=== PATIENT | female | born 1945 ===

== ENCOUNTER 2018-06-08 22:40 | Inpatient (IN) | payer OTHER, MEDICAID ==
[2018-06-08 22:46] VITALS: BMI 23.9
[2018-06-08 22:48] VITALS: O2SAT 96
--- NOTE | 2018-06-08 23:10 | ED PDOC ---
Arrival/HPI - General Chief Complaint: Medical Clearance Time Seen by Provider: 06/08/18 22:41 Historian: Patient - History of Present Illness Narrative History of Present Illness (Text): 06/08/18 23:06 72 year old female, whose past medical history includes bipolar disorder, dementia, and diabetes, presents to the emergency department from [facility] for psych admission. Patient was medically cleared by Dr. Travis and s ent for admission for bipolar disorder and aggressive behavior. Patient denies any complaints at present time. Patient denies any fever, chills, chest pain, shortness of breath, nausea, vomiting, diarrhea, urinary symptoms, back pain, neck pain, headache, dizziness, or any other complaints. PMD: Dr. Sigifredo Paniagua Context: Other (Transfer) Past Medical History - Provider Review Nursing Documentation Reviewed: Yes - Cardiac Hx Hypertension: Yes - Endocrine/Metabolic Hx Diabetes Mellitus Type 2: Yes Hx Hyperthyroidism: Yes Hx Hypothyroidism: Yes - Gastrointestinal Hx Gall Bladder Disease: Yes - Psychiatric Hx Bipolar Disorder: Yes Hx Depression: Yes Hx Substance Use: No - Surgical History Hx Appendectomy: Yes Hx Cholecystectomy: Yes Family/Social History - Physician Review Nursing Documentation Reviewed: Yes Family/Social History: No Known Family HX Smoking Status: Never Smoked Hx Alcohol Use: No Hx Substance Use: No Allergies/Home Meds Allergies/Adverse Reactions: Allergies No Known Allergies Allergy (Verified 06/08/18 22:46) Review of Systems - Physician Review All systems were reviewed & negative as marked: Yes - Review of Systems Constitutional: absent: Fevers, Other (Chills) Respiratory: absent: SOB Cardiovascular: absent: Chest Pain Gastrointestinal: absent: Diarrhea, Nausea, Vomiting Genitourinary Female: absent: Dysuria, Frequency, Hematuria Musculoskeletal: absent: Back Pain, Neck Pain Neurological: absent: Headache, Dizziness Physical Exam Vital Signs Reviewed: Yes Vital Signs Temp Pulse Resp BP Pulse Ox 06/08/18 22:47 97.8 F 89 18 111/70 96 Temperature: Afebrile Blood Pressure: Normal Pulse: Regular Respiratory Rate: Normal Appearance: Positive for: Well-Appearing, Non-Toxic, Comfortable Pain Distress: None Mental Status: Positive for: Alert and Oriented X 3 - Systems Exam Head: Present: Atraumatic, Normocephalic Pupils: Present: PERRL Extroacular Muscles: Present: EOMI Conjunctiva: Present: Normal Mouth: Present: Moist Mucous Membranes Neck: Present: Normal Range of Motion Respiratory/Chest: Present: Clear to Auscultation, Good Air Exchange. No: Respiratory Distress, Accessory Muscle Use Cardiovascular: Present: Regular Rate and Rhythm, Normal S1, S2. No: Murmurs Abdomen: No: Tenderness, Distention, Peritoneal Signs Back: Present: Normal Inspection Upper Extremity: Present: Normal Inspection. No: Cyanosis, Edema Lower Extremity: Present: Normal Inspection. No: Edema Neurological: Present: GCS=15, CN II-XII Intact, Speech Normal Skin: Present: Warm, Dry, Normal Color. No: Rashes Psychiatric: Present: Alert, Oriented x 3, Normal Insight, Normal Concentration Medical Decision Making ED Course and Treatment: 06/08/18 23:11 Impression: 72 year old female presents for psych admission for bipolar disorder and aggressive behavior. Patient was medically cleared by Dr. Travis at [facility]. Plan: -- disposition Progress Notes: - Scribe Statement The provider has reviewed the documentation as recorded by the Arabella Temple Provider Scribe Attestation: All medical record entries made by the Arabella were at my direction and personally dictated by me. I have reviewed the chart and agree that the record accurately reflects my personal performance of the history, physical exam, medical decision making, and the department course for this patient. I have also personally directed, reviewed, and agree with the discharge instructions and disposition. Disposition/Present on Arrival - Present on Arrival Any Indicators Present on Arrival: No History of DVT/PE: No History of Uncontrolled Diabetes: No Urinary Catheter: No History of Decub. Ulcer: No History Surgical Site Infection Following: None - Disposition Have Diagnosis and Disposition been Completed?: Yes Diagnosis: Aggressive behavior, Bipolar disorder Disposition: HOSPITALIZED Disposition Time: 23:05 Condition: STABLE
[2018-06-09] MEDS ORDERED: Magnesium Hydroxide Susp 30 ml UD PO PRN (05:47)
[2018-06-09] MEDS ORDERED: Alum-Mag Hydrox-Simethicone Susp (30 mL) PO PRN (05:47)
[2018-06-09] MEDS ORDERED: Dextrose 50% SYRINGE Inj (50 ml) IV PRN (05:54)
[2018-06-09] MEDS: Levothyroxine 88 MCG TAB PO SCH (07:31)
[2018-06-09] MEDS: Pantoprazole 40 mg EC Tab PO SCH (07:31)
[2018-06-09 07:53] LABS: BASO # 0.03 K/mm3 (0.0-2.0); BASO % 0.4 % (0.0-3.0); EOS # 0.1 (0.0-0.7); EOS % 1.6 % (1.5-5.0); GRAN % 44.7 % (50.0-68.0); HEMOGLOBIN 13.9 g/dL (12.0-16.0); LYMPH # 3.2 (1.2-3.4); LYMPH % 48.1 % (22.0-35.0); MEAN CELL VOLUME 91.7 fl (80.0-105.0); MEAN CORPUSCULAR HEMOGLOBIN 30.2 pg (25.0-35.0); MEAN CORPUSCULAR HGB CONC 32.9 g/dl (31.0-37.0); MEAN PLATELET VOLUME 9.9 fl (7.0-11.0); MONO # 0.4 (0.1-0.6); MONO % 5.2 % (1.0-6.0); RBC 4.6 10^6/uL (3.5-6.1); RED CELL DISTRIBUTION WIDTH 13.8 % (11.5-14.5); WHITE BLOOD COUNT 6.7 10^3/uL (4.5-11.0)
[2018-06-09 08:16] LABS: ALB/GLOB RATIO 1.2 (1.1-1.8); ALBUMIN 3.5 g/dL (3.0-4.8); ALT/SGPT 55 U/L (7-56); AST/SGOT 25 U/L (14-36); BLOOD UREA NITROGEN 15 mg/dL (7-21); CALCIUM 9.4 mg/dL (8.4-10.5); GFR NON-AFRICAN AMERICAN > 60; HDL CHOLESTEROL 40 mg/dL (29-60)
[2018-06-09 08:27] LABS: LDL CHOLESTEROL 137 mg/dL (0-129)
[2018-06-09 09:46] LABS: ALB/GLOB RATIO 1.1 (1.1-1.8); ALBUMIN 3.6 g/dL (3.0-4.8); BILIRUBIN,DIRECT 0.1 mg/dL (0.0-0.4)
[2018-06-09 09:58] LABS: FREE T4 1.21 ng/dL (0.78-2.19); T4 8.9 ug/dL (5.5-11.0)
[2018-06-09 10:11] LABS: T3 1.26 ng/mL (0.97-1.69)
[2018-06-09] MEDS: Insulin Regular 1 UNITS/0.01 ML ML SC SCH ×4 (11:00→21:50)
--- NOTE | 2018-06-09 12:46 | PCM.PSYCH ---
Initial Psychiatric Evaluation - Initial Psychiatric Evaluation Type of Admission: Voluntary Legal Status: Capacity History of Present Illness and Precipitating Events: Patient is a 72-year-old female with a history of bipolar disorder and dementia, prior psychiatric admissions at [facility] for depression and SA via drug OD, compliant with medications prescribed by her retired psychiatrist, Dr. Field who was transferred from [facility] for treatment of depression, anxiety and increased forgetfulness. I reviewed [facility] records which indicate the patient presented to their ER on June 02, 2018 with complaints of dizziness . She was treated for a fracture/dislocation of the left fourth finger and was to instruct a follow up with a hand specialist in a couple days. She was also treated for uncontrolled diabetes and evaluated for dizziness and near syncope. She was noted to somatic, depressed and anxious despite reported compliance with outpatient psychiatric medications of Seroquel 400 HS, Ambien 10 HS and klonopin 0.5 mg pi TID. Apparently patient was very worried because her psychiatrist, Dr. Field recently retired and she didn't know how to obtain another psychiatrist. I met with patient at bedside and although she is cooperative she presents as a poor and vague historian. Patient indicates awareness as she is at [facility] however she has no idea what month or year it is. She reports that she is profoundly depressed and anxious however denies any perceptual disturbance or SI. Presently she denies any discomfort pain or side effects of her medication and has been in fair behavior control since her transfer from [facility] PSYCHIATRIC HISTORY History of bipolar disorder and dementia prior psychiatric admissions at [facility] for depression and SA via drug OD, Compliant with medications prescribed by her retired psychiatrist, Dr. Field-- Seroquel 400 HS, Ambien 10 HS and klonopin 0.5 mg pi TID SOCIAL HISTORY Born and raised in [facility]. Patient has 5 children and reportedly resides in by herself. The patient failed the outpatient lower level of care: Yes Current Medications: Active Medications Generic Name Dose Route Start Last Admin Trade Name Freq PRN Reason Stop Dose Admin Clonazepam 0.5 mg 06/09/18 08:00 Klonopin PO BID JAVY Protocol Zolpidem Tartrate 5 mg 06/09/18 00:16 06/09/18 00:19 Ambien PO 5 mg HS PRN Administration Insomnia Protocol Present on Admission - Present on Admission Any Indicators Present on Admission: No - Notes: Notes:: Please refer to findings from physical exams and ROS from [facility] records as well as 06/08/17 ER records at [facility] Review of Systems - Review of Systems Review of Systems: Please refer to findings from physical exams and ROS from [facility] records as well as 06/08/17 ER records at [facility] - Constitutional Constitutional: As Per HPI - EENT Eyes: As Per HPI Ears: As Per HPI Nose/Mouth/Throat: As Per HPI - Breasts Breasts: As Per HPI - Cardiovascular Cardiovascular: As Per HPI - Respiratory Respiratory: As Per HPI - Gastrointestinal Gastrointestinal: As Per HPI - Genitourinary Genitourinary: As Per HPI - Reproductive: Female Reproductive:Female: As Per HPI - Menstruation Menstruation: As Per HPI - Musculoskeletal Musculoskeletal: As Per HPI - Integumentary Integumentary: As Per HPI - Neurological Neurological: As Per HPI - Psychiatric Psychiatric: As Per HPI - Endocrine Endocrine: As Per HPI - Hematologic/Lymphatic Hematologic: As Per HPI Past Patient History - Past Psychiatric History Prior Professional Help: See HPI - PSYCHIATRIC Hx Bipolar Disorder: Yes Hx Depression: Yes Hx Substance Use: No - CARDIAC Hx Hypertension: Yes - ENDOCRINE/METABOLIC Hx Diabetes Mellitus Type 2: Yes Hx Hyperthyroidism: Yes Hx Hypothyroidism: Yes - GASTROINTESTINAL Hx Gall Bladder Disease: Yes - SURGICAL HISTORY Hx Appendectomy: Yes Hx Cholecystectomy: Yes - Medical/Surgical History Reviewed & confirmed: by nm Meds Allergies/Adverse Reactions: Allergies Allergy/AdvReac Type Severity Reaction Status Date / Time No Known Allergies Allergy Verified 06/09/18 07:11 Mental Status Examination - Personal Presentation Personal Presentation: Looks stated age - Affect Affect: Constricted - Motor Activity Motor Activity: Calm - Reliability in Providing Information Reliability in Providing Information: Poor, due to alteration in thoughts, Poor, due to cognitve impairment - Speech Speech: Organized, Irrelevant - Mood Mood: Depressed, Anxious - Formal Thought Process Formal Thought Process: Loosening of associations - Obsessions/Compulsions Obsessions: No Compulsions: No - Cognitive Functions Orientation: Place Sensorium: Alert Attention/Concentration: Easily distracted Estimate of Intelligence: Average Judgement: Imparied, as evidence by: Poor judgement, Imparied, as evidence by: Lack of insight into illness - Risk Risk: Diminished functioning - Limitations Limitations: Living alone Psychiatric Physical Exam - Physical Exam Reviewed and confirmed: Emergency Department Physical Exam (Please refer to findings from physical exams and ROS from [facility] records as well as 06/08/17 ER records at [facility]) Results - Vital Signs Recent Vital Signs: Last Vital Signs Temp 97.8 F 06/08/18 23:39 Pulse 89 06/08/18 23:39 Resp 18 06/08/18 23:39 BP 111/70 06/08/18 23:39 Pulse Ox 96 06/08/18 23:39 - Labs Result Diagrams: 06/09/18 07:00 06/09/18 07:00 - Impressions Impression: Please refer to findings from physical exams and ROS from [facility] records as well as 06/08/17 ER records at [facility] DSM Plan - DSM 5 DSM 5 Diagnosis: Bipolar Disorder by history Dementia - Recommended/Plan of Treatment Treatment Recommendations and Plan of Treatment: * group, milieu and supportive tx * klonopin 0.5 mg po bid * seroquel 400 mg po hs * ambien 5 mg po HS * vitals reviewed and noted below: Selected Entries 06/09/18 07:32 Temperature 98.6 F Pulse Rate 86 Respiratory 20 Rate Blood Pressure 122/77 * consultation for discharge plan and social issues * Please refer to findings from physical exams and ROS from [facility] records as well as 06/08/17 ER records at [facility] * [facility] June 02, 2018 CBC was within normal limits, BAL<10 UDS negative * [facility] June 02, 2018 EKG rhythm is sinus tachycardia he waves * [facility] admission labs reviewed and noted below: Laboratory Tests 06/09/18 06/09/18 06/09/18 07:00 07:00 07:00 WBC 6.7 RBC 4.60 Hgb 13.9 Hct 42.2 MCV 91.7 MCH 30.2 MCHC 32.9 RDW 13.8 Plt Count 289 MPV 9.9 Gran % 44.7 L Lymph % (Auto) 48.1 H [place] % (Auto) 5.2 Eos % (Auto) 1.6 Baso % (Auto) 0.4 Gran # 3.00 Lymph # (Auto) 3.2 [place] # (Auto) 0.4 Eos # (Auto) 0.1 Baso # (Auto) 0.03 Sodium 138 Potassium 4.0 Chloride 105 Carbon Dioxide 27 Anion Gap 11 BUN 15 Creatinine 0.5 L Est GFR ( Amer) > 60 Est GFR (Non-Af Amer) > 60 Random Glucose 178 H Calcium 9.4 Phosphorus 4.3 Magnesium 1.9 Total Bilirubin 0.4 Direct Bilirubin AST 25 ALT 55 Alkaline Phosphatase 118 Total Protein 6.3 Albumin 3.5 Globulin 2.9 Albumin/Globulin Ratio 1.2 Triglycerides 212 H Cholesterol 226 H LDL Cholesterol Direct 137 H HDL Cholesterol 40 Free T4 Thyroxine (T4) Total T3 TSH 3rd Generation 1.22 06/09/18 06/09/18 08:50 08:50 WBC RBC Hgb Hct MCV MCH MCHC RDW Plt Count MPV Gran % Lymph % (Auto) [place] % (Auto) Eos % (Auto) Baso % (Auto) Gran # Lymph # (Auto) [place] # (Auto) Eos # (Auto) Baso # (Auto) Sodium Potassium Chloride Carbon Dioxide Anion Gap BUN Creatinine Est GFR ( Amer) Est GFR (Non-Af Amer) Random Glucose Calcium Phosphorus Magnesium Total Bilirubin 0.4 Direct Bilirubin 0.1 AST 30 ALT 55 Alkaline Phosphatase 119 Total Protein 6.8 Albumin 3.6 Globulin 3.2 Albumin/Globulin Ratio 1.1 Triglycerides Cholesterol LDL Cholesterol Direct HDL Cholesterol Free T4 1.21 Thyroxine (T4) 8.9 Total T3 1.26 TSH 3rd Generation Projected ELOS: 7 d Prognosis: guarded Discharge Plan and Discharge Criteria: Outpatient MH services, consider assisted living - Tobacco Cessation Tobacco Use Status for the last 30 days: Non User Tobacco Use Treatment Practical Counseling Provided: No - Alcohol or Substance Abuse Does the patient have an Alcohol or Substance Abuse Disorder: No Initial Psych Certification - Initial Certification I certify that the inpatient psychiatric facility admission was medically necessary for either: Treatment which could reasonbly be expected to improve pt's condition, Diagnostic study I estimate of hospitalization is necessary for proper treatment of the patient: 7 Unit of Time: Days
--- NOTE | 2018-06-09 15:54 | CON ---
Covering for Dr. Gonzalez. HISTORY OF PRESENT ILLNESS: The patient is a 72-year-old woman with a past medical history of bipolar disorder who presented from [facility] for psychiatric admission for increased aggressive behavior secondary to underlying bipolar disorder. A medical consultation was placed to manage her comorbid conditions. She presently feels ok and denies fevers, chills, rigors, chest pain or palpitations. PAST MEDICAL HISTORY: As per HPI, also non-insulin dependent diabetes mellitus, hypothyroidism and hyperlipidemia. PAST SURGICAL HISTORY: Appendectomy and cholecystectomy. ALLERGIES: NKDA. MEDICATIONS: Metformin 500 mg p.o. b.i.d, Levemir 15 units SC q.h.s, Levothyroxine 88 mcg p.o. daily, Seroquel 300 mg p.o. b.i.d, and Ambien 5 mg p.o. q.h.s p.r.n. FAMILY HISTORY: Noncontributory. SOCIAL HISTORY: The patient denies any toxic habits. REVIEW OF SYSTEMS: A 12-point review of systems is negative except as per HPI. PHYSICAL EXAMINATION: VITAL SIGNS: Temperature 98.6, pulse 86, blood pressure 122/77, respiratory rate 20, oxygen saturation 98% on room air. GENERAL: No apparent distress. HEENT: PERRL, EOMI. No scleral icterus. No conjunctival pallor. NECK: No JVD, no bruits. LUNGS: Clear to auscultation. CARDIOVASCULAR: Regular rate and rhythm. Normal S1, S2. ABDOMEN: Normoactive bowel sounds. Soft, nontender, nondistended. EXTREMITIES: No edema. NEUROLOGIC: Awake and alert, oriented to person and place. No focal motor deficits. LABORATORY DATA: WBC 6.7, hemoglobin 13.9, hematocrit 42, platelets 289. Sodium 130, potassium 4, chloride 105, bicarb 27, BUN 15, creatinine 0.5, glucose 178. Cholesterol 226, triglycerides 212, LDL 137, HDL 40. TSH pending. Hemoglobin A1c pending. ASSESSMENT: The patient is a 72-year-old woman with a past medical history of bipolar disorder, non-insulin dependent diabetes mellitus and hypothyroidism who was admitted to the psychiatric unit for management of bipolar disorder. PLAN: 1. Bipolar disorder. Continue with care as per the primary psychiatric team. 2. Non-insulin dependent diabetes mellitus. Hemoglobin A1c pending. Continue Metformin 500 mg p.o. twice a day, Levemir 20 units SC q.h.s and Humulin R 5 units SC t.i.d with meals. 3. Hypothyroidism. Continue Synthroid 88 mcg p.o. daily. 4. Hyperlipidemia. We will start Lipitor 20 mg p.o. daily. 5. Prophylaxis. Continue with Protonix for GI prophylaxis. DVT prophylaxis not indicated as the patient is ambulatory. CODE STATUS: Full code. Peter Danielson MD MTDD
[2018-06-09] MEDS ORDERED: Insulin Detemir 100 units/ml Vial (Levemir) SC SCH (22:00)
[2018-06-10] MEDS: Levothyroxine 88 MCG TAB PO SCH (06:20)
[2018-06-10] MEDS: Pantoprazole 40 mg EC Tab PO SCH (06:20)
[2018-06-10] MEDS: Insulin Regular 1 UNITS/0.01 ML ML SC SCH (10:25)
--- NOTE | 2018-06-10 11:52 | PCM.PYCHPN ---
Psychiatric Progress Note - Psychiatric Progress Note Patient seen today, length of contact: 25 min Problems Identified/Issues Discussed: History of Present Illness and Precipitating Events: Patient is a 72-year-old female with a history of bipolar disorder and dementia, prior psychiatric admissions at [facility] for depression and SA via drug OD, compliant with medications prescribed by her retired psychiatrist, Dr. Field who was transferred from [facility] [place] [facility] for treatment of depression, anxiety and increased forgetfulness. I reviewed [facility] records which indicate the patient presented to their ER on June 02, 2018 with complaints of dizziness . She was treated for a fracture/dislocation of the left fourth finger and was to instruct a follow up with a hand specialist in a couple days. She was also treated for uncontrolled diabetes and evaluated for dizziness and near syncope. She was noted to somatic, depressed and anxious despite reported compliance with outpatient psychiatric medications of Seroquel 400 HS, Ambien 10 HS and klonopin 0.5 mg pi TID. Apparently patient was very worried because her psychiatrist, Dr. Field recently retired and she didn't know how to obtain another psychiatrist. I met with patient at bedside and although she is cooperative she presents as a poor and vague historian. Patient indicates awareness as she is at [facility] however she has no idea what month or year it is. She reports that she is profoundly depressed and anxious however denies any perceptual disturbance or SI. Presently she denies any discomfort pain or side effects of her medication and has been in fair behavior control since her transfer from [facility] [place] PSYCHIATRIC HISTORY History of bipolar disorder and dementia prior psychiatric admissions at [facility] for depression and SA via drug OD, Compliant with medications prescribed by her retired psychiatrist, Dr. Field-- Seroquel 400 HS, Ambien 10 HS and klonopin 0.5 mg pi TID SOCIAL HISTORY Born and raised in [facility]. Patient has 5 children and reportedly resides in by herself. PROGRESS NOTE 06/10/18 I reviewed recent notes and met with patient at bedside again. She remains cooperative and responsive though she is still disoriented with forgetful. She remains aware of her current location however she still has no idea what month or year it is though this information was provided to her yesterday, multiple times. She continues to report profound depression (patient appeared to be upset that she did not hear from her son who was in [facility]) and anxiety. She required extra dose of klonopin 0.5 mg last night. Patient continues to deny any perceptual disturbance or SI. Presently she denies any discomfort pain or side effects of her medication and has been in fair behavior control since her transfer from [facility] [place] Diagnostic Results: Bipolar Disorder by history Dementia Medication Change: Yes (klonopin decreased) Medical Record Reviewed: Yes Mental Status Examination - Cognitive Function Orientation: Place Attention: WNL Concentration: Poor Association: Loose Fund of Knowledge: Poor - Mood Mood: Depressed, Anxious - Affect Affect: Constricted - Formal Thought Process Formal Thought Process: Loosening of associations - Suicidal Ideation Suicidal Ideation: No - Homicidal Ideation Homicidal Ideation: No Goal/Treatment Plan - Goal/Treatment Plan Progress Toward Problem(s) and Goals/Treatment Plan: * group, milieu and supportive tx * Appreciate f/u by Dr. Danielson on 06/09/18~starting lipitor, HgA1c elevated 11.1 06/09/18 07:00 Hemoglobin A1c 11.1 H * klonopin 0.5 mg po bid decreased to 0.25 mg po bid and 0.5 mg HS on 06/10/18. This provider explained that this medication will be slowly decreased as it may be contributing her increased forgetfulness and confusion. * seroquel 400 mg po hs * ambien 5 mg po HS * vitals reviewed and noted below: Selected Entries 06/10/18 07:00 Temperature 98.2 F Pulse Rate 91 H Respiratory 19 Rate Blood Pressure 128/72 * consultation for discharge plan and social issues * Please refer to findings from physical exams and ROS from [facility] records as well as 06/08/17 ER records at [facility] * [facility] June 02, 2018 CBC was within normal limits, BAL<10 UDS negative * [facility] June 02, 2018 EKG rhythm is sinus tachycardia he waves * [facility] admission labs reviewed and noted below: Laboratory Tests 06/09/18 06/09/18 06/09/18 07:00 07:00 07:00 WBC 6.7 RBC 4.60 Hgb 13.9 Hct 42.2 MCV 91.7 MCH 30.2 MCHC 32.9 RDW 13.8 Plt Count 289 MPV 9.9 Gran % 44.7 L Lymph % (Auto) 48.1 H [place] % (Auto) 5.2 Eos % (Auto) 1.6 Baso % (Auto) 0.4 Gran # 3.00 Lymph # (Auto) 3.2 [place] # (Auto) 0.4 Eos # (Auto) 0.1 Baso # (Auto) 0.03 Sodium 138 Potassium 4.0 Chloride 105 Carbon Dioxide 27 Anion Gap 11 BUN 15 Creatinine 0.5 L Est GFR ( Amer) > 60 Est GFR (Non-Af Amer) > 60 Random Glucose 178 H Calcium 9.4 Phosphorus 4.3 Magnesium 1.9 Total Bilirubin 0.4 Direct Bilirubin AST 25 ALT 55 Alkaline Phosphatase 118 Total Protein 6.3 Albumin 3.5 Globulin 2.9 Albumin/Globulin Ratio 1.2 Triglycerides 212 H Cholesterol 226 H LDL Cholesterol Direct 137 H HDL Cholesterol 40 Free T4 Thyroxine (T4) Total T3 TSH 3rd Generation 1.22 06/09/18 06/09/18 08:50 08:50 WBC RBC Hgb Hct MCV MCH MCHC RDW Plt Count MPV Gran % Lymph % (Auto) [place] % (Auto) Eos % (Auto) Baso % (Auto) Gran # Lymph # (Auto) [place] # (Auto) Eos # (Auto) Baso # (Auto) Sodium Potassium Chloride Carbon Dioxide Anion Gap BUN Creatinine Est GFR ( Amer) Est GFR (Non-Af Amer) Random Glucose Calcium Phosphorus Magnesium Total Bilirubin 0.4 Direct Bilirubin 0.1 AST 30 ALT 55 Alkaline Phosphatase 119 Total Protein 6.8 Albumin 3.6 Globulin 3.2 Albumin/Globulin Ratio 1.1 Triglycerides Cholesterol LDL Cholesterol Direct HDL Cholesterol Free T4 1.21 Thyroxine (T4) 8.9 Total T3 1.26 TSH 3rd Generation
[2018-06-10] MEDS ORDERED: Insulin Detemir 100 units/ml Vial (Levemir) SC SCH (22:00)
--- NOTE | 2018-06-10 23:15 | PN ---
Covering for Dr. Gonzalez. SUBJECTIVE: The patient was seen and examined at bedside on the psychiatric unit. No acute events overnight. She remains afebrile and hemodynamically stable. She reports poor appetite because she "does not like the food here" but otherwise offers no complaints. PHYSICAL EXAMINATION: VITAL SIGNS: Temperature 98.2, pulse 78, blood pressure 128/77, respiratory rate 19, oxygen saturation 99% on room air. GENERAL: No apparent distress. HEENT: PERRL, EOMI. No scleral icterus. No conjunctival pallor. NECK: No JVD. No bruits. CARDIOPULMONARY: Regular rate and rhythm. Normal S1, S2. No murmurs. LUNGS: Clear to auscultation. ABDOMEN: Normoactive bowel sounds. Soft, nontender, nondistended. EXTREMITIES: No edema. NEUROLOGIC: Awake, alert and oriented x 3. No focal motor deficits. PSYCHIATRIC: Flat affect and poor insight. LABORATORY DATA: No new labs. ASSESSMENT: The patient is a 72-year-old woman with a past medical history of bipolar disorder, insulin-dependent diabetes mellitus and hypothyroidism who was admitted to the psychiatric unit for management of bipolar disorder. PLAN: 1. Bipolar disorder. Continue with care for primary psychiatric team. 2. Insulin-dependent diabetes mellitus, uncontrolled, with most recent A1c of 11.1. We will increase Metformin 850 mg p.o. b.i.d. and continue Levemir 15 units SC q.h.s. We will discontinue premeal insulin given that the patient reports poor appetite. Diabetic counseling has been reinforced and her diet has been changed to a diabetic diet. 3. Hypothyroidism. Continue Synthroid 88 mcg p.o. daily. 4. Hyperlipidemia. Continue Lipitor 20 mg p.o. daily. 5. Prophylaxis. Continue Protonix for GI prophylaxis. DVT prophylaxis not indicated as the patient is ambulatory. CODE STATUS: Full code. Peter Danielson MD MTDD
[2018-06-11] MEDS: Levothyroxine 88 MCG TAB PO SCH (07:19)
[2018-06-11] MEDS: Pantoprazole 40 mg EC Tab PO SCH (07:19)
--- NOTE | 2018-06-11 09:04 | CP.PCM.PN ---
Subjective - Date & Time of Evaluation Date of Evaluation: 06/11/18 Time of Evaluation: 09:03 - Subjective Subjective: Patient seen and examined at bedside. States her only complaints at the moment is that she is feeling depressed. Objective - Vital Signs/Intake and Output Vital Signs (last 24 hours): Temp Pulse Resp BP Pulse Ox 98.2 F 80 19 134/86 96 06/11/18 07:00 06/11/18 07:00 06/11/18 07:00 06/11/18 07:00 06/08/18 23:39 - Medications Medications: Current Medications Acetaminophen (Tylenol 325mg Tab) 325 mg PO Q6H PRN PRN Reason: Pain, Mild (1-3) Al Hydrox/Mg Hydrox/Simethicone (Maalox Plus 30 Ml) 30 ml PO DAILY PRN PRN Reason: Dyspepsia Atorvastatin Calcium (Lipitor) 20 mg PO DIN [facility] Last Admin: 06/10/18 18:11 Dose: 20 mg Clonazepam (Klonopin) 0.5 mg PO HS PRN; Protocol PRN Reason: Anxiety Clonazepam (Klonopin) 0.25 mg PO BID PRN; Protocol PRN Reason: Anxiety Last Admin: 06/10/18 18:20 Dose: 0.25 mg Dextrose (Dextrose 50% Inj) 0 ml IV STAT PRN; Protocol PRN Reason: Hypoglycemia Protocol Dextrose (Dextrose 5% In Water 1000 Ml) 1,000 mls @ 0 mls/hr IV .Q0M PRN; Protocol PRN Reason: Hypoglycemia Protocol Insulin Detemir (Levemir) 15 unit SC [facility] Last Admin: 06/10/18 22:32 Dose: 15 units Levothyroxine Sodium (Synthroid) 88 mcg PO 0600 [facility] Last Admin: 06/11/18 07:19 Dose: 88 mcg Magnesium Hydroxide (Milk Of Magnesia) 30 ml PO DAILY PRN PRN Reason: Constipation Meclizine HCl (Antivert) 25 mg PO Q8 PRN PRN Reason: Allergy symptoms Metformin HCl (Glucophage) 850 mg PO BID [facility] Pantoprazole Sodium (Protonix Ec Tab) 40 mg PO 0600 [facility] Last Admin: 06/11/18 07:19 Dose: 40 mg Quetiapine Fumarate (Seroquel) 300 mg PO [facility]; Protocol Last Admin: 06/10/18 22:07 Dose: 300 mg Zolpidem Tartrate (Ambien) 5 mg PO HS PRN; Protocol PRN Reason: Insomnia Last Admin: 06/09/18 21:49 Dose: 5 mg - Labs Labs: 06/09/18 07:00 06/09/18 07:00 - Constitutional Appears: Non-toxic, No Acute Distress - Head Exam Head Exam: ATRAUMATIC, NORMAL INSPECTION, NORMOCEPHALIC - Eye Exam Eye Exam: Normal appearance - ENT Exam ENT Exam: Mucous Membranes Moist - Respiratory Exam Respiratory Exam: Decreased Breath Sounds, NORMAL BREATHING PATTERN - Cardiovascular Exam Cardiovascular Exam: REGULAR RHYTHM, +S1, +S2 - GI/Abdominal Exam GI & Abdominal Exam: Soft, Normal Bowel Sounds - Neurological Exam Neurological Exam: Alert, Awake, Oriented x3 - Psychiatric Exam Psychiatric exam: Depressed - Skin Skin Exam: Normal Color, Warm Assessment and Plan - Assessment and Plan (Free Text) Assessment: Patient is a 72 female with history of bipolar disorder and dementia presenting with depression, anxiety, and increased forgetfullness. Plan Bipolar disorder -Continue with seroquel and klonopin as per psych IDDM -HgA1C 11.1 -Continue metformin 850 mg BID -Continue Levemir 15 U SC qHS -AC insulin on hold due to patient's decreased eating -Diabetic diet -Diabetic counseling Hypothyroidism -Continue with synthroid 88 mcg PO qDay Hyperlipidemia -Continue with lipitor 20 mg PO qDay GI/DVT prophylaxis: Protonix/DVT ppx not necessary as per tom score
--- NOTE | 2018-06-11 12:24 | PCM.BM ---
Treatment Plan Problems - Problems identified on initial assessmt AGITATED BEHAVIOR Date Initiated: 06/11/18 Time Initiated: 10:00 Assessment reference: NA Status: Active Priority: 1 NON COMPLIANCE WITH TX Date Initiated: 06/11/18 Time Initiated: 10:00 Assessment reference: NA Status: Active Priority: 2 Treatment assets and liabiliti Patient Assests: cooperative, negotiates basic needs Patient Liabilities: imparied memory - Milieu Protocol Maintain good personal hygiene: every shift Encourage regular showers, every shift Remind patient to perform daily oral care, every shift Assist patient to perform ADL's Maintain personal safety: daily Educate patient to report safety concerns to staff, daily Monitor environment for contraband/sharps Medication safety: Monitor for expected outcome, potential side effects: daily, Assess barriers to learning: daily, Assess readiness for medication education: daily Milieu Narrative: * group, milieu and supportive tx * Appreciate f/u by Dr. Danielson on 06/09/18~starting lipitor, HgA1c elevated 11.1 06/09/18 07:00 Hemoglobin A1c 11.1 H * klonopin 0.5 mg po bid decreased to 0.25 mg po bid and 0.5 mg HS on 06/10/18. This provider explained that this medication will be slowly decreased as it may be contributing her increased forgetfulness and confusion. * seroquel 400 mg po hs * ambien 5 mg po HS * vitals reviewed and noted below: Selected Entries 06/10/18 07:00 Temperature 98.2 F Pulse Rate 91 H Respiratory 19 Rate Blood Pressure 128/72 * consultation for discharge plan and social issues * Please refer to findings from physical exams and ROS from [facility] r ecords as well as 06/08/17 ER records at [facility] * [facility] June 02, 2018 CBC was within normal limits, BAL<10 UDS negative * [facility] June 02, 2018 EKG rhythm is sinus tachycardia he waves * [facility] admission labs reviewed and noted below: Laboratory Tests 06/09/18 06/09/18 06/09/18 07:00 07:00 07:00 WBC 6.7 RBC 4.60 Hgb 13.9 Hct 42.2 MCV 91.7 MCH 30.2 MCHC 32.9 RDW 13.8 Plt Count 289 MPV 9.9 Gran % 44.7 L Lymph % (Auto) 48.1 H [place] % (Auto) 5.2 Eos % (Auto) 1.6 Baso % (Auto) 0.4 Gran # 3.00 Lymph # (Auto) 3.2 [place] # (Auto) 0.4 Eos # (Auto) 0.1 Baso # (Auto) 0.03 Sodium 138 Potassium 4.0 Chloride 105 Carbon Dioxide 27 Anion Gap 11 BUN 15 Creatinine 0.5 L Est GFR ( Amer) > 60 Est GFR (Non-Af Amer) > 60 Random Glucose 178 H Calcium 9.4 Phosphorus 4.3 Magnesium 1.9 Total Bilirubin 0.4 Direct Bilirubin AST 25 ALT 55 Alkaline Phosphatase 118 Total Protein 6.3 Albumin 3.5 Globulin 2.9 Albumin/Globulin Ratio 1.2 Triglycerides 212 H Cholesterol 226 H LDL Cholesterol Direct 137 H HDL Cholesterol 40 Free T4 Thyroxine (T4) Total T3 TSH 3rd Generation 1.22 06/09/18 06/09/18 08:50 08:50 WBC RBC Hgb Hct MCV MCH MCHC RDW Plt Count MPV Gran % Lymph % (Auto) [place] % (Auto) Eos % (Auto) Baso % (Auto) Gran # Lymph # (Auto) [place] # (Auto) Eos # (Auto) Baso # (Auto) Sodium Potassium Chloride Carbon Dioxide Anion Gap BUN Creatinine Est GFR ( Amer) Est GFR (Non-Af Amer) Random Glucose Calcium Phosphorus Magnesium Total Bilirubin 0.4 Direct Bilirubin 0.1 AST 30 ALT 55 Alkaline Phosphatase 119 Total Protein 6.8 Albumin 3.6 Globulin 3.2 Albumin/Globulin Ratio 1.1 Triglycerides Cholesterol LDL Cholesterol Direct HDL Cholesterol Free T4 1.21 Thyroxine (T4) 8.9 Total T3 1.26 TSH 3rd Generation Family Contact Family involvement: Family/SO is involved Family contact: Patient agrees to contact Family contact name: John [phone], daughter Family contacted how many times per week?: 2 Discharge/Continuing Care - Education Needs Education Needs: Patient Medication, Patient Diagnosis/Disease Process, Patient Coping Skills, Patient Community resources, Patient Activities of Daily Living, Patient Pain, Patient Nutrition, Patient Uses of Medical Equipment, Patient Health Practices/Safety, Patient Personal Hygiene/Grooming, Patient Aftercare Safety Plan - Discharge Discharge Criteria: Tolerates medication w/o severe side effects, Free of Suicidal thoughts, Free of agitation, Normal sleep pattern, Ability to care for self, Reduction of target symptoms Discharge to:: Home - Treatment Team Participation Patient/Family/SO Statement: * group, milieu and supportive tx * Appreciate f/u by Dr. Danielson on 06/09/18~starting lipitor, HgA1c elevated 11.1 06/09/18 07:00 Hemoglobin A1c 11.1 H * klonopin 0.5 mg po bid decreased to 0.25 mg po bid and 0.5 mg HS on 06/10/18. This provider explained that this medication will be slowly decreased as it may be contributing her increased forgetfulness and confusion. * seroquel 400 mg po hs * ambien 5 mg po HS * vitals reviewed and noted below: Selected Entries 06/10/18 07:00 Temperature 98.2 F Pulse Rate 91 H Respiratory 19 Rate Blood Pressure 128/72 * consultation for discharge plan and social issues * Please refer to findings from physical exams and ROS from [facility] records as well as 06/08/17 ER records at [facility] * [facility] June 02, 2018 CBC was within normal limits, BAL<10 UDS negative * [facility] June 02, 2018 EKG rhythm is sinus tachycardia he waves * [facility] admission labs reviewed and noted below: Laboratory Tests 06/09/18 06/09/18 06/09/18 07:00 07:00 07:00 WBC 6.7 RBC 4.60 Hgb 13.9 Hct 42.2 MCV 91.7 MCH 30.2 MCHC 32.9 RDW 13.8 Plt Count 289 MPV 9.9 Gran % 44.7 L Lymph % (Auto) 48.1 H [place] % (Auto) 5.2 Eos % (Auto) 1.6 Baso % (Auto) 0.4 Gran # 3.00 Lymph # (Auto) 3.2 [place] # (Auto) 0.4 Eos # (Auto) 0.1 Baso # (Auto) 0.03 Sodium 138 Potassium 4.0 Chloride 105 Carbon Dioxide 27 Anion Gap 11 BUN 15 Creatinine 0.5 L Est GFR ( Amer) > 60 Est GFR (Non-Af Amer) > 60 Random Glucose 178 H Calcium 9.4 Phosphorus 4.3 Magnesium 1.9 Total Bilirubin 0.4 Direct Bilirubin AST 25 ALT 55 Alkaline Phosphatase 118 Total Protein 6.3 Albumin 3.5 Globulin 2.9 Albumin/Globulin Ratio 1.2 Triglycerides 212 H Cholesterol 226 H LDL Cholesterol Direct 137 H HDL Cholesterol 40 Free T4 Thyroxine (T4) Total T3 TSH 3rd Generation 1.22 06/09/18 06/09/18 08:50 08:50 WBC RBC Hgb Hct MCV MCH MCHC RDW Plt Count MPV Gran % Lymph % (Auto) [place] % (Auto) Eos % (Auto) Baso % (Auto) Gran # Lymph # (Auto) [place] # (Auto) Eos # (Auto) Baso # (Auto) Sodium Potassium Chloride Carbon Dioxide Anion Gap BUN Creatinine Est GFR ( Amer) Est GFR (Non-Af Amer) Random Glucose Calcium Phosphorus Magnesium Total Bilirubin 0.4 Direct Bilirubin 0.1 AST 30 ALT 55 Alkaline Phosphatase 119 Total Protein 6.8 Albumin 3.6 Globulin 3.2 Albumin/Globulin Ratio 1.1 Triglycerides Cholesterol LDL Cholesterol Direct HDL Cholesterol Free T4 1.21 Thyroxine (T4) 8.9 Total T3 1.26 TSH 3rd Generation
[2018-06-11] MEDS: Ergocalciferol 50,000 Intl Units Cap PO SCH (13:37)
[2018-06-11] MEDS: Insulin Lispro (HUMAlog) HIGH Coverage SC SCH ×2 (13:44→18:33)
--- NOTE | 2018-06-11 13:54 | PCM.PYCHPN ---
Psychiatric Progress Note - Psychiatric Progress Note Patient seen today, length of contact: 30 minutes Patient Chief Complaint: "I am thinking of dying, I want to , I am so depressed" Problems Identified/Issues Discussed: Suicide/ homicide prevention, past psychiatric h/o, current psychiatric symptoms, medical problems, risk/benefits and alternatives of medications, m edications compliance, coping strategies, substance abuse h/o, relapse prevention, importance of follow up with psychiatrist and therapist, discharge plan. Medical Problems: Patient has multiple medical issues, including Insulin dependent diabetes mellitus Hypothyroidism Hyperlipidemia History of dizziness, syncopal episodes Recent fracture and dislocation of the left fourth finger Diagnostic Results: 06/09/18 07:00 06/09/18 07:00 Lab Results 06/11/18 07:21: POC Glucose (mg/dL) 139 H 06/10/18 20:56: POC Glucose (mg/dL) 178 H 06/10/18 16:15: POC Glucose (mg/dL) 146 H 06/10/18 11:03: POC Glucose (mg/dL) 215 H 06/10/18 08:37: POC Glucose (mg/dL) 101 06/09/18 21:06: POC Glucose (mg/dL) 248 H 06/09/18 17:22: POC Glucose (mg/dL) 141 H 06/09/18 11:17: POC Glucose (mg/dL) 221 H 06/09/18 08:50: Free T4 1.21, Thyroxine (T4) 8.9, Total T3 1.26 06/09/18 08:50: Fructosamine 325 H, Homocysteine Cardiovas 7.6 06/09/18 08:50: 25-OH Vitamin D Total 26.0 L 06/09/18 08:50: Total Bilirubin 0.4, Direct Bilirubin 0.1, AST 30, ALT 55, Alkaline Phosphatase 119, Total Protein 6.8, Albumin 3.6, Globulin 3.2, Albumin/Globulin Ratio 1.1, Homocysteine 8.6, Free T3 pg/mL 2.79 06/09/18 07:00: Hemoglobin A1c 11.1 H 06/09/18 07:00: Sodium 138, Potassium 4.0, Chloride 105, Carbon Dioxide 27, Anion Gap 11, BUN 15, Creatinine 0.5 L, Est GFR ( Amer) > 60, Est GFR (Non-Af Amer) > 60, Random Glucose 178 H, Calcium 9.4, Phosphorus 4.3, Magnesium 1.9, Total Bilirubin 0.4, AST 25, ALT 55, Alkaline Phosphatase 118, Total Protein 6.3, Albumin 3.5, Globulin 2.9, Albumin/Globulin Ratio 1.2, Triglycerides 212 H, Cholesterol 226 H, LDL Cholesterol Direct 137 H, HDL Cholesterol 40 06/09/18 07:00: WBC 6.7, RBC 4.60, Hgb 13.9, Hct 42.2, MCV 91.7, MCH 30.2, MCHC 32.9, RDW 13.8, Plt Count 289, MPV 9.9, Gran % 44.7 L, Lymph % (Auto) 48.1 H, [place] % (Auto) 5.2, Eos % (Auto) 1.6, Baso % (Auto) 0.4, Gran # 3.00, Lymph # (Auto) 3.2, [place] # (Auto) 0.4, Eos # (Auto) 0.1, Baso # (Auto) 0.03 06/09/18 07:00: TSH 3rd Generation 1.22 06/09/18 07:00: RPR Nonreactive Vital Signs Temp Pulse Resp BP Pulse Ox 06/11/18 07:00 98.2 F 80 19 134/86 06/10/18 16:00 78 128/77 06/10/18 07:00 98.2 F 91 H 19 128/72 06/09/18 15:46 93 H 109/64 06/09/18 07:32 98.6 F 86 20 122/77 06/09/18 06:22 16 06/08/18 23:39 97.8 F 89 18 111/70 96 06/08/18 22:47 97.8 F 89 18 111/70 96 DSM 5 Symptoms Update: As per Dr. Cummings's assessment: Patient is a 72-year-old female with a history of bipolar disorder and dementia, prior psychiatric admissions at [facility] for depression and SA via drug OD, compliant with medications prescribed by her retired psychiatrist, Dr. Field who was transferred from [facility] for treatment of depression, anxiety and increased forgetfulness. Patient was seen and examined, discussed with staff, notes reviewed, [facility] record was reviewed. As per report, over the weekend patient was preferring to stay in her bed, appears to be depressed, hopeless, patient also has episodes of forgetfulness, at the same time no agitation, no aggression, personal hygiene is poor. Patient was seen today at the treatment team meeting, patient presented to be depressed, tearful, patient is Gu[place]ian-speaking and this quality analyst/technical writer utilized [employer], [employer] #[id number] translation. Patient reported that she feels "very depressed", patient thinking of dying, patient wants to be , patient was not able to understand the question if she has any plan or intent to kill herself, at the same time as per Dr. Cummings's note patient had suicidal ideation with plan to overdose on medications. Patient reported that she feels anxious, patient reported that her psychiatrist retired and at present moment she does not have psychiatrist who will be p rescribing any medications. Patient denied hearing voices, denied seeing things, denied paranoid ideations. Patient complaint of insomnia, feeling of hopelessness and helplessness. Patient reported that she had history of suicidal attempts in the past but was not able to recall. In regards all of her forgetfulness patient was aware that she is in [facility], patient knows the month and year but did not know the date. Patient reported that her daughter John is helping her to make decisions. This quality analyst/technical writer educated patient about treatment options including medication management as well as possible ECT treatment patient replied that she does not know. PSYCHIATRIC HISTORY History of bipolar disorder and dementia prior psychiatric admissions at [facility] for depression and SA via drug OD, Compliant with medications prescribed by her retired psychiatrist, Dr. Field-- Seroquel 400 HS, Ambien 10 HS and klonopin 0.5 mg pi TID SOCIAL HISTORY Born and raised in [place]. Patient has 5 children and reportedly resides in by herself. So far patient tolerates medications well, no side effects observed or reported, aims 0, no EPS. This quality analyst/technical writer will implement Lexapro for depressive symptoms, risk benefits and alternatives discussed with the patient. Diagnostic Results: Bipolar Disorder by history Dementia Medication Change: Yes (klonopin decreased) Medical Record Reviewed: Yes Consults ordered or reviewed: Medical consult appreciated, please see Dr. Downs's notes for more detailed information. Mental Status Examination - Cognitive Function Orientation: Place Attention: WNL Concentration: Poor Association: Loose Fund of Knowledge: Poor - Mood Mood: Depressed ("I am very depressed and anxious"), Anxious - Affect Affect: Constricted - Speech Speech: Appropriate - Formal Thought Process Formal Thought Process: Loosening of associations - Suicidal Ideation Suicidal Ideation: No - Homicidal Ideation Homicidal Ideation: No Goal/Treatment Plan - Goal/Treatment Plan Need for Continued Stay: Remain at risks for inpatient hospitalization, Severe depression anxiety, Discharge may exacerbated symptoms, Severe functional impairment Progress Toward Problem(s) and Goals/Treatment Plan: Milieu/structure/supportive therapy SW consultation for discharge plan and social issues Med management: Seroquel 300 mg at the nighttime for mood stabilization Ambien 5 mg as needed for insomnia Lexapro 5 mg daily Synthroid 88 mcg daily Drisdol 50,000 units every 7 days Possible ECT if patient willing and cleared by medical team Family involvement Follow up on labs Will monitor closely Pt was educated about risk/benefits and alternatives of medications, coping strategies (safety plan, suicide prevention), relapse prevention, importance of follow up with psychiatrist and therapist, stay away from drugs/alcohol/smoking Estimated Date of D/C: 06/15/18 - Smoking Cessation Smoking Cessation Initiated: No
[2018-06-11] MEDS: Omega-3-Acid Ethyl Esters 1 GM Cap PO SCH ×2 (16:44→16:47)
--- NOTE | 2018-06-11 17:15 | PN ---
DATE: 06/11/2018 LOCATION: The patient was seen in psychiatry floor 519, bed 1. SUBJECTIVE: The patient was seen lying in the bed. Overnight nurse's notes were reviewed. The patient had episodes of anxiety for which the patient was receiving Vistaril. No homicidal or suicidal ideations were noted. PHYSICAL EXAMINATION: VITAL SIGNS: T-Max 98.2, pulse 80, blood pressure 134/86, respirations 19, and O2 sat is 96%. HEENT: Head: Normocephalic and atraumatic. HEENT examination shows pinkish, pale conjunctivae. Anicteric sclerae. No oropharyngeal lesion. No neck rigidity. CHEST: Kyphosis. LUNGS: Shows no audible crackles, rales, or wheezing. CARDIOVASCULAR: S1 and S2, regular rhythm. ABDOMEN: Soft. Positive bowel sounds. No palpable hepatosplenomegaly noted. GENITALIA: Female. RECTAL: Deferred. EXTREMITIES: No pitting edema. No calf tenderness. No Homans sign. NEUROLOGIC: The patient is alert, awake, and responsive. She is able to move upper and lower extremities without assistance. Gait examination not tested. DIAGNOSTIC DATA: Diagnostics from 06/09/2018, all diagnostics since hospitalization reviewed. IMPRESSION: 1. Acute exacerbation of bipolar disorder. 2. History of dementia. 3. Possible behavioral disorder. 4. Aggressive behavior. 5. Dementia. 6. Hypertension. 7. Uncontrolled diabetes mellitus with hemoglobin A1c of 11.1 and fructosamine of 325. 8. Hypercholesterolemia. 9. Hyperlipidemia. 10. Hypertriglyceridemia with elevated LDL. 11. Hypovitaminosis D. 12. History of hypothyroidism. 13. Insulin requiring diabetes mellitus. 14. Insomnia. 15. Hypothyroidism. PLAN: At this time, the patient has been ordered Ambien 5 at bedtime p.r.n., Antivert 25 mg every 8 hours p.r.n., Drisdol 50,000 units weekly, Humalog high dose sliding scale coverage a.c., Klonopin 0.5 mg at bedtime p.r.n., Klonopin 0.25 b.i.d. p.r.n., Levemir 15 units twice a day with breakfast and dinner, Lipitor 40 mg daily, Lovaza 1 g twice a day, Protonix 40 mg daily, Seroquel 300 mg at bedtime, Synthroid 88 mcg daily, Tylenol p.r.n., heart healthy diet. The patient is to be continued on the above therapeutic intervention. While patient is in the hospital, patient will be closely followed up with the psychiatry floor. The patient has to be optimized from the psychiatric point of view regarding her bipolar disorder. The patient's fingerstick blood sugar will be monitored to achieve normal glycemia. Dictated and electronically signed, not read. Tim Gonzalez MD
[2018-06-11] MEDS: Insulin Detemir 100 units/ml Vial (Levemir) SC SCH (18:33)
[2018-06-12] MEDS: Pantoprazole 40 mg EC Tab PO SCH (05:48)
[2018-06-12] MEDS: Levothyroxine 88 MCG TAB PO SCH (05:48)
[2018-06-12] MEDS: Insulin Detemir 100 units/ml Vial (Levemir) SC SCH ×2 (08:00→17:34)
[2018-06-12] MEDS: Insulin Lispro (HUMAlog) HIGH Coverage SC SCH ×3 (08:00→17:33)
[2018-06-12 13:21] LABS: GLYCOMARK(R) 0.9 mcg/mL (7.5-28.4)
[2018-06-12] MEDS: Omega-3-Acid Ethyl Esters 1 GM Cap PO SCH ×3 (13:37→16:58)
--- NOTE | 2018-06-12 14:16 | PCM.PYCHPN ---
Psychiatric Progress Note - Psychiatric Progress Note Patient seen today, length of contact: 30 minutes Patient Chief Complaint: "oh doctor, I don't want to have ECT, I had it before, I had 9 treatments, I was feeling worse, I feel very anxious now, God help me..." Problems Identified/Issues Discussed: ECT education, risk/benefits and alternatives discussed, suicide/ homicide prevention, past psychiatric h/o, current psychiatric symptoms, medical problems, risk/benefits and alternatives of medications, medications compliance, coping strategies, substance abuse h/o, relapse prevention, importance of follow up with psychiatrist and therapist, discharge plan. Medical Problems: Patient has multiple medical issues, including Insulin dependent diabetes mellitus Hypothyroidism Hyperlipidemia History of dizziness, syncopal episodes Recent fracture and dislocation of the left fourth finger Diagnostic Results: 06/09/18 07:00 06/09/18 07:00 Lab Results 06/11/18 07:21: POC Glucose (mg/dL) 139 H 06/10/18 20:56: POC Glucose (mg/dL) 178 H 06/10/18 16:15: POC Glucose (mg/dL) 146 H 06/10/18 11:03: POC Glucose (mg/dL) 215 H 06/10/18 08:37: POC Glucose (mg/dL) 101 06/09/18 21:06: POC Glucose (mg/dL) 248 H 06/09/18 17:22: POC Glucose (mg/dL) 141 H 06/09/18 11:17: POC Glucose (mg/dL) 221 H 06/09/18 08:50: Free T4 1.21, Thyroxine (T4) 8.9, Total T3 1.26 06/09/18 08:50: Fructosamine 325 H, Homocysteine Cardiovas 7.6 06/09/18 08:50: 25-OH Vitamin D Total 26.0 L 06/09/18 08:50: Total Bilirubin 0.4, Direct Bilirubin 0.1, AST 30, ALT 55, Al kaline Phosphatase 119, Total Protein 6.8, Albumin 3.6, Globulin 3.2, Albumin/Globulin Ratio 1.1, Homocysteine 8.6, Free T3 pg/mL 2.79 06/09/18 07:00: Hemoglobin A1c 11.1 H 06/09/18 07:00: Sodium 138, Potassium 4.0, Chloride 105, Carbon Dioxide 27, Anion Gap 11, BUN 15, Creatinine 0.5 L, Est GFR ( Amer) > 60, Est GFR (Non-Af Amer) > 60, Random Glucose 178 H, Calcium 9.4, Phosphorus 4.3, Magnesium 1.9, Total Bilirubin 0.4, AST 25, ALT 55, Alkaline Phosphatase 118, Total Protein 6.3, Albumin 3.5, Globulin 2.9, Albumin/Globulin Ratio 1.2, Triglycerides 212 H, Cholesterol 226 H, LDL Cholesterol Direct 137 H, HDL Cholesterol 40 06/09/18 07:00: WBC 6.7, RBC 4.60, Hgb 13.9, Hct 42.2, MCV 91.7, MCH 30.2, MCHC 32.9, RDW 13.8, Plt Count 289, MPV 9.9, Gran % 44.7 L, Lymph % (Auto) 48.1 H, [place] % (Auto) 5.2, Eos % (Auto) 1.6, Baso % (Auto) 0.4, Gran # 3.00, Lymph # (A uto) 3.2, [place] # (Auto) 0.4, Eos # (Auto) 0.1, Baso # (Auto) 0.03 06/09/18 07:00: TSH 3rd Generation 1.22 06/09/18 07:00: RPR Nonreactive Vital Signs Temp Pulse Resp BP Pulse Ox 06/11/18 07:00 98.2 F 80 19 134/86 06/10/18 16:00 78 128/77 06/10/18 07:00 98.2 F 91 H 19 128/72 06/09/18 15:46 93 H 109/64 06/09/18 07:32 98.6 F 86 20 122/77 06/09/18 06:22 16 06/08/18 23:39 97.8 F 89 18 111/70 96 06/08/18 22:47 97.8 F 89 18 [id number] 96 DSM 5 Symptoms Update: Patient is a 72-year-old female with a history of bipolar disorder and dementia, prior psychiatric admissions at [facility] for depression and SA via drug OD, compliant with medications prescribed by her retired psychiatrist, Dr. Field who was transferred from [facility] for treatment of depression, anxiety and increased forgetfulness. Patient was seen and examined in her room today with the mental health worker. pt appeared to be anxious, tearful, complaint that she was not able to sleep. pt reported "oh God, I am very anxious..", pt was hysterical about ECT, said that she had that treatment in the past, but "I was feeling worse after", pt reported that she had ECT in [facility]. pt reported that she was not able to sleep. As per nursing staff patient was refusing to eat yesterday "with my depression I do not like to eat anything, I feel very anxious", patient was encouraged to eat meanwhile patient is self isolating, not socializing, not doing that well. interior surface insulation worker and this provider gave a call to patient daughter but she was not available, left a message, awaiting for callback. So far patient tolerates medications well, no side effects observed or reported, aims 0, no EPS. This magazine writer will implement Lexapro for depressive symptoms, risk benefits and alternatives discussed with the patient. Diagnostic Results: Bipolar Disorder by history Dementia Medication Change: Yes (Tino scheduled) Medical Record Reviewed: Yes Consults ordered or reviewed: Medical consult appreciated, please see Dr. Downs's notes for more detailed information. Mental Status Examination - Cognitive Function Orientation: Place Attention: WNL Concentration: Poor Association: Loose Fund of Knowledge: Poor - Mood Mood: Depressed ("I am very depressed and anxious"), Anxious - Affect Affect: Constricted - Speech Speech: Appropriate - Formal Thought Process Formal Thought Process: Loosening of associations - Suicidal Ideation Suicidal Ideation: No - Homicidal Ideation Homicidal Ideation: No Goal/Treatment Plan - Goal/Treatment Plan Need for Continued Stay: Remain at risks for inpatient hospitalization, Severe depression anxiety, Discharge may exacerbated symptoms, Severe functional impairment Progress Toward Problem(s) and Goals/Treatment Plan: Milieu/structure/supportive therapy SW consultation for discharge plan and social issues Med management: Seroquel 300 mg at the nighttime for mood stabilization Ambien 5 mg as needed for insomnia Lexapro 5 mg daily Synthroid 88 mcg daily Drisdol 50,000 units every 7 days Patient refused ECT treatment 5 mg twice a day 0.5 mg at the nighttime for anxiety Family involvement Follow up on labs Will monitor closely Pt was educated about risk/benefits and alternatives of medications, coping strategies (safety plan, suicide prevention), relapse prevention, importance of follow up with psychiatrist and therapist, stay away from drugs/alcohol/smoking Estimated Date of D/C: 06/15/18
--- NOTE | 2018-06-12 16:07 | PN ---
DATE: 06/12/2018 SUBJECTIVE: The patient is in 519, bed 1. Overnight nurse's note, psychiatry notes were reviewed. The patient was found to be depressed, anxious with history of suicidal ideation, suicidal attempt secondary to drug overdose. The patient has expressed that she wants to as per the psychiatrist's notes. PHYSICAL EXAMINATION: VITAL SIGNS: Overnight vital signs were reviewed. T-max 98.8, heart rate 81, blood pressure 144/82, respirations 20, O2 sat 96%. HEENT: Head examination is normocephalic, atraumatic. HEENT examination shows pink conjunctivae. Anicteric sclerae. No oropharyngeal lesion. NECK: No neck rigidity. CHEST: Kyphosis. LUNGS: Shows no audible crackle, rales or wheezing. CARDIOVASCULAR: S1, S2, regular rhythm. Questionable soft systolic murmur left sternal border, right second intercostal space. ABDOMEN: Soft. Positive bowel sound. No palpable hepatosplenomegaly noted. GENITALIA: Female. RECTAL: Examination is deferred. EXTREMITIES: Shows no pitting edema, no calf tenderness, no Homans' sign. NEUROLOGIC: The patient is alert, awake, responsive, is able to move upper and lower extremity without assistance. Gait examination is not tested. Neurological examination is negative for any gross motor, sensory deficits. VASCULAR: Palpable pulses. LABORATORY DATA: Fingerstick blood sugar was reviewed. Most of the fingerstick blood sugar is under 200. IMPRESSION AND PLAN: 1. Acute exacerbation of bipolar disorder. 2. Acute exacerbation of general anxiety disorder and major depression. 3. Suicidal ideation. 4. History of suicide attempt secondary to drug overdose. 5. Major depression. 6. Dementia. 7. Insulin-requiring diabetes mellitus. 8. Hypothyroidism. 9. Hypertension. 10. Hyperlipidemia. 11. Hypovitaminosis D. Plan at this time, the patient is to be continued on all the medications as per the MAR. The patient's psychiatric medications will be modified and ordered as per the psychiatrist. The patient has been ordered out of bed to chair, physical therapy, occupational therapy, ambulation therapy. The patient's current medications will be as per the MAR of today which was reviewed, updated, and modified. The patient will be followed up from the medical service while the patient is in the inpatient unit on Psychiatry. Tim MD Carlos
[2018-06-13] MEDS: Levothyroxine 88 MCG TAB PO SCH (05:59)
[2018-06-13] MEDS: Pantoprazole 40 mg EC Tab PO SCH (05:59)
[2018-06-13] MEDS: Insulin Lispro (HUMAlog) HIGH Coverage SC SCH ×3 (09:41→16:38)
[2018-06-13] MEDS: Omega-3-Acid Ethyl Esters 1 GM Cap PO SCH ×2 (09:48→17:19)
[2018-06-13] MEDS: Insulin Detemir 100 units/ml Vial (Levemir) SC SCH ×2 (09:48→17:03)
--- NOTE | 2018-06-13 13:35 | PN ---
DATE: 06/13/2018 LOCATION: The patient is in room 519, bed 1. SUBJECTIVE: Patient is still on Psychiatry floor. The patient has episodic depression, anxiety. Denies suicidal, homicidal ideation and attempt. OBJECTIVE: VITAL SIGNS: T-max 98.3, heart rate 91, blood pressure 128/71, respirations 20, O2 sat not documented. Fingerstick blood sugar 143, 132, 209, 179, 169. HEAD: The patient's head examination normocephalic, atraumatic. HEENT examination shows pinkish pale conjunctivae. Anicteric sclerae, dry oral mucosa. NECK: No neck rigidity. CHEST: Kyphosis. LUNGS: No audible crackle, rales or wheezing. CARDIOVASCULAR: S1, S2, regular rhythm. ABDOMEN: Soft. Positive bowel sounds. No palpable hepatosplenomegaly. No organomegaly noted. GENITALIA: Female. RECTAL: Deferred. EXTREMITIES: Shows no pitting edema, no calf tenderness, no Homans' sign. NEUROLOGIC: The patient is alert, awake, responsive, is able to move upper and lower extremity without assistance. Gait examination is not tested and deferred. The patient was seen by physical therapist yesterday but was unable to do physical therapy. DIAGNOSTIC DATA: None. IMPRESSION AND PLAN: 1. Acute exacerbation of bipolar disorder. 2. Suicidal ideation and history of suicidal attempt secondary to drug overdose. 3. Acute exacerbation of bipolar disorder. 4. Dementia. 5. History of hypertension. 6. Insulin-requiring diabetes mellitus. 7. Hypertension. 8. Hyperlipidemia. 9. Hypovitaminosis D. 10. History of hypothyroidism. 11. Acute exacerbation of depression and anxiety. PLAN: At this time, the patient is to be continued on Psychiatry floor with optimization of the patient's psychotropic medication. The patient will be continued on all the medications as per the MAR of today. Psychiatric medications will be optimized, adjusted and modified as per Psychiatry recommendation. The patient's basal insulin has been increased from 15 units breakfast and dinner to 20 units breakfast and dinner, which is Levemir 20 units twice a day. With sliding scale coverage, the patient's blood sugar will be monitored. The patient will be continued to be followed up from medical perspective while the patient is on the Psychiatry floor. The patient's clinical course will be followed closely and if needed therapeutic diagnostic intervention will be ordered as needed Dictated and electronically signed, not read. Tim Gonzalez MD [facility] # [id number]
--- NOTE | 2018-06-13 14:17 | PCM.PYCHPN ---
Psychiatric Progress Note - Psychiatric Progress Note Patient seen today, length of contact: 30 minutes Patient Chief Complaint: "oh doctor, I feel very anxious now, very depressed, very depressed." Problems Identified/Issues Discussed: ECT education, risk/benefits and alternatives discussed, suicide/ homicide prevention, past psychiatric h/o, current psychiatric symptoms, medical problems, risk/benefits and alternatives of medications, medications compliance, coping strategies, substance abuse h/o, relapse prevention, importance of follow up with psychiatrist and therapist, discharge plan. Medical Problems: Patient has multiple medical issues, including Insulin dependent diabetes mellitus Hypothyroidism Hyperlipidemia History of dizziness, syncopal episodes Recent fracture and dislocation of the left fourth finger Diagnostic Results: 06/09/18 07:00 06/09/18 07:00 Lab Results 06/11/18 07:21: POC Glucose (mg/dL) 139 H 06/10/18 20:56: POC Glucose (mg/dL) 178 H 06/10/18 16:15: POC Glucose (mg/dL) 146 H 06/10/18 11:03: POC Glucose (mg/dL) 215 H 06/10/18 08:37: POC Glucose (mg/dL) 101 06/09/18 21:06: POC Glucose (mg/dL) 248 H 06/09/18 17:22: POC Glucose (mg/dL) 141 H 06/09/18 11:17: POC Glucose (mg/dL) 221 H 06/09/18 08:50: Free T4 1.21, Thyroxine (T4) 8.9, Total T3 1.26 06/09/18 08:50: Fructosamine 325 H, Homocysteine Cardiovas 7.6 06/09/18 08:50: 25-OH Vitamin D Total 26.0 L 06/09/18 08:50: Total Bilirubin 0.4, Direct Bilirubin 0.1, AST 30, ALT 55, Alkaline Phosphatase 119, Total Protein 6.8, Albumin 3.6, Globulin 3.2, Albumin/Globulin Ratio 1.1, Homocysteine 8.6, Free T3 pg/mL 2.79 06/09/18 07:00: Hemoglobin A1c 11.1 H 06/09/18 07:00: Sodium 138, Potassium 4.0, Chloride 105, Carbon Dioxide 27, Anion Gap 11, BUN 15, Creatinine 0.5 L, Est GFR ( Amer) > 60, Est GFR (Non-Af Amer) > 60, Random Glucose 178 H, Calcium 9.4, Phosphorus 4.3, Magnesium 1.9, Total Bilirubin 0.4, AST 25, ALT 55, Alkaline Phosphatase 118, Total Protein 6.3, Albumin 3.5, Globulin 2.9, Albumin/Globulin Ratio 1.2, Triglycerides 212 H, Cholesterol 226 H, LDL Cholesterol Direct 137 H, HDL Cholesterol 40 06/09/18 07:00: WBC 6.7, RBC 4.60, Hgb 13.9, Hct 42.2, MCV 91.7, MCH 30.2, MCHC 32.9, RDW 13.8, Plt Count 289, MPV 9.9, Gran % 44.7 L, Lymph % (Auto) 48.1 H, [place] % (Auto) 5.2, Eos % (Auto) 1.6, Baso % (Auto) 0.4, Gran # 3.00, Lymph # (Auto) 3.2, [place] # (Auto) 0.4, Eos # (Auto) 0.1, Baso # (Auto) 0.03 06/09/18 07:00: TSH 3rd Generation 1.22 06/09/18 07:00: RPR Nonreactive Vital Signs Temp Pulse Resp BP Pulse Ox 06/11/18 07:00 98.2 F 80 19 134/86 06/10/18 16:00 78 128/77 06/10/18 07:00 98.2 F 91 H 19 128/72 06/09/18 15:46 93 H 109/64 06/09/18 07:32 98.6 F 86 20 122/77 06/09/18 06:22 16 06/08/18 23:39 97.8 F 89 18 111/70 96 06/08/18 22:47 97.8 F 89 18 111/70 96 DSM 5 Symptoms Update: Patient is a 72-year-old female with a history of bipolar disorder and dementia, prior psychiatric admissions at [facility] for depression and SA via drug OD, compliant with medications prescribed by her retired psyc hiatrist, Dr. Field who was transferred from [facility] for treatment of depression, anxiety and increased forgetfulness. She was seen and examined today at the [facility] with mental health worker, patient still has poor personal hygiene, as per staff after strong encouragement pt took a shower, pt is not eating well approximately 10/20% of her meal "I don't want to eat, I am not that hungry". pt reported to feel "very depressed and anxious, I cannot sleep, I cannot think straight" As per report patient was officially diagnosed with bipolar disorder, patient has history of intentional overdose on pills, last year patient had 2 suicidal attempts by overdose on medications, patient also had ECT treatment at [facility], but pt does not want to have ECT treatment now. Collateral's were obtained from patient's daughter, by SW: 06/13/18: Trigger for the pt's depression was pt's son who suffered from bipolar disorder and non-compliant with medications, taking an impulsive trip to [facility] in April 2018. While patient was at [facility], pt's psychotropic medications were stopped, causing patient to become increasingly depressed. Two psychiatric admissions at [facility] in the Summer and Fall 2018 due to overdose on medications. Since that time pt's daughter controls pt's medications. Patient's daughter reports patient has hx of ECT about 15-20 years ago at [facility]. Patient's daughter reports ECT was effective. Pt has NO h/o dementia. Patient psychiatrist retired and patient had difficulties to find one. Patient's daughter is not pt's POA. SW asked if she will be pt's POA if patient is agreeable. So far patient tolerates medications well, no side effects observed or reported, aims 0, no EPS. pt was educated again about ECt, but pt feels reluctant. This technical writer and editor implemented Lexapro for depressive symptoms, risk benefits and alternatives discussed with the patient. Diagnostic Results: Bipolar Disorder by history Dementia Medication Change: Yes (lexapro increased) Medical Record Reviewed: Yes Consults ordered or reviewed: Medical consult appreciated, please see Dr. Downs's notes for more detailed information. Dietitian consult was initiated Mental Status Examination - Cognitive Function Orientation: Place Attention: WNL Concentration: Poor Association: Loose Fund of Knowledge: Poor - Mood Mood: Depressed ("I am very depressed and anxious"), Anxious - Affect Affect: Constricted - Speech Speech: Appropriate - Formal Thought Process Formal Thought Process: Loosening of associations - Suicidal Ideation Suicidal Ideation: No - Homicidal Ideation Homicidal Ideation: No Goal/Treatment Plan - Goal/Treatment Plan Need for Continued Stay: Remain at risks for inpatient hospitalization, Severe depression anxiety, Discharge may exacerbated symptoms, Severe functional impairment Progress Toward Problem(s) and Goals/Treatment Plan: Milieu/structure/supportive therapy SW consultation for discharge plan and social issues Med management: Seroquel 300 mg at the nighttime for mood stabilization Ambien 5 mg as needed for insomnia Lexapro 10 mg daily Synthroid 88 mcg daily Drisdol 50,000 units every 7 days Patient refused ECT treatment, but might greatly benefit from it Klonopin 0.25mg twice a day and 0.5 mg at the nighttime for anxiety Family involvement, collaterals appreciated Follow up on labs Will monitor closely Pt was educated about risk/benefits and alternatives of medications, coping strategies (safety plan, suicide prevention), relapse prevention, importance of follow up with psychiatrist and therapist, stay away from drugs/alcohol/smoking Estimated Date of D/C: 06/19/18
[2018-06-14] MEDS: Levothyroxine 88 MCG TAB PO SCH (06:28)
[2018-06-14] MEDS: Pantoprazole 40 mg EC Tab PO SCH (06:28)
[2018-06-14] MEDS ORDERED: Dextrose 50% SYRINGE Inj (50 ml) IV PRN (07:09)
[2018-06-14] MEDS: Insulin Detemir 100 units/ml Vial (Levemir) SC SCH ×2 (08:57→17:36)
[2018-06-14] MEDS: Insulin Lispro (HUMAlog) HIGH Coverage SC SCH ×3 (08:59→17:20)
[2018-06-14] MEDS: Omega-3-Acid Ethyl Esters 1 GM Cap PO SCH ×2 (08:59→16:00)
--- NOTE | 2018-06-14 09:26 | PN ---
DATE: 06/14/2018 LOCATION: The patient is in room 519 bed one. SUBJECTIVE: Overnight nurse's notes were reviewed. The patient was found to be depressed and anxious. Though patient participated in social activities. According to one of the nurses' notes, the patient was not giving sliding scale coverage despite patient's blood sugar was greater than 260. The reason for that is unknown. OBJECTIVE: VITAL SIGNS: T-max 98.3, pulse 91, blood pressure 128/71, respirations 20. The patient's fingerstick blood sugar for last 24 hours were reviewed. HEENT: The patient's head examination normocephalic, atraumatic. HEENT examination shows pinkish conjunctivae. Anicteric sclerae. No oropharyngeal lesion. NECK: No neck rigidity. CHEST: Kyphosis. LUNGS: Shows no audible crackle, rales or wheezing. CARDIOVASCULAR: S1, S2, regular rhythm. No audible murmur, gallop or rub. ABDOMEN: Soft. Positive bowel sounds. No palpable hepatosplenomegaly noted. GENITALIA: Female. RECTAL: Deferred. EXTREMITIES: Shows no pitting edema, no calf tenderness, no Homans' sign. NEUROLOGIC: The patient is alert, awake, responsive. He is able to move upper and lower extremities. Gait examination is not tested. VASCULAR: Palpable pulses. Motor strength is 5/5 in upper and lower extremities. Gait examination is not tested. DIAGNOSTICS None from today. IMPRESSION AND PLAN: 1. Acute exacerbation of bipolar disorder. 2. Dementia. 3. History of suicidal ideation, suicidal attempt. 4. Acute exacerbation of depression and anxiety. 5. History of insulin-requiring uncontrolled diabetes mellitus with hyperglycemia. 6. Hypovitaminosis D. 7. Hyperlipidemia. 8 Insomnia. 9. Hyperglycemia. PLAN: At this time, the patient will be continued on therapeutic intervention as per the MAR. The patient will be considered continued on basal and bolus insulin. The patient will be continued on Levemir twice a day. The patient will be continued on sliding scale blood sugar coverage, Humalog high-dose, a.c. and bedtime. The patient will be continued on the psychotropic medications as per the Psychiatry. The patient's further therapeutic intervention regarding the patient's psych status will be as per the psychiatrist. The patient's blood sugar and fingerstick blood sugar will be monitored and if the patient continues to have hyperglycemia in the next 24 to 48 hours, the patient's insulin dose will be tested. We will re-enforce the patient's nurses that the patient needs to get sliding scale coverage as per the protocol. Dictated and electronically signed, not read. Tim Gonzalez MD
--- NOTE | 2018-06-14 14:30 | PCM.PYCHPN ---
Psychiatric Progress Note - Psychiatric Progress Note Patient seen today, length of contact: 30 minutes Patient Chief Complaint: "oh doctor, I feel very anxious now, very depressed, very depressed." Problems Identified/Issues Discussed: ECT education, risk/benefits and alternatives discussed, suicide/ homicide prevention, past psychiatric h/o, current psychiatric symptoms, medical problems, risk/benefits and alternatives of medications, medications compliance, coping strategies, substance abuse h/o, relapse prevention, importance of follow up with psychiatrist and therapist, discharge plan. Medical Problems: Patient has multiple medical issues, including Insulin dependent diabetes mellitus Hypothyroidism Hyperlipidemia History of dizziness, syncopal episodes Recent fracture and dislocation of the left fourth finger Diagnostic Results: 06/09/18 07:00 06/09/18 07:00 Lab Results 06/11/18 07:21: POC Glucose (mg/dL) 139 H 06/10/18 20:56: POC Glucose (mg/dL) 178 H 06/10/18 16:15: POC Glucose (mg/dL) 146 H 06/10/18 11:03: POC Glucose (mg/dL) 215 H 06/10/18 08:37: POC Glucose (mg/dL) 101 06/09/18 21:06: POC Glucose (mg/dL) 248 H 06/09/18 17:22: POC Glucose (mg/dL) 141 H 06/09/18 11:17: POC Glucose (mg/dL) 221 H 06/09/18 08:50: Free T4 1.21, Thyroxine (T4) 8.9, Total T3 1.26 06/09/18 08:50: Fructosamine 325 H, Homocysteine Cardiovas 7.6 06/09/18 08:50: 25-OH Vitamin D Total 26.0 L 06/09/18 08:50: Total Bilirubin 0.4, Direct Bilirubin 0.1, AST 30, ALT 55, Alkaline Phosphatase 119, Total Protein 6.8, Albumin 3.6, Globulin 3.2, Albumin/Globulin Ratio 1.1, Homocysteine 8.6, Free T3 pg/mL 2.79 06/09/18 07:00: Hemoglobin A1c 11.1 H 06/09/18 07:00: Sodium 138, Potassium 4.0, Chloride 105, Carbon Dioxide 27, Anion Gap 11, BUN 15, Creatinine 0.5 L, Est GFR ( Amer) > 60, Est GFR (Non-Af Amer) > 60, Random Glucose 178 H, Calcium 9.4, Phosphorus 4.3, Magnesium 1.9, Total Bilirubin 0.4, AST 25, ALT 55, Alkaline Phosphatase 118, Total Protein 6.3, Albumin 3.5, Globulin 2.9, Albumin/Globulin Ratio 1.2, Triglycerides 212 H, Cholesterol 226 H, LDL Cholesterol Direct 137 H, HDL Cholesterol 40 06/09/18 07:00: WBC 6.7, RBC 4.60, Hgb 13.9, Hct 42.2, MCV 91.7, MCH 30.2, MCHC 32.9, RDW 13.8, Plt Count 289, MPV 9.9, Gran % 44.7 L, Lymph % (Auto) 48.1 H, [place] % (Auto) 5.2, Eos % (Auto) 1.6, Baso % (Auto) 0.4, Gran # 3.00, Lymph # (Auto) 3.2, [place] # (Auto) 0.4, Eos # (Auto) 0.1, Baso # (Auto) 0.03 06/09/18 07:00: TSH 3rd Generation 1.22 06/09/18 07:00: RPR Nonreactive Vital Signs Temp Pulse Resp BP Pulse Ox 06/11/18 07:00 98.2 F 80 19 134/86 06/10/18 16:00 78 128/77 06/10/18 07:00 98.2 F 91 H 19 128/72 06/09/18 15:46 93 H 109/64 06/09/18 07:32 98.6 F 86 20 122/77 06/09/18 06:22 16 06/08/18 23:39 97.8 F 89 18 111/70 96 06/08/18 22:47 97.8 F 89 18 111/70 96 DSM 5 Symptoms Update: Patient is a 72-year-old female with a history of bipolar disorder and dementia, prior psychiatric admissions at [facility] for depression and SA via drug OD, compliant with medications prescribed by her retired psy chiatrist, Dr. Field who was transferred from [facility] (formerly [facility]) for treatment of depression, anxiety and increased forgetfulness. She was seen and examined today at the [facility] with mental health worker, patient still has poor personal hygiene, as per staff after strong encouragement pt took a shower, pt is not eating well approximately 10/20% of her meal "I don't want to eat, I am not that hungry". pt reported to feel "very depressed and anxious, I cannot sleep, I cannot think straight", patient is willing to increase dose of Lexapro and klonopin, patient denied hearing voices, denied seeing things, patient has difficulties to function. As per report patient was officially diagnosed with bipolar disorder, patient has history of intentional overdose on pills, last year patient had 2 suicidal attempts by overdose on medications, patient also had ECT treatment at [facility], [place], but pt does not want to have ECT treatment now. Collateral's were obtained from patient's daughter, by SW: 06/13/18: Trigger for the pt's depression was pt's son who suffered from bipolar disorder and non-compliant with medications, taking an impulsive trip to [facility] in April 2018. While patient was at [facility] [place], pt's psychotropic medications were stopped, causing patient to become increasingly depressed. Two psychiatric admissions at [facility] in the Summer and Fall 2017 due to overdo se on medications. Since that time pt's daughter controls pt's medications. Patient's daughter reports patient has hx of ECT about 15-20 years ago at [facility] [place]. Patient's daughter reports ECT was effective. Pt has NO h/o dementia. Patient psychiatrist retired and patient had difficulties to find one. Patient's daughter is not pt's POA. SW asked if she will be pt's POA if patient is agreeable. So far patient tolerates medications well, no side effects observed or reported, aims 0, no EPS. pt was educated again about ECt, but pt feels reluctant. 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 Diagnostic Results: Bipolar Disorder by history Patient does not have a history of dementia Medication Change: Yes (lexapro increased, Klonopin increased) Medical Record Reviewed: Yes Consults ordered or reviewed: Medical consult appreciated, please see Dr. Downs's notes for more detailed information. Dietitian consult was initiated Mental Status Examination - Cognitive Function Orientation: Place Attention: WNL Concentration: Poor Association: Loose Fund of Knowledge: Poor - Mood Mood: Depressed ("I am very depressed and anxious"), Anxious - Affect Affect: Constricted - Speech Speech: Appropriate - Formal Thought Process Formal Thought Process: Loosening of associations - Suicidal Ideation Suicidal Ideation: No - Homicidal Ideation Homicidal Ideation: No Goal/Treatment Plan - Goal/Treatment Plan Need for Continued Stay: Remain at risks for inpatient hospitalization, Severe depression anxiety, Discharge may exacerbated symptoms, Severe functional impairment Progress Toward Problem(s) and Goals/Treatment Plan: Milieu/structure/supportive therapy SW consultation for discharge plan and social issues Med management: Seroquel 300 mg at the nighttime for mood stabilization Ambien 5 mg as needed for insomnia Lexapro 15 mg daily Synthroid 88 mcg daily Drisdol 50,000 units every 7 days Patient refused ECT treatment, but might greatly benefit from it Klonopin 0.5mg twice a day and 0.5 mg at the nighttime for anxiety Family involvement, collaterals appreciated Follow up on labs Will monitor closely Pt was educated about risk/benefits and alternatives of medications, coping strategies (safety plan, suicide prevention), relapse prevention, importance of follow up with psychiatrist and therapist, stay away from drugs/alcohol/smoking Estimated Date of D/C: 06/19/18
[2018-06-15] MEDS: Pantoprazole 40 mg EC Tab PO SCH (06:18)
[2018-06-15] MEDS: Levothyroxine 88 MCG TAB PO SCH (06:18)
[2018-06-15] MEDS: Omega-3-Acid Ethyl Esters 1 GM Cap PO SCH ×2 (10:01→16:10)
[2018-06-15] MEDS: Insulin Lispro (HUMAlog) HIGH Coverage SC SCH ×3 (10:02→17:49)
[2018-06-15] MEDS: Insulin Detemir 100 units/ml Vial (Levemir) SC SCH ×2 (10:04→17:42)
--- NOTE | 2018-06-15 13:09 | PCM.PYCHPN ---
Psychiatric Progress Note - Psychiatric Progress Note Patient seen today, length of contact: 30 minutes Patient Chief Complaint: "oh doctor, I feel very anxious now, I do not know what to expect". Problems Identified/Issues Discussed: ECT education, risk/benefits and alternatives discussed, suicide/ homicide prevention, past psychiatric h/o, current psychiatric symptoms, medical problems, risk/benefits and alternatives of medications, medications compliance, coping strategies, substance abuse h/o, relapse prevention, importance of follow up with psychiatrist and therapist, discharge plan. Medical Problems: Patient has multiple medical issues, including Insulin dependent diabetes mellitus Hypothyroidism Hyperlipidemia History of dizziness, syncopal episodes Recent fracture and dislocation of the left fourth finger Diagnostic Results: 06/09/18 07:00 06/09/18 07:00 Lab Results 06/11/18 07:21: POC Glucose (mg/dL) 139 H 06/10/18 20:56: POC Glucose (mg/dL) 178 H 06/10/18 16:15: POC Glucose (mg/dL) 146 H 06/10/18 11:03: POC Glucose (mg/dL) 215 H 06/10/18 08:37: POC Glucose (mg/dL) 101 06/09/18 21:06: POC Glucose (mg/dL) 248 H 06/09/18 17:22: POC Glucose (mg/dL) 141 H 06/09/18 11:17: POC Glucose (mg/dL) 221 H 06/09/18 08:50: Free T4 1.21, Thyroxine (T4) 8.9, Total T3 1.26 06/09/18 08:50: Fructosamine 325 H, Homocysteine Cardiovas 7.6 06/09/18 08:50: 25-OH Vitamin D Total 26.0 L 06/09/18 08:50: Total Bilirubin 0.4, Direct Bilirubin 0.1, AST 30, ALT 55, Alkaline Phosphatase 119, Total Protein 6.8, Albumin 3.6, Globulin 3.2, Albumin/Globulin Ratio 1.1, Homocysteine 8.6, Free T3 pg/mL 2.79 06/09/18 07:00: Hemoglobin A1c 11.1 H 06/09/18 07:00: Sodium 138, Potassium 4.0, Chloride 105, Carbon Dioxide 27, Anion Gap 11, BUN 15, Creatinine 0.5 L, Est GFR ( Amer) > 60, Est GFR (Non-Af Amer) > 60, Random Glucose 178 H, Calcium 9.4, Phosphorus 4.3, Magnesium 1.9, Total Bilirubin 0.4, AST 25, ALT 55, Alkaline Phosphatase 118, Total Protein 6.3, Albumin 3.5, Globulin 2.9, Albumin/Globulin Ratio 1.2, Triglycerides 212 H, Cholesterol 226 H, LDL Cholesterol Direct 137 H, HDL Cholesterol 40 06/09/18 07:00: WBC 6.7, RBC 4.60, Hgb 13.9, Hct 42.2, MCV 91.7, MCH 30.2, MCHC 32.9, RDW 13.8, Plt Count 289, MPV 9.9, Gran % 44.7 L, Lymph % (Auto) 48.1 H, [place] % (Auto) 5.2, Eos % (Auto) 1.6, Baso % (Auto) 0.4, Gran # 3.00, Lymph # (Auto) 3.2, [place] # (Auto) 0.4, Eos # (Auto) 0.1, Baso # (Auto) 0.03 06/09/18 07:00: TSH 3rd Generation 1.22 06/09/18 07:00: RPR Nonreactive Vital Signs Temp Pulse Resp BP Pulse Ox 06/11/18 07:00 98.2 F 80 19 134/86 06/10/18 16:00 78 128/77 06/10/18 07:00 98.2 F 91 H 19 128/72 06/09/18 15:46 93 H 109/64 06/09/18 07:32 98.6 F 86 20 122/77 06/09/18 06:22 16 06/08/18 23:39 97.8 F 89 18 111/70 96 06/08/18 22:47 97.8 F 89 18 111/70 96 DSM 5 Symptoms Update: Patient is a 72-year-old female with a history of bipolar disorder and dementia, prior psychiatric admissions at [facility] for depression and SA via drug OD, compliant with medications prescribed by her retired psychi atrist, Dr. Field who was transferred from [facility] for treatment of depression, anxiety and increased forgetfulness. She was seen and examined today at the [facility] with mental health worker, patient still has poor personal hygiene. as per staff report pt has some improvements such as pt started to eat better, pt took a shower. pt said that she is doing "little better, but I am anxious, very anxious", pt said that her son is coming back from [facility] and she feels "very anxious, I d on't know what to expect..." (off note pt's son suffers from bipolar disorder and noncompliant with meds). Patient reported that she tolerated medications well, patient reported that her mood is "little better", but appears to be depressed, flat and tearful affect. Patient denied any psychotic symptoms. As per report patient was officially diagnosed with bipolar disorder, patient has history of intentional overdose on pills, last year patient had 2 suicidal attempts by overdose on medications, patient also had ECT treatment at [facility], but pt does not want to have ECT treatment now. Collateral's were obtained from patient's daughter, by SW: 06/13/18: Trigger for the pt's depression was pt's son who suffered from bipolar disorder and non-compliant with medications, taking an impulsive trip to [facility] in April 2018. While patient was at [facility], pt's psychotropic medications were stopped, causing patient to become increasingly depressed. Two psychiatric admissions at [facility] in the Summer and Fall 2018 due to overdose on medications. Since that time pt's daughter controls pt's medications. Patient's daughter reports patient has hx of ECT about 15-20 years ago at [facility]. Patient's daughter reports ECT was effective. Pt has NO h/o dementia. Patient psychiatrist retired and patient had difficulties to find one. Patient's daughter is not pt's POA. SW asked if she will be pt's POA if patient is agreeable. So far patient tolerates medications well, no side effects observed or reported, aims 0, no EPS. Diagnostic Results: Bipolar Disorder by history Patient does not have a history of dementia Medication Change: Yes (Seroquel increased) Medical Record Reviewed: Yes Consults ordered or reviewed: Medical consult appreciated, please see Dr. Downs's notes for more detailed information. Dietitian consult was initiated Mental Status Examination - Cognitive Function Orientation: Place Attention: WNL Concentration: Poor Association: Loose Fund of Knowledge: Poor - Mood Mood: Depressed ("I am very depressed and anxious"), Anxious - Affect Affect: Constricted (And tearful) - Speech Speech: Appropriate - Formal Thought Process Formal Thought Process: No Impairment - Suicidal Ideation Suicidal Ideation: No - Homicidal Ideation Homicidal Ideation: No Goal/Treatment Plan - Goal/Treatment Plan Need for Continued Stay: Remain at risks for inpatient hospitalization, Severe depression anxiety, Discharge may exacerbated symptoms, Severe functional impairment Progress Toward Problem(s) and Goals/Treatment Plan: Milieu/structure/supportive therapy SW consultation for discharge plan and social issues Med management: Seroquel 200 mg twice a day for mood stabilization Ambien 5 mg as needed for insomnia Lexapro 15 mg daily Synthroid 88 mcg daily Drisdol 50,000 units every 7 days Patient refused ECT treatment, but might greatly benefit from it Klonopin 0.5mg twice a day and 0.5 mg at the nighttime for anxiety Family involvement, collaterals appreciated Follow up on labs Will monitor closely Pt was educated about risk/benefits and alternatives of medications, coping strategies (safety plan, suicide prevention), relapse prevention, importance of follow up with psychiatrist and therapist, stay away from drugs/alcohol/smoking Estimated Date of D/C: 06/19/18
--- NOTE | 2018-06-15 21:14 | PN ---
DATE: 06/15/2018 SUBJECTIVE: The patient is seen again lying in bed in room 519, bed 1. The patient refuses to be out of bed to chair. The patient does not want to be out of bed to chair and in the dayroom. The patient appears to be depressed and anxious. Overnight nurse's notes were reviewed. The patient was found to be cooperative. Mood was okay as described by the nurses. No auditory or visual hallucination was noted. The patient is spending more time in the room. PHYSICAL EXAMINATION GENERAL: The patient is seen lying in the bed. VITAL SIGNS: T-max 98.9, heart rate 89, blood pressure 138/87, respirations 20. HEENT: Head is normocephalic, atraumatic. HEENT examination shows pink conjunctivae. Anicteric sclerae, dry oral mucosa. NECK: No neck rigidity. CHEST: Kyphosis. CARDIOPULMONARY: S1, S2, regular rhythm. No audible murmur, gallop or rub. LUNGS: Shows no audible crackle, rales or wheezing. ABDOMEN: Soft. Positive bowel sound. No palpable hepatosplenomegaly. GENITALIA: Female. RECTAL: Deferred. EXTREMITIES: Shows no pitting edema. No calf tenderness. No Judy's signs. NEUROLOGIC: The patient is alert, awake, responsive. He is able to move upper lower extremity without assistance. Gait examination is not tested. MUSCULOSKELETAL: Shows a body mass index of 24. LABORATORY DATA: Fingerstick blood sugar 129, 109, 166, 114, 212, 143. DIAGNOSTICS: None from today. RPR is negative. IMPRESSION: 1. Acute exacerbation of anxiety disorder and major depression. 2. Major depression and anxiety disorder. 3. Bipolar disorder. 4. Insulin-requiring diabetes mellitus. 5. Hypothyroidism. 6. Hyperlipidemia. 7. Left fourth finger fracture secondary to fall. 8. Questionable history of dementia. 9. History of suicidal ideation, suicidal attempt secondary to drug overdose. 10. Memory dysfunction. 11. Poor personal hygiene. 12. History of ECT treatment. 13. Insomnia. 14. Questionable vertigo versus dizziness. 15. Hypovitaminosis D. 16. Insulin-requiring diabetes mellitus. 17. Depression. 18. Hypertriglyceridemia. 19. Hyperlipidemia. PLAN: The patient is currently being managed by psychiatrist. Current medications, Ambien 5 mg at bedtime p.r.n., Antivert 25 mg every 8 p.r.n., Drisdol 50,000 units weekly, Humalog high-dose sliding scale coverage a.c., Klonopin 0.5 mg b.i.d. and Klonopin 0.5 mg at bedtime, Levemir 20 units breakfast and dinner, Lexapro 15 mg daily, Lipitor 40 mg daily, Lovaza 1 g twice a day, Protonix 40 mg daily, Seroquel 200 mg a.m. and at bedtime, Synthroid 88 mcg daily. The patient is to be continued on Psychiatry floor as per psychiatrist's recommendation. The expected length of stay and possible discharge is on 06/19/2018 as per the psychiatrist. Dictated and electronically signed, not read. Tim Gonzalez MD
[2018-06-16] MEDS: Levothyroxine 88 MCG TAB PO SCH (07:11)
[2018-06-16] MEDS: Pantoprazole 40 mg EC Tab PO SCH (07:11)
[2018-06-16] MEDS: Insulin Lispro (HUMAlog) HIGH Coverage SC SCH ×3 (08:32→17:32)
[2018-06-16] MEDS: Omega-3-Acid Ethyl Esters 1 GM Cap PO SCH ×2 (09:22→16:26)
[2018-06-16] MEDS: Insulin Detemir 100 units/ml Vial (Levemir) SC SCH ×2 (09:28→18:06)
--- NOTE | 2018-06-16 14:37 | PCM.PYCHPN ---
Psychiatric Progress Note - Psychiatric Progress Note Patient seen today, length of contact: 30 minutes Patient Chief Complaint: "oh doctor, I feel very anxious now, I have a headache now" Problems Identified/Issues Discussed: ECT education, risk/benefits and alternatives discussed, suicide/ homicide prevention, past psychiatric h/o, current psychiatric symptoms, medical problems, risk/benefits and alternatives of medications, medications compliance, coping strategies, substance abuse h/o, relapse prevention, importance of follow up with psychiatrist and therapist, discharge plan. Medical Problems: Patient has multiple medical issues, including Insulin dependent diabetes mellitus Hypothyroidism Hyperlipidemia History of dizziness, syncopal episodes Recent fracture and dislocation of the left fourth finger Diagnostic Results: 06/09/18 07:00 06/09/18 07:00 Lab Results 06/11/18 07:21: POC Glucose (mg/dL) 139 H 06/10/18 20:56: POC Glucose (mg/dL) 178 H 06/10/18 16:15: POC Glucose (mg/dL) 146 H 06/10/18 11:03: POC Glucose (mg/dL) 215 H 06/10/18 08:37: POC Glucose (mg/dL) 101 06/09/18 21:06: POC Glucose (mg/dL) 248 H 06/09/18 17:22: POC Glucose (mg/dL) 141 H 06/09/18 11:17: POC Glucose (mg/dL) 221 H 06/09/18 08:50: Free T4 1.21, Thyroxine (T4) 8.9, Total T3 1.26 06/09/18 08:50: Fructosamine 325 H, Homocysteine Cardiovas 7.6 06/09/18 08:50: 25-OH Vitamin D Total 26.0 L 06/09/18 08:50: Total Bilirubin 0.4, Direct Bilirubin 0.1, AST 30, ALT 55, Alkaline Phosphatase 119, Total Protein 6.8, Albumin 3.6, Globulin 3.2, Albumin /Globulin Ratio 1.1, Homocysteine 8.6, Free T3 pg/mL 2.79 06/09/18 07:00: Hemoglobin A1c 11.1 H 06/09/18 07:00: Sodium 138, Potassium 4.0, Chloride 105, Carbon Dioxide 27, [place] Gap 11, BUN 15, Creatinine 0.5 L, Est GFR ( Amer) > 60, Est GFR (Non- Af Amer) > 60, Random Glucose 178 H, Calcium 9.4, Phosphorus 4.3, Magnesium 1.9, Total Bilirubin 0.4, AST 25, ALT 55, Alkaline Phosphatase 118, Total Protein 6.3, Albumin 3.5, Globulin 2.9, Albumin/Globulin Ratio 1.2, Triglycerides 212 H, Cholesterol 226 H, LDL Cholesterol Direct 137 H, HDL Cholesterol 40 06/09/18 07:00: WBC 6.7, RBC 4.60, Hgb 13.9, Hct 42.2, MCV 91.7, MCH 30.2, MCHC 32.9, RDW 13.8, Plt Count 289, MPV 9.9, Gran % 44.7 L, Lymph % (Auto) 48.1 H, [place] % (Auto) 5.2, Eos % (Auto) 1.6, Baso % (Auto) 0.4, Gran # 3.00, Lymph # (Auto) 3.2, [place] # (Auto) 0.4, Eos # (Auto) 0.1, Baso # (Auto) 0.03 06/09/18 07:00: TSH 3rd Generation 1.22 06/09/18 07:00: RPR Nonreactive Vital Signs Temp Pulse Resp BP Pulse Ox 06/11/18 07:00 98.2 F 80 19 134/86 06/10/18 16:00 78 128/77 06/10/18 07:00 98.2 F 91 H 19 128/72 06/09/18 15:46 93 H 109/64 06/09/18 07:32 98.6 F 86 20 122/77 06/09/18 06:22 16 06/08/18 23:39 97.8 F 89 18 111/70 96 06/08/18 22:47 97.8 F 89 18 111/70 96 DSM 5 Symptoms Update: Patient is a 72-year-old female with a history of bipolar disorder and dementia, prior psychiatric admissions at [facility] for depression and SA via drug OD, compliant with medications prescribed by her retired psychiatrist, Dr. Field who was transferred from [facility] for treatment of depression, anxiety and increased forgetfulness. She was seen and examined today in her room with mental health worker, patient still has poor personal hygiene. as per staff report pt has some improvements such as pt started to eat better, pt took a shower. pt said that she is doing "little better, but I am anxious, very anxious, I have a headache today, I took Tylenol ", pt said that her son is coming back from [facility] and she feels "very anxious, I don't know what to expect..." (off note pt's son suffers from bipolar disorder and noncompliant with meds). Patient reported that she tolerated medications well, patient reported that her mood is "little better", but appears to be depressed, flat and tearful affect. Patient denied any psychotic symptoms. Collateral's were obtained from patient's daughter, by SW: 06/13/18: Trigger for the pt's depression was pt's son who suffered from bipolar disorder and non-compliant with medications, taking an impulsive trip to [facility] in April 2018. While patient was at [facility], pt's psychotropic medications were stopped, causing patient to become increasingly depressed. Two psychiatric admissions at [facility] in the Summer and Fall 2018 due to overdose on medications. Since that time pt's daughter controls pt's medications. Patient's daughter reports patient has hx of ECT about 15-20 years ago at [facility]. Patient's daughter reports ECT was effective. Pt has NO h/o dementia. Patient psychiatrist retired and patient had difficulties to find one. Patient's daughter is not pt's POA. SW asked if she will be pt's POA if patient is agreeable. So far patient tolerates medications well, no side effects observed or reported, aims 0, no EPS. Diagnostic Results: Bipolar Disorder by history Patient does not have a history of dementia Medication Change: Yes (Seroquel increased yesterday) Medical Record Reviewed: Yes Mental Status Examination - Cognitive Function Orientation: Place Attention: WNL Concentration: Poor Association: Loose Fund of Knowledge: Poor - Mood Mood: Depressed ("I am very depressed and anxious"), Anxious - Affect Affect: Constricted (And tearful) - Speech Speech: Appropriate - Formal Thought Process Formal Thought Process: No Impairment - Suicidal Ideation Suicidal Ideation: No - Homicidal Ideation Homicidal Ideation: No Goal/Treatment Plan - Goal/Treatment Plan Need for Continued Stay: Remain at risks for inpatient hospitalization, Severe depression anxiety, Discharge may exacerbated symptoms, Severe functional impairment Progress Toward Problem(s) and Goals/Treatment Plan: Milieu/structure/supportive therapy consultation for discharge plan and social issues Med management: Seroquel 200 mg twice a day for mood stabilization Ambien 5 mg as needed for insomnia Lexapro 15 mg daily Synthroid 88 mcg daily Drisdol 50,000 units every 7 days Patient refused ECT treatment, but might greatly benefit from it Klonopin 0.5mg twice a day and 0.5 mg at the nighttime for anxiety Family involvement, collaterals appreciated Follow up on labs Will monitor closely Pt was educated about risk/benefits and alternatives of medications, coping st rategies (safety plan, suicide prevention), relapse prevention, importance of follow up with psychiatrist and therapist, stay away from drugs/alcohol/smoking Estimated Date of D/C: 06/19/18
[2018-06-17] MEDS: Pantoprazole 40 mg EC Tab PO SCH (06:53)
[2018-06-17] MEDS: Levothyroxine 88 MCG TAB PO SCH (06:54)
[2018-06-17] MEDS: Insulin Detemir 100 units/ml Vial (Levemir) SC SCH ×2 (10:16→16:40)
[2018-06-17] MEDS: Insulin Lispro (HUMAlog) HIGH Coverage SC SCH ×3 (10:18→16:49)
[2018-06-17] MEDS: Omega-3-Acid Ethyl Esters 1 GM Cap PO SCH ×2 (10:20→16:39)
--- NOTE | 2018-06-17 11:48 | PCM.PYCHPN ---
Psychiatric Progress Note - Psychiatric Progress Note Patient seen today, length of contact: 30 minutes Patient Chief Complaint: "oh doctor, I feel very depressed, I feel nauseated now" Problems Identified/Issues Discussed: ECT education, risk/benefits and alternatives discussed, suicide/ homicide prevention, past psychiatric h/o, current psychiatric symptoms, medical pro blems, risk/benefits and alternatives of medications, medications compliance, coping strategies, substance abuse h/o, relapse prevention, importance of follow up with psychiatrist and therapist, discharge plan. Medical Problems: Patient has multiple medical issues, including Insulin dependent diabetes mellitus Hypothyroidism Hyperlipidemia History of dizziness, syncopal episodes Recent fracture and dislocation of the left fourth finger Diagnostic Results: 06/09/18 07:00 06/09/18 07:00 Lab Results 06/11/18 07:21: POC Glucose (mg/dL) 139 H 06/10/18 20:56: POC Glucose (mg/dL) 178 H 06/10/18 16:15: POC Glucose (mg/dL) 146 H 06/10/18 11:03: POC Glucose (mg/dL) 215 H 06/10/18 08:37: POC Glucose (mg/dL) 101 06/09/18 21:06: POC Glucose (mg/dL) 248 H 06/09/18 17:22: POC Glucose (mg/dL) 141 H 06/09/18 11:17: POC Glucose (mg/dL) 221 H 06/09/18 08:50: Free T4 1.21, Thyroxine (T4) 8.9, Total T3 1.26 06/09/18 08:50: Fructosamine 325 H, Homocysteine Cardiovas 7.6 06/09/18 08:50: 25-OH Vitamin D Total 26.0 L 06/09/18 08:50: Total Bilirubin 0.4, Direct Bilirubin 0.1, AST 30, ALT 55, Alkaline Phosphatase 119, Total Protein 6.8, Albumin 3.6, Globulin 3.2, Albumin/Globulin Ratio 1.1, Homocysteine 8.6, Free T3 pg/mL 2.79 06/09/18 07:00: Hemoglobin A1c 11.1 H 06/09/18 07:00: Sodium 138, Potassium 4.0, Chloride 105, Carbon Dioxide 27, Anion Gap 11, BUN 15, Creatinine 0.5 L, Est GFR ( Amer) > 60, Est GFR (Non-Af Amer) > 60, Random Glucose 178 H, Calcium 9.4, Phosphorus 4.3, Magnesium 1.9, Total Bilirubin 0.4, AST 25, ALT 55, Alkaline Phosphatase 118, Total Protein 6.3, Albumin 3.5, Globulin 2.9, Albumin/Globulin Ratio 1.2, Triglycerides 212 H, Cholesterol 226 H, LDL Cholesterol Direct 137 H, HDL Cholesterol 40 06/09/18 07:00: WBC 6.7, RBC 4.60, Hgb 13.9, Hct 42.2, MCV 91.7, MCH 30.2, MCHC 32.9, RDW 13.8, Plt Count 289, MPV 9.9, Gran % 44.7 L, Lymph % (Auto) 48.1 H, [place] % (Auto) 5.2, Eos % (Auto) 1.6, Baso % (Auto) 0.4, Gran # 3.00, Lymph # (Auto) 3.2, [place] # (Auto) 0.4, Eos # (Auto) 0.1, Baso # (Auto) 0.03 06/09/18 07:00: TSH 3rd Generation 1.22 06/09/18 07:00: RPR Nonreactive Vital Signs Temp Pulse Resp BP Pulse Ox 06/11/18 07:00 98.2 F 80 19 134/86 06/10/18 16:00 78 128/77 06/10/18 07:00 98.2 F 91 H 19 128/72 06/09/18 15:46 93 H 109/64 06/09/18 07:32 98.6 F 86 20 122/77 06/09/18 06:22 16 06/08/18 23:39 97.8 F 89 18 111/70 96 06/08/18 22:47 97.8 F 89 18 111/70 96 DSM 5 Symptoms Update: Patient is a 72-year-old female with a history of bipolar disorder and dementia, prior psychiatric admissions at [facility] for depression and SA via drug OD, compliant with medications prescribed by her retired psychiatrist, Dr. Field who was transferred from [facility] for treatment of depression, anxiety and increased forgetfulness. She was seen and examined today in her room , patient complained of nausea today, she reported that she feels "not good today", patient reported that she feels depressed, anxious, patient presented with flat affect as well as patient was tearful during this principal technical writer interview. This principal technical writer offered Zofran in case of nausea, patient was appreciative. Again this principal technical writer educated patient about ECT procedure but patient adamantly does not want to have it. Patient denied any psychotic symptoms. As per staff patient is isolating herself, not participating in unit activities, very depressed. Collateral's were obtained from patient's daughter, by SW: 06/13/18: Trigger for the pt's depression was pt's son who suffered from bipolar disorder and non-compliant with medications, taking an impulsive trip to [facility] in April 2018. While patient was at [facility], pt's psychotropic medications were stopped, causing patient to become increasingly depressed. Two psychiatric admissions at [facility] in the Summer and Fall 2018 due to overdose on medications. Since that time pt's daughter controls pt's medications. Patient's daughter reports patient has hx of ECT about 15-20 years ago at [facility]. Patient's daughter reports ECT was effective. Pt has NO h/o dementia. Patient psychiatrist retired and patient had difficulties to find one. Patient's daughter is not pt's POA. SW asked if she will be pt's POA if patient is agreeable. So far patient tolerates medications well, no side effects observed or reported, aims 0, no EPS. Diagnostic Results: Bipolar Disorder by history Patient does not have a history of dementia Medication Change: Yes (Seroquel increased yesterday) Medical Record Reviewed: Yes Consults ordered or reviewed: Medical consult appreciated, please see Dr. Downs's/ notes for more detailed information. Dietitian consult was initiated Mental Status Examination - Cognitive Function Orientation: Place Memory: Intact Attention: WNL Concentration: Poor Association: Loose Fund of Knowledge: Poor - Mood Mood: Depressed ("I am very depressed and anxious"), Anxious - Affect Affect: Constricted (And tearful) - Speech Speech: Appropriate - Formal Thought Process Formal Thought Process: No Impairment - Suicidal Ideation Suicidal Ideation: No - Homicidal Ideation Homicidal Ideation: No Goal/Treatment Plan - Goal/Treatment Plan Need for Continued Stay: Remain at risks for inpatient hospitalization, Severe depression anxiety, Discharge may exacerbated symptoms, Severe functional impairment Progress Toward Problem(s) and Goals/Treatment Plan: Milieu/structure/supportive therapy SW consultation for discharge plan and social issues Med management: Seroquel 200 mg twice a day for mood stabilization Ambien 5 mg as needed for insomnia Lexapro 15 mg daily Synthroid 88 mcg daily Drisdol 50,000 units every 7 days Patient refused ECT treatment, but might greatly benefit from it Klonopin 0.5mg twice a day and 0.5 mg at the nighttime for anxiety Family involvement, collaterals appreciated Follow up on labs Will monitor closely Pt was educated about risk/benefits and alternatives of medications, coping strategies (safety plan, suicide prevention), relapse prevention, importance of follow up with psychiatrist and therapist, stay away from drugs/alcohol/smoking Estimated Date of D/C: 06/19/18
--- NOTE | 2018-06-17 20:44 | PN ---
DATE: 06/17/2018 SUBJECTIVE: The patient is seen in room 519, bed 1. The patient is seen lying in the bed. The patient states that she is less anxious and slept well. Overnight, nurse's notes were reviewed. The patient's appetite has improved in the last 24 to 48 hours. The patient was found to be more alert, awake, oriented x3 and according to the nurses' notes, the patient has been walking around on the unit independently. The patient slept throughout the night. PHYSICAL EXAMINATION: VITAL SIGNS: T-max 97.7, pulse 82, blood pressure 132/79, respiration 20. HEENT: Head examination: Normocephalic, atraumatic. HEENT examination shows pinkish conjunctivae, anicteric sclerae, no oropharyngeal lesion. NECK: No neck rigidity. CHEST: Kyphosis. LUNGS: Show no audible crackle, rales or wheezing. CARDIOVASCULAR: S1 and S2, regular rhythm. ABDOMEN: Soft. Positive bowel sounds. No palpable hepatosplenomegaly. GENITALIA: Female. RECTAL: Deferred. EXTREMITIES: Show no pitting edema, no calf tenderness, no Homans' sign. NEUROLOGIC: The patient is alert, awake, responsive. She is able to move upper and lower extremities without assistance. Gait examination is not tested. Vascular examination, palpable pulses. Plantars are downward. DTRs at 2+. Cranial nerves II through XII limited. IMPRESSION AND PLAN: 1. Acute exacerbation of anxiety and depression. 2. History of bipolar disorder. 3. Insulin-requiring diabetes mellitus. 4. Hypothyroidism. 5. Hyperlipidemia. 6. Left fourth finger dislocation and fracture. 7. History of dementia. 8. History of suicidal ideation, suicidal attempt. 9. Insomnia. 10. Vertigo and dizziness. 11. Hypovitaminosis D. 12. Hypertriglyceridemia. The patient is to be continued on above therapeutic intervention as ordered. The patient was cleared for discharge by physical therapy. The patient's current medications: The patient is on Ambien 5 mg at bedtime as needed, Antivert 25 mg every 8 hours as needed, Drisdol 50,000 units weekly, Humalog high-dose sliding scale coverage before meals, Klonopin 0.5 mg twice a day, Klonopin 0.5 mg at bedtime, Levemir 20 units before meals breakfast and dinner, Lexapro 15 mg daily, Lipitor 40 mg daily, Lovaza 1 g twice a day, Protonix 40 mg daily, Seroquel 200 mg in the morning and at bedtime, Synthroid 88 mcg daily, Tylenol as needed, Zofran 4 mg by mouth every 8 hours as needed. At present, the patient will be continued to be followed up as long the patient is on psychiatry floor. Dictated and electronically signed, not read. Tim Gonzalez MD
[2018-06-18] MEDS: Pantoprazole 40 mg EC Tab PO SCH (06:25)
[2018-06-18] MEDS: Levothyroxine 88 MCG TAB PO SCH (06:25)
[2018-06-18] MEDS: Omega-3-Acid Ethyl Esters 1 GM Cap PO SCH ×2 (09:23→16:43)
--- NOTE | 2018-06-18 09:23 | PN ---
DATE: 06/16/2018 SUBJECTIVE: The patient is in room 519, bed 1. Overnight nurse's notes were reviewed. The patient is always being has confined herself to the bed and mostly seen lying in the bed. The patient also has poor personal hygiene. Overnight nurse's notes were reviewed. OBJECTIVE: VITAL SIGNS: T-max 98.4, heart rate 84, respirations 18, blood pressure 126/81. Fingerstick blood sugar was noted to be in low 200s. HEENT: Head is normocephalic . Eyes; shows pink conjunctivae. Anicteric sclerae, dry oral mucosa. NECK: No neck rigidity. CHEST: Kyphosis. LUNGS: Shows no audible crackle, rales or wheezing. CARDIOVASCULAR: S1, S2, regular rhythm. ABDOMEN: Soft. Positive bowel sounds. No palpable hepatosplenomegaly noted. GENITALIA: Female. RECTAL: Deferred. EXTREMITIES: Shows no pitting edema, no calf tenderness, no Homans' sign. NEUROLOGIC: The patient is alert, awake, responsive, is able to move upper and lower extremity without assistance. Gait examination is not tested. MUSCULOSKELETAL: Examination is as per the body mass index. Cranial nerve examination is limited. VASCULAR: Palpable pulses. DIAGNOSTICS: None from today. Fingerstick blood sugar reviewed. IMPRESSION: 1. Acute exacerbation of anxiety and depression. 2. History of acute exacerbation of bipolar disorder. 3. Poor personal hygiene. 4. Hypertension. 5. Hyperlipidemia, hypertriglyceridemia. 6. Hypothyroidism. 7. Hypovitaminosis D. 8. Suicidal ideation, suicidal attempt. 9. History of electroconvulsive therapy. 10. Anxiety disorder. 11. Insomnia. PLAN: At this time, the patient is to be continued on the medications as per the MAR of today. The patient will be continued on the medications as per the MAR of today which was reviewed. The patient is to be continued on the medications and therapeutic intervention as per Psychiatry. The patient will be monitored from medical perspective regarding her diabetes, hypertension, hyperlipidemia, hypertriglyceridemia. The patient's medications will be modified adjusted, titrated, or optimized depending upon the patient's subjective, objective data. The patient has been encouraged to be out of bed to chair, ambulate and be more active and participating in activities on Psychiatry floor. The patient will be continued on the medications as per the MAR of today which was reviewed. Dictated and electronically signed, not read. Tim Gonzalez MD
[2018-06-18] MEDS: Insulin Lispro (HUMAlog) HIGH Coverage SC SCH ×3 (09:24→16:46)
[2018-06-18] MEDS: Insulin Detemir 100 units/ml Vial (Levemir) SC SCH ×3 (10:10→17:36)
[2018-06-18] MEDS: Ergocalciferol 50,000 Intl Units Cap PO SCH (12:38)
--- NOTE | 2018-06-18 15:05 | PCM.PYCHPN ---
Psychiatric Progress Note - Psychiatric Progress Note Patient seen today, length of contact: 30 minutes Patient Chief Complaint: "oh doctor, I feel very depressed, I don't feel good" Problems Identified/Issues Discussed: ECT education, risk/benefits and alternatives discussed, suicide/ homicide prevention, past psychiatric h/o, current psychiatric symptoms, medical proble ms, risk/benefits and alternatives of medications, medications compliance, coping strategies, substance abuse h/o, relapse prevention, importance of follow up with psychiatrist and therapist, discharge plan. Medical Problems: Patient has multiple medical issues, including Insulin dependent diabetes mellitus Hypothyroidism Hyperlipidemia History of dizziness, syncopal episodes Recent fracture and dislocation of the left fourth finger Diagnostic Results: 06/09/18 07:00 06/09/18 07:00 Lab Results 06/11/18 07:21: POC Glucose (mg/dL) 139 H 06/10/18 20:56: POC Glucose (mg/dL) 178 H 06/10/18 16:15: POC Glucose (mg/dL) 146 H 06/10/18 11:03: POC Glucose (mg/dL) 215 H 06/10/18 08:37: POC Glucose (mg/dL) 101 06/09/18 21:06: POC Glucose (mg/dL) 248 H 06/09/18 17:22: POC Glucose (mg/dL) 141 H 06/09/18 11:17: POC Glucose (mg/dL) 221 H 06/09/18 08:50: Free T4 1.21, Thyroxine (T4) 8.9, Total T3 1.26 06/09/18 08:50: Fructosamine 325 H, Homocysteine Cardiovas 7.6 06/09/18 08:50: 25-OH Vitamin D Total 26.0 L 06/09/18 08:50: Total Bilirubin 0.4, Direct Bilirubin 0.1, AST 30, ALT 55, Alkaline Phosphatase 119, Total Protein 6.8, Albumin 3.6, Globulin 3.2, Albumin/Globulin Ratio 1.1, Homocysteine 8.6, Free T3 pg/mL 2.79 06/09/18 07:00: Hemoglobin A1c 11.1 H 06/09/18 07:00: Sodium 138, Potassium 4.0, Chloride 105, Carbon Dioxide 27, Anion Gap 11, BUN 15, Creatinine 0.5 L, Est GFR ( Amer) > 60, Est GFR (Non-Af Amer) > 60, Random Glucose 178 H, Calcium 9.4, Phosphorus 4.3, Magnesium 1.9, Total Bilirubin 0.4, AST 25, ALT 55, Alkaline Phosphatase 118, Total Protein 6.3, Albumin 3.5, Globulin 2.9, Albumin/Globulin Ratio 1.2, Triglycerides 212 H, Cholesterol 226 H, LDL Cholesterol Direct 137 H, HDL Cholesterol 40 06/09/18 07:00: WBC 6.7, RBC 4.60, Hgb 13.9, Hct 42.2, MCV 91.7, MCH 30.2, MCHC 32.9, RDW 13.8, Plt Count 289, MPV 9.9, Gran % 44.7 L, Lymph % (Auto) 48.1 H, [place] % (Auto) 5.2, Eos % (Auto) 1.6, Baso % (Auto) 0.4, Gran # 3.00, Lymph # (Auto) 3.2, [place] # (Auto) 0.4, Eos # (Auto) 0.1, Baso # (Auto) 0.03 06/09/18 07:00: TSH 3rd Generation 1.22 06/09/18 07:00: RPR Nonreactive Vital Signs Temp Pulse Resp BP Pulse Ox 06/11/18 07:00 98.2 F 80 19 134/86 06/10/18 16:00 78 128/77 06/10/18 07:00 98.2 F 91 H 19 128/72 06/09/18 15:46 93 H 109/64 06/09/18 07:32 98.6 F 86 20 122/77 06/09/18 06:22 16 06/08/18 23:39 97.8 F 89 18 111/70 96 06/08/18 22:47 97.8 F 89 18 111/70 96 DSM 5 Symptoms Update: Patient is a 72-year-old female with a history of bipolar disorder and dementia, prior psychiatric admissions at [facility] for depression and SA via drug OD, compliant with medications prescribed by her retired psychiatrist, Dr. Field who was transferred from [facility] for treatment of depression, anxiety and increased forgetfulness. She was seen and examined today in her room , patient presented to be engaged, depressed, tearful. Patient is not participating in unit activities, from this television writer impression patient might benefit from ECT treatment but patient feels reluctant about that plan. Family needs to be involved, patient daughter will be contacted. Patient denied any psychotic symptoms. As per staff patient is isolating herself, not participating in unit activities, very depressed. Collateral's were obtained from patient's daughter, by SW: 06/13/18: Trigger for the pt's depression was pt's son who suffered from bipolar disorder and non-compliant with medications, taking an impulsive trip to [facility] in April 2018. While patient was at [facility], pt's psychotropic medications were stopped, causing patient to become increasingly depressed. Two psychiatric admissions at [facility] in the Summer and Fall 2018 due to overdose on medications. Since that time pt's daughter controls pt's medications. Patient's daughter reports patient has hx of ECT about 15-20 years ago at [facility]. Patient's daughter reports ECT was effective. Pt has NO h/o dementia. Patient psychiatrist retired and patient had difficulties to find one. Patient's daughter is not pt's POA. SW asked if she will be pt's POA if patient is agreeable. So far patient tolerates medications well, no side effects observed or reported, aims 0, no EPS. Diagnostic Results: Bipolar Disorder by history Patient does not have a history of dementia Medication Change: Yes (20mg Lexapro ) Medical Record Reviewed: Yes Consults ordered or reviewed: Medical consult appreciated, please see Dr. Downs's/ notes for more detailed information. Dietitian consult was initiated Mental Status Examination - Cognitive Function Orientation: Place Memory: Intact Attention: WNL Concentration: Poor Association: Loose Fund of Knowledge: Poor - Mood Mood: Depressed ("I am very depressed and anxious"), Anxious - Affect Affect: Constricted (And tearful) - Speech Speech: Appropriate - Formal Thought Process Formal Thought Process: No Impairment - Suicidal Ideation Suicidal Ideation: No - Homicidal Ideation Homicidal Ideation: No Goal/Treatment Plan - Goal/Treatment Plan Need for Continued Stay: Remain at risks for inpatient hospitalization, Severe depression anxiety, Discharge may exacerbated symptoms, Severe functional impairment Progress Toward Problem(s) and Goals/Treatment Plan: Milieu/structure/supportive therapy SW consultation for discharge plan and social issues Med management: Seroquel 200 mg twice a day for mood stabilization Ambien 5 mg as needed for insomnia Lexapro 15 mg daily Synthroid 88 mcg daily Drisdol 50,000 units every 7 days Patient refused ECT treatment, but might greatly benefit from it Klonopin 0.5mg twice a day and 0.5 mg at the nighttime for anxiety Family involvement, collaterals appreciated Follow up on labs Will monitor closely Pt was educated about risk/benefits and alternatives of medications, coping strategies (safety plan, suicide prevention), relapse prevention, importance of follow up with psychiatrist and therapist, stay away from drugs/alcohol/smoking Estimated Date of D/C: 06/19/18
--- NOTE | 2018-06-18 23:39 | PN ---
DATE: 06/18/2018 SUBJECTIVE: The patient is seen again lying in bed in room 519, bed 1. The patient is comfortable. The patient states that she is feeling better, and mood was suicidal, homicidal ideation. Denies any chest pain. Denies nausea, vomiting, diarrhea. The patient had episodic feelings of depression. PHYSICAL EXAMINATION: GENERAL: The patient is seen lying in the bed. VITAL SIGNS: T-max 98.1, heart rate 86, blood pressure 133/81, respiration 20. HEENT: Head is normocephalic, atraumatic. HEENT examination shows pinkish conjunctivae. Anicteric sclerae. No oropharyngeal lesion. NECK: No neck rigidity. CHEST: Kyphosis. CARDIOPULMONARY: S1, S2, regular rhythm. LUNGS: Shows no audible crackle, rales or wheezing. ABDOMEN: Soft. Positive bowel sounds. GENITALIA: Female. RECTAL: Deferred. EXTREMITIES: Shows no pitting edema. No calf tenderness. No Homans' sign. NEUROLOGIC: The patient is alert, awake, oriented x3. She is able to move upper and lower extremity without assistance. Gait examination is not tested. Fingerstick blood sugar not documents since 06/15/2018. MUSCULOSKELETAL: Shows a body mass index of 24. DIAGNOSTICS: None. IMPRESSION: 1. Acute exacerbation of anxiety and depression. 2. Bipolar disorder. 3. Questionable history of dementia. 4. Hypertension. 5. Insulin-requiring diabetes mellitus. 6. Hypertriglyceridemia, hypercholesteremia with elevated LDL. 7. Uncontrolled insulin-requiring diabetes mellitus with hemoglobin A1c of 11.1 and fructosamine of 325. 8. Hypovitaminosis D. 9. Insomnia. 10. Dizziness. 11. Depression. 12. Hyperlipidemia. 13. Hypothyroidism. PLAN: At this time, the patient is to be continued on Psychiatry floor on following medications, Ambien 5 mg at bedtime p.r.n., Antivert 25 mg p.o. every 8 hours p.r.n., Drisdol 50,000 units weekly, Humalog high-dose sliding scale coverage, Klonopin 0.5 mg twice a day, Klonopin 0.5 mg at bedtime, Levemir 20 units a.c. breakfast and dinner, Lexapro 20 mg daily, Lipitor 40 mg daily, Lovaza 1 g twice a day, Protonix 40 mg daily, Seroquel 200 mg a.m. and at bedtime, Synthroid 88 mcg daily, Tylenol 325 mg every 6 p.r.n., Zofran 4 mg p.o. every 8 p.r.n. At present, the patient will be continued on the psychiatric floor till the patient is admitted and continued to be on the Psychiatry Service. The patient's further management will be dependent upon the patient's clinical condition, hemodynamic status and as per the patient response to therapeutic intervention, as per the patient's diagnostic test results, and as per recommendation by all the physician involved in the care of the patient. Dictated and electronically signed, not read. Tim Gonzalez MD
[2018-06-19] MEDS: Levothyroxine 88 MCG TAB PO SCH (07:06)
[2018-06-19] MEDS: Pantoprazole 40 mg EC Tab PO SCH (07:06)
[2018-06-19] MEDS ORDERED: Dextrose 50% SYRINGE Inj (50 ml) IV PRN (07:45)
[2018-06-19] MEDS: Insulin Detemir 100 units/ml Vial (Levemir) SC SCH ×2 (10:08→17:29)
[2018-06-19] MEDS: Omega-3-Acid Ethyl Esters 1 GM Cap PO SCH ×2 (10:10→18:02)
--- NOTE | 2018-06-19 11:54 | PCM.PYCHPN ---
Psychiatric Progress Note - Psychiatric Progress Note Patient seen today, length of contact: 30 minutes Patient Chief Complaint: "doctor, I am not feeling good, I am very depressed" Problems Identified/Issues Discussed: ECT education, risk/benefits and alternatives discussed, suicide/ homicide prevention, past psychiatric h/o, current psychiatric symptoms, medical problem s, risk/benefits and alternatives of medications, medications compliance, coping strategies, substance abuse h/o, relapse prevention, importance of follow up with psychiatrist and therapist, discharge plan. Medical Problems: Patient has multiple medical issues, including Insulin dependent diabetes mellitus Hypothyroidism Hyperlipidemia History of dizziness, syncopal episodes Recent fracture and dislocation of the left fourth finger Diagnostic Results: 06/09/18 07:00 06/09/18 07:00 Lab Results 06/11/18 07:21: POC Glucose (mg/dL) 139 H 06/10/18 20:56: POC Glucose (mg/dL) 178 H 06/10/18 16:15: POC Glucose (mg/dL) 146 H 06/10/18 11:03: POC Glucose (mg/dL) 215 H 06/10/18 08:37: POC Glucose (mg/dL) 101 06/09/18 21:06: POC Glucose (mg/dL) 248 H 06/09/18 17:22: POC Glucose (mg/dL) 141 H 06/09/18 11:17: POC Glucose (mg/dL) 221 H 06/09/18 08:50: Free T4 1.21, Thyroxine (T4) 8.9, Total T3 1.26 06/09/18 08:50: Fructosamine 325 H, Homocysteine Cardiovas 7.6 06/09/18 08:50: 25-OH Vitamin D Total 26.0 L 06/09/18 08:50: Total Bilirubin 0.4, Direct Bilirubin 0.1, AST 30, ALT 55, Alkaline Phosphatase 119, Total Protein 6.8, Albumin 3.6, Globulin 3.2, Albumin/Globulin Ratio 1.1, Homocysteine 8.6, Free T3 pg/mL 2.79 06/09/18 07:00: Hemoglobin A1c 11.1 H 06/09/18 07:00: Sodium 138, Potassium 4.0, Chloride 105, Carbon Dioxide 27, Anion Gap 11, BUN 15, Creatinine 0.5 L, Est GFR ( Amer) > 60, Est GFR (Non-Af Amer) > 60, Random Glucose 178 H, Calcium 9.4, Phosphorus 4.3, Magnesium 1.9, Total Bilirubin 0.4, AST 25, ALT 55, Alkaline Phosphatase 118, Total Protein 6.3, Albumin 3.5, Globulin 2.9, Albumin/Globulin Ratio 1.2, Triglycerides 212 H, Cholesterol 226 H, LDL Cholesterol Direct 137 H, HDL Cholesterol 40 06/09/18 07:00: WBC 6.7, RBC 4.60, Hgb 13.9, Hct 42.2, MCV 91.7, MCH 30.2, MCHC 32.9, RDW 13.8, Plt Count 289, MPV 9.9, Gran % 44.7 L, Lymph % (Auto) 48.1 H, [place] % (Auto) 5.2, Eos % (Auto) 1.6, Baso % (Auto) 0.4, Gran # 3.00, Lymph # (Auto) 3.2, [place] # (Auto) 0.4, Eos # (Auto) 0.1, Baso # (Auto) 0.03 06/09/18 07:00: TSH 3rd Generation 1.22 06/09/18 07:00: RPR Nonreactive Vital Signs Temp Pulse Resp BP Pulse Ox 06/11/18 07:00 98.2 F 80 19 134/86 06/10/18 16:00 78 128/77 06/10/18 07:00 98.2 F 91 H 19 128/72 06/09/18 15:46 93 H 109/64 06/09/18 07:32 98.6 F 86 20 122/77 06/09/18 06:22 16 06/08/18 23:39 97.8 F 89 18 111/70 96 06/08/18 22:47 97.8 F 89 18 111/70 96 Temp Pulse Resp BP Pulse Ox 97.8 F 89 19 116/68 96 06/19/18 07:00 06/19/18 07:00 06/19/18 07:00 06/19/18 07:00 06/08/18 23:39 Labs ordered for tomorrow, UA DSM 5 Symptoms Update: Patient is a 72-year-old female with a history of bipolar disorder and dementia, prior psychiatric admissions at [facility] for depression and SA via drug OD, compliant with medications prescribed by her retired psychiatrist, Dr. Field who was transferred from [facility] for treatment of depression, anxiety and increased forgetfulness. She was seen and examined today next to the nursing station, patient presented with acceptable personal hygiene but has uncombed/smith hair, affect was anxious/depressed/tearful. Patient reported that she is not feeling any better, reported feeling hopeless/helpless, worthless, guilty, passive wish to be . This telegraphic typewriter operator chief repeating herself that ECT was offered but patient feel reluctant about it. This telegraphic typewriter operator chief contacted patient daughter John today 06/19/2018, John "we are all against ECT treatment", John reported that Celexa was not effective in the past, as per daughter if patient is only on antidepressant she will become manic. This telegraphic typewriter operator chief educated daughter about treatment options, this telegraphic typewriter operator chief offered Effexor, SNRI, because SSRI were not effective in the past. Pt's daughter and patient herself agreed with the treatment plan. Patient denied any psychotic symptoms. As per staff patient is isolating herself, not participating in unit activities, very depressed. Collateral's were obtained from patient's daughter, by SW: 06/13/18: Trigger for the pt's depression was pt's son who suffered from bipolar disorder and non-compliant with medications, taking an impulsive trip to [facility] in April 2018. While patient was at [facility], pt's psychotropic medications were stopped, causing patient to become increasingly depressed. Two psychiatric admissions at [facility] in the Summer and Fall 2018 due to overdose on medications. Since that time pt's daughter controls pt's medications. Patient's daughter reports patient has hx of ECT about 15-20 years ago at [facility]. Patient's daughter reports ECT was effective. Pt has NO h/o dementia. Patient psychiatrist retired and patient had difficulties to find one. Patient's daughter is not pt's POA. SW asked if she will be pt's POA if patient is agreeable. So far patient tolerates medications well, no side effects observed or reported, aims 0, no EPS. Diagnostic Results: Bipolar Disorder by history Patient does not have a history of dementia Medication Change: Yes (taper down lexapro, effexor started) Medical Record Reviewed: Yes Consults ordered or reviewed: Medical consult appreciated, please see Dr. Downs's/ notes for more detailed information. Dietitian consult was initiated Mental Status Examination - Cognitive Function Orientation: Place Memory: Intact Attention: WNL Concentration: Poor Association: Loose Fund of Knowledge: Poor - Mood Mood: Depressed ("I am very depressed and anxious"), Anxious - Affect Affect: Constricted (And tearful) - Speech Speech: Appropriate - Formal Thought Process Formal Thought Process: No Impairment - Suicidal Ideation Suicidal Ideation: No - Homicidal Ideation Homicidal Ideation: No Goal/Treatment Plan - Goal/Treatment Plan Need for Continued Stay: Remain at risks for inpatient hospitalization, Severe depression anxiety, Discharge may exacerbated symptoms, Severe functional impairment Progress Toward Problem(s) and Goals/Treatment Plan: Milieu/structure/supportive therapy SW consultation for discharge plan and social issues Med management: Seroquel 200 mg twice a day for mood stabilization Ambien 5 mg as needed for insomnia Lexapro will start weaning off with the plan to d/c it Effexor 37.5mg po daily for depression/anxiety initiated 06/19/2018 with a plan to titrated up Synthroid 88 mcg daily Drisdol 50,000 units every 7 days Patient refused ECT treatment, but might greatly benefit from it Klonopin 0.5mg twice a day and 0.5 mg at the nighttime for anxiety Family involvement, collaterals appreciated Follow up on labs Will monitor closely Pt was educated about risk/benefits and alternatives of medications, coping strategies (safety plan, suicide prevention), relapse prevention, importance of follow up with psychiatrist and therapist, stay away from drugs/alcohol/smoking Estimated Date of D/C: 06/22/18
[2018-06-19] MEDS: Insulin Lispro (HUMAlog) HIGH Coverage SC SCH ×3 (12:46→21:25)
--- NOTE | 2018-06-19 22:44 | PN ---
DATE: 06/19/2018 SUBJECTIVE: The patient is seen in room 519, bed 1. The patient is seen lying in the bed. Overnight nurse's notes were reviewed. The patient was still having some depression. The patient still tries to isolate herself in the room most of the time during the day. The patient was seen, examined, lying in the bed. The patient appears to be alert, awake, responsive. The patient appears to be depressed. PHYSICAL EXAMINATION: VITAL SIGNS: T-max 97.8, pulse 89, respiration 19, blood pressure 116/68. HEENT: Head is normocephalic, atraumatic. HEENT examination shows pinkish conjunctivae. Anicteric sclerae. No oropharyngeal lesion. NECK: No neck rigidity. CHEST: Kyphosis. CARDIOPULMONARY: S1, S2, regular rhythm. No audible murmur, gallop or rub. LUNGS: Shows no audible crackle, rales or wheezing. ABDOMEN: Soft. Positive bowel sound. No palpable hepatosplenomegaly. GENITALIA: Female. RECTAL: Deferred. EXTREMITIES: Shows no pitting edema. No calf tenderness. No Judy's signs. NEUROLOGIC: The patient is alert, awake, responsive. She is able to move upper and lower extremity without assistance. Gait examination is not tested. VASCULAR: Palpable pulses. PSYCHIATRIC: As per the psychiatrist evaluation. IMPRESSION: 1. Slow resolving acute exacerbation of for anxiety and depression. 2. Insulin-requiring diabetes mellitus. 3. Hypertension. 4. Hypothyroidism. 5. Hyperlipidemia. 6. Vertigo. 7. Left fourth finger fracture. 8. History of bipolar disorder and questionable dementia. 9. History of suicidal attempts, suicidal ideation, history of memory dysfunction, history of anxiety, depression, history of electroconvulsive therapy. 10. Uncontrolled insulin-requiring diabetes mellitus with hemoglobin A1c of 11.1 and fructosamine of 325. 11. Hypertriglyceridemia, hyperlipidemia with elevated LDL. 12. Hypovitaminosis D. 13. Questionable behavioral disorder. 14. Aggressive behavior disorder. 15. Acute exacerbation of bipolar disorder. 16. Insomnia. 17. Vertigo. 18. Depression. 19. Hypertriglyceridemia. CURRENT MEDICATIONS: Ambien 5 mg at bedtime p.r.n., Antivert 25 mg every 8 p.r.n., hypoglycemia protocol, Drisdol 50,000 units weekly, Effexor 37.5 mg daily, Humalog high-dose sliding scale coverage a.c. and at bedtime, Klonopin 0.5 mg b.i.d. and Klonopin 0.5 mg at bedtime, Levemir 20 units a.c. breakfast, dinner, Lexapro 10 mg daily, Lipitor 40 mg daily, Lovaza 1 g twice a day, Protonix 40 mg daily, Seroquel 200 mg a.m. and at bedtime, Synthroid 88 mcg daily Tylenol p.r.n., Zofran 4 mg p.o. every 8 p.r.n. PLAN: The patient's fingerstick blood sugar 219, 129 109, 166, 140. The patient will be continued on the above therapeutic intervention. The patient's tentative discharge date as per the Psychiatry is 05/22/2018 as the patient is undergoing titration therapy from psychotropic medication. Dictated and electronically signed, not read. Tim Gonzalez MD
[2018-06-20] MEDS: Levothyroxine 88 MCG TAB PO SCH (06:07)
[2018-06-20] MEDS: Pantoprazole 40 mg EC Tab PO SCH (06:07)
[2018-06-20 08:19] LABS: BASO # 0.03 K/mm3 (0.0-2.0); BASO % 0.6 % (0.0-3.0); EOS % 0.6 % (1.5-5.0); HEMOGLOBIN 13.3 g/dL (12.0-16.0); LYMPH # 2.6 (1.2-3.4); LYMPH % 53.8 % (22.0-35.0); MEAN CELL VOLUME 92.1 fl (80.0-105.0); MEAN CORPUSCULAR HEMOGLOBIN 29.3 pg (25.0-35.0); MEAN CORPUSCULAR HGB CONC 31.8 g/dl (31.0-37.0); MONO # 0.8 (0.1-0.6); MONO % 15.5 % (1.0-6.0); RBC 4.54 10^6/uL (3.5-6.1); RED CELL DISTRIBUTION WIDTH 13.4 % (11.5-14.5); WHITE BLOOD COUNT 4.8 10^3/uL (4.5-11.0)
[2018-06-20 08:49] LABS: ALB/GLOB RATIO 1.2 (1.1-1.8); ALBUMIN 3.4 g/dL (3.0-4.8); ALT/SGPT 29 U/L (7-56); AST/SGOT 20 U/L (14-36); BLOOD UREA NITROGEN 15 mg/dL (7-21); CALCIUM 8.8 mg/dL (8.4-10.5); GFR NON-AFRICAN AMERICAN > 60
[2018-06-20] MEDS: Insulin Lispro (HUMAlog) HIGH Coverage SC SCH ×4 (09:45→21:31)
[2018-06-20] MEDS: Omega-3-Acid Ethyl Esters 1 GM Cap PO SCH ×2 (09:49→17:09)
[2018-06-20] MEDS: Insulin Detemir 100 units/ml Vial (Levemir) SC SCH ×2 (09:50→16:38)
--- NOTE | 2018-06-20 11:51 | PN ---
DATE: 06/20/2018 SUBJECTIVE: The patient is in room 519, bed 1. Overnight nurse's notes were reviewed. According to the nurse's note, the patient in the last 12 to 24 hours was out of bed, socializing in the dayroom and on the floor. The patient still appears to be depressed. PHYSICAL EXAMINATION: VITAL SIGNS: T-max 97.4, heart rate 85, blood pressure 114/65, respirations 20. HEENT: Head: Normocephalic, atraumatic. HEENT examination shows pink conjunctivae. Anicteric sclerae. No oropharyngeal lesion. No neck rigidity. CHEST: Kyphosis. LUNGS: No audible crackle, rales or wheezing. CARDIOVASCULAR: S1, S2, regular rhythm. Questionable soft systolic murmur at left sternal border, right second intercostal space, left second intercostal space. ABDOMEN: Soft. Positive bowel sounds. No palpable hepatosplenomegaly. GENITALIA: Female. RECTAL: Deferred. EXTREMITIES: No pitting edema, no calf tenderness, no Homans' sign. NEUROLOGIC: The patient is alert, awake, responsive, is able to move upper and lower extremity without assistance. Gait examination is not tested. MUSCULOSKELETAL: Examination is as per the body mass index. Cranial nerves II through XII intact and limited. PSYCHIATRIC: Examination is positive for depression and anxiety. DIAGNOSTICS: From 06/20/2018, CBC is available. Chemistry is still pending and in process. WBC 4.8, hemoglobin and hematocrit 13.3 and 41, and platelet 258. CMP and LFTs pending. IMPRESSION: 1. Acute exacerbation of anxiety and depression. 2. History of bipolar disorder. 3. History of suicidal ideation and suicidal attempt. 4. Hypertension. At present normotensive. 5. Insulin-requiring diabetes mellitus, uncontrolled with hemoglobin A1c of greater than 11 and hyperfructosemia. 6. Hypertriglyceridemia and hypercholesterolemia. 7. Hypovitaminosis D. 8. Deconditioning. 9. Questionable history of dementia and memory dysfunction and forgetfulness. 10. Anxiety disorder. PLAN: At this time, the patient will be continued on Psychiatry floor for further psychiatry treatment. In addition, the patient will be continued on all the medications as per the MAR of today which was reviewed. The patient has been ordered physical therapy, occupational therapy, ambulation therapy. The patient's chemistry will be reviewed when available and if the patient's further lab data needs intervention, orders will be entered and the patient will be continued on the medications as per the MAR of today. Dictated and electronically signed, not read. Tim Gonzalez MD
--- NOTE | 2018-06-20 12:37 | PCM.PYCHPN ---
Psychiatric Progress Note - Psychiatric Progress Note Patient seen today, length of contact: 30 minutes Problems Identified/Issues Discussed: History of Present Illness and Precipitating Events: Patient is a 72-year-old female with a history of bipolar disorder and dementia, prior psychiatric admissions at [facility] for depression and SA via drug OD, compliant with medications prescribed by her retired psychiatrist, Dr. Field who was transferred from [facility] for treatment of depression, anxiety and increased forgetfulness. I reviewed [facility] records which indicate the patient presented to their ER on June 02, 2018 with complaints of dizziness . She was treated for a fracture/dislocation of the left fourth finger and was to instruct a follow up with a hand specialist in a couple days. She was also treated for uncontrolled diabetes and evaluated for dizziness and near syncope. She was noted to somatic, depressed and anxious despite reported compliance with outpatient psychiatric medications of Seroquel 400 HS, Ambien 10 HS and klonopin 0.5 mg pi TID. Apparently patient was very worried because her psychiatrist, Dr. Field recently retired and she didn't know how to obtain another psychiatrist. I met with patient at bedside and although she is cooperative she presents as a poor and vague historian. Patient indicates awareness as she is at [facility] however she has no idea what month or year it is. She reports that she is profoundly depressed and anxious however denies any perceptual disturbance or SI. Presently she denies any discomfort pain or side effects of her medication and has been in fair behavior control since her transfer from [facility] PSYCHIATRIC HISTORY History of bipolar disorder prior psychiatric admissions at [facility] for depression and SA via drug OD, Compliant with medications prescribed by her retired psychiatrist, Dr. Field-- Seroquel 400 HS, Ambien 10 HS and klonopin 0.5 mg pi TID SOCIAL HISTORY Born and raised in [place]. Patient has 5 children and reportedly resides in by herself. PROGRESS NOTE 06/20/18 I reviewed recent notes and met with patient at bedside (as well as during treatment team meeting later on in the morning). She is familiar to this provider from our admission interview last weekend though she doesn't remember me. Patient is oriented x3 and remains cooperative and responsive. She seems more oriented than our prior interviews though appearance is unkempt. Patient reports that she continues to be depressed. She is aware of the therapeutic latency of her medications and denies any hopelessness or SI. Indicates that her mood is improving a little since admission. She still feels anxious, complains of restless sleep and poor appetite (though nursing reports her appetite appears to be good). p Patient continues to deny any perceptual disturbance or SI. Presently she denies any discomfort pain or side effects of her medication and has been in good behavioral control. Staff note that patient has been quiet and still generally keeps to herself though appears brighter and a little more spontaneous since admission. Diagnostic Results: Bipolar Disorder by history Medication Change: Yes (Lexapro decreased to 5 mg ) Medical Record Reviewed: Yes Mental Status Examination - Cognitive Function Orientation: Place Memory: Intact Attention: WNL Concentration: Poor Association: Loose Fund of Knowledge: Poor - Mood Mood: Depressed ("I am still depressed and anxious"), Anxious - Affect Affect: Constricted (And tearful) - Speech Speech: Appropriate - Formal Thought Process Formal Thought Process: No Impairment - Suicidal Ideation Suicidal Ideation: No - Homicidal Ideation Homicidal Ideation: No Goal/Treatment Plan - Goal/Treatment Plan Need for Continued Stay: Remain at risks for inpatient hospitalization, Severe depression anxiety, Discharge may exacerbated symptoms, Severe functional impairment Progress Toward Problem(s) and Goals/Treatment Plan: * group, milieu and supportive tx * Seroquel 200 mg twice a day for mood stabilization * Ambien 5 mg as needed for insomnia * Lexapro decreased to 5 mg with plan to ultimately discontinue it in favor of trial with Effexor. Effexor 37.5mg po daily for depression/anxiety initiated 06/19/2018 * Klonopin 0.5mg twice a day and 0.5 mg at the nighttime for anxiety * Patient refused ECT treatment, but might greatly benefit from it * vitals reviewed and noted below: Selected Entries 06/19/18 06/19/18 07:00 16:00 Temperature 97.8 F Pulse Rate 89 80 Respiratory 19 Rate Blood Pressure 116/68 108/66 * consultation for discharge plan and social issues * New lab results noted below: Laboratory Results - last 24 hr 06/20/18 06/20/18 08:00 08:00 WBC 4.8 D RBC 4.54 Hgb 13.3 Hct 41.8 MCV 92.1 MCH 29.3 MCHC 31.8 RDW 13.4 Plt Count 258 MPV 10.0 Neut % (Auto) 29.5 L Lymph % (Auto) 53.8 H [place] % (Auto) 15.5 H Eos % (Auto) 0.6 L Baso % (Auto) 0.6 Lymph # (Auto) 2.6 [place] # (Auto) 0.8 H Eos # (Auto) 0.0 Baso # (Auto) 0.03 Absolute Neuts (auto) 1.42 Sodium 139 Potassium 3.7 Chloride 104 Carbon Dioxide 31 Anion Gap 8 L BUN 15 Creatinine 0.6 L Est GFR ( Amer) > 60 Est GFR (Non-Af Amer) > 60 Random Glucose 137 H Calcium 8.8 Total Bilirubin 0.3 AST 20 ALT 29 Alkaline Phosphatase 80 Total Protein 6.3 Albumin 3.4 Globulin 2.9 Albumin/Globulin Ratio 1.2 * [facility] admission labs reviewed and noted below: Laboratory Tests 06/09/18 06/09/18 06/09/18 07:00 07:00 07:00 WBC 6.7 RBC 4.60 Hgb 13.9 Hct 42.2 MCV 91.7 MCH 30.2 MCHC 32.9 RDW 13.8 Plt Count 289 MPV 9.9 Gran % 44.7 L Lymph % (Auto) 48.1 H [place] % (Auto) 5.2 Eos % (Auto) 1.6 Baso % (Auto) 0.4 Gran # 3.00 Lymph # (Auto) 3.2 [place] # (Auto) 0.4 Eos # (Auto) 0.1 Baso # (Auto) 0.03 Sodium 138 Potassium 4.0 Chloride 105 Carbon Dioxide 27 Anion Gap 11 BUN 15 Creatinine 0.5 L Est GFR ( Amer) > 60 Est GFR (Non-Af Amer) > 60 Random Glucose 178 H Calcium 9.4 Phosphorus 4.3 Magnesium 1.9 Total Bilirubin 0.4 Direct Bilirubin AST 25 ALT 55 Alkaline Phosphatase 118 Total Protein 6.3 Albumin 3.5 Globulin 2.9 Albumin/Globulin Ratio 1.2 Triglycerides 212 H Cholesterol 226 H LDL Cholesterol Direct 137 H HDL Cholesterol 40 Free T4 Thyroxine (T4) Total T3 TSH 3rd Generation 1.22 06/09/18 06/09/18 08:50 08:50 WBC RBC Hgb Hct MCV MCH MCHC RDW Plt Count MPV Gran % Lymph % (Auto) [place] % (Auto) Eos % (Auto) Baso % (Auto) Gran # Lymph # (Auto) [place] # (Auto) Eos # (Auto) Baso # (Auto) Sodium Potassium Chloride Carbon Dioxide Anion Gap BUN Creatinine Est GFR ( Amer) Est GFR (Non-Af Amer) Random Glucose Calcium Phosphorus Magnesium Total Bilirubin 0.4 Direct Bilirubin 0.1 AST 30 ALT 55 Alkaline Phosphatase 119 Total Protein 6.8 Albumin 3.6 Globulin 3.2 Albumin/Globulin Ratio 1.1 Triglycerides Cholesterol LDL Cholesterol Direct HDL Cholesterol Free T4 1.21 Thyroxine (T4) 8.9 Total T3 1.26 TSH 3rd Generation Estimated Date of D/C: 06/22/18
--- NOTE | 2018-06-20 16:29 | PCM.BM ---
Treatment Plan Problems - Problems identified on initial assessmt AGITATED BEHAVIOR Date Initiated: 06/11/18 Time Initiated: 10:00 Assessment reference: NA Status: Active Priority: 1 NON COMPLIANCE WITH TX Date Initiated: 06/11/18 Time Initiated: 10:00 Assessment reference: NA Status: Active Priority: 2 Treatment assets and liabiliti Patient Assests: cooperative, negotiates basic needs Patient Liabilities: imparied memory - Milieu Protocol Maintain good personal hygiene: every shift Encourage regular showers, every shift Remind patient to perform daily oral care, every shift Assist patient to perform ADL's Maintain personal safety: daily Educate patient to report safety concerns to staff, daily Monitor environment for contraband/sharps Medication safety: Monitor for expected outcome, potential side effects: daily, Assess barriers to learning: daily, Assess readiness for medication education: daily Milieu Narrative: * group, milieu and supportive tx * Seroquel 200 mg twice a day for mood stabilization * Ambien 5 mg as needed for insomnia * Lexapro decreased to 5 mg with plan to ultimately discontinue it in favor of trial with Effexor. Effexor 37.5mg po daily for depression/anxiety initiated 06/19/2018 * Klonopin 0.5mg twice a day and 0.5 mg at the nighttime for anxiety * Patient refused ECT treatment, but might greatly benefit from it * vitals reviewed and noted below: Selected Entries 06/19/18 06/19/18 07:00 16:00 Temperature 97.8 F Pulse Rate 89 80 Respiratory 19 Rate Blood Pressure 116/68 108/66 * consultation for discharge plan and social issues * New lab results noted below: Laboratory Results - last 24 hr 06/20/18 06/20/18 08:00 08:00 WBC 4.8 D RBC 4.54 Hgb 13.3 Hct 41.8 MCV 92.1 MCH 29.3 MCHC 31.8 RDW 13.4 Plt Count 258 MPV 10.0 Neut % (Auto) 29.5 L Lymph % (Auto) 53.8 H Hitchcock % (Auto) 15.5 H Eos % (Auto) 0.6 L Baso % (Auto) 0.6 Lymph # (Auto) 2.6 Hitchcock # (Auto) 0.8 H Eos # (Auto) 0.0 Baso # (Auto) 0.03 Absolute Neuts (auto) 1.42 Sodium 139 Potassium 3.7 Chloride 104 Carbon Dioxide 31 Anion Gap 8 L BUN 15 Creatinine 0.6 L Est GFR ( Amer) > 60 Est GFR (Non-Af Amer) > 60 Random Glucose 137 H Calcium 8.8 Total Bilirubin 0.3 AST 20 ALT 29 Alkaline Phosphatase 80 Total Protein 6.3 Albumin 3.4 Globulin 2.9 Albumin/Globulin Ratio 1.2 * [facility] admission labs reviewed and noted below: Laboratory Tests 06/09/18 06/09/18 06/09/18 07:00 07:00 07:00 WBC 6.7 RBC 4.60 Hgb 13.9 Hct 42.2 MCV 91.7 MCH 30.2 MCHC 32.9 RDW 13.8 Plt Count 289 MPV 9.9 Gran % 44.7 L Lymph % (Auto) 48.1 H Hitchcock % (Auto) 5.2 Eos % (Auto) 1.6 Baso % (Auto) 0.4 Gran # 3.00 Lymph # (Auto) 3.2 Hitchcock # (Auto) 0.4 Eos # (Auto) 0.1 Baso # (Auto) 0.03 Sodium 138 Potassium 4.0 Chloride 105 Carbon Dioxide 27 Anion Gap 11 BUN 15 Creatinine 0.5 L Est GFR ( Amer) > 60 Est GFR (Non-Af Amer) > 60 Random Glucose 178 H Calcium 9.4 Phosphorus 4.3 Magnesium 1.9 Total Bilirubin 0.4 Direct Bilirubin AST 25 ALT 55 Alkaline Phosphatase 118 Total Protein 6.3 Albumin 3.5 Globulin 2.9 Albumin/Globulin Ratio 1.2 Triglycerides 212 H Cholesterol 226 H LDL Cholesterol Direct 137 H HDL Cholesterol 40 Free T4 Thyroxine (T4) Total T3 TSH 3rd Generation 1.22 06/09/18 06/09/18 08:50 08:50 WBC RBC Hgb Hct MCV MCH MCHC RDW Plt Count MPV Gran % Lymph % (Auto) Hitchcock % (Auto) Eos % (Auto) Baso % (Auto) Gran # Lymph # (Auto) Hitchcock # (Auto) Eos # (Auto) Baso # (Auto) Sodium Potassium Chloride Carbon Dioxide Anion Gap BUN Creatinine Est GFR ( Amer) Est GFR (Non-Af Amer) Random Glucose Calcium Phosphorus Magnesium Total Bilirubin 0.4 Direct Bilirubin 0.1 AST 30 ALT 55 Alkaline Phosphatase 119 Total Protein 6.8 Albumin 3.6 Globulin 3.2 Albumin/Globulin Ratio 1.1 Triglycerides Cholesterol LDL Cholesterol Direct HDL Cholesterol Free T4 1.21 Thyroxine (T4) 8.9 Total T3 1.26 TSH 3rd Generation Family Contact Family involvement: Family/SO is involved Family contact: Patient agrees to contact Family contact name: John [phone], daughter Family contacted how many times per week?: 2 Discharge/Continuing Care - Education Needs Education Needs: Patient Medication, Patient Diagnosis/Disease Process, Patient Coping Skills, Patient Community resources, Patient Activities of Daily Living, Patient Pain, Patient Nutrition, Patient Uses of Medical Equipment, Patient Health Practices/Safety, Patient Personal Hygiene/Grooming, Patient Aftercare Safety Plan - Discharge Discharge Criteria: Tolerates medication w/o severe side effects, Free of Suicidal thoughts, Free of agitation, Normal sleep pattern, Ability to care for self, Reduction of target symptoms Discharge to:: Home - Treatment Team Participation Patient/Family/SO Statement: * group, milieu and supportive tx * Seroquel 200 mg twice a day for mood stabilization * Ambien 5 mg as needed for insomnia * Lexapro decreased to 5 mg with plan to ultimately discontinue it in favor of trial with Effexor. Effexor 37.5mg po daily for depression/anxiety initiated 06/19/2018 * Klonopin 0.5mg twice a day and 0.5 mg at the nighttime for anxiety * Patient refused ECT treatment, but might greatly benefit from it * vitals reviewed and noted below: Selected Entries 06/19/18 06/19/18 07:00 16:00 Temperature 97.8 F Pulse Rate 89 80 Respiratory 19 Rate Blood Pressure 116/68 108/66 * consultation for discharge plan and social issues * New lab results noted below: Laboratory Results - last 24 hr 06/20/18 06/20/18 08:00 08:00 WBC 4.8 D RBC 4.54 Hgb 13.3 Hct 41.8 MCV 92.1 MCH 29.3 MCHC 31.8 RDW 13.4 Plt Count 258 MPV 10.0 Neut % (Auto) 29.5 L Lymph % (Auto) 53.8 H Hitchcock % (Auto) 15.5 H Eos % (Auto) 0.6 L Baso % (Auto) 0.6 Lymph # (Auto) 2.6 Hitchcock # (Auto) 0.8 H Eos # (Auto) 0.0 Baso # (Auto) 0.03 Absolute Neuts (auto) 1.42 Sodium 139 Potassium 3.7 Chloride 104 Carbon Dioxide 31 Anion Gap 8 L BUN 15 Creatinine 0.6 L Est GFR ( Amer) > 60 Est GFR (Non-Af Amer) > 60 Random Glucose 137 H Calcium 8.8 Total Bilirubin 0.3 AST 20 ALT 29 Alkaline Phosphatase 80 Total Protein 6.3 Albumin 3.4 Globulin 2.9 Albumin/Globulin Ratio 1.2 * [facility] admission labs reviewed and noted below: Laboratory Tests 06/09/18 06/09/18 06/09/18 07:00 07:00 07:00 WBC 6.7 RBC 4.60 Hgb 13.9 Hct 42.2 MCV 91.7 MCH 30.2 MCHC 32.9 RDW 13.8 Plt Count 289 MPV 9.9 Gran % 44.7 L Lymph % (Auto) 48.1 H Hitchcock % (Auto) 5.2 Eos % (Auto) 1.6 Baso % (Auto) 0.4 Gran # 3.00 Lymph # (Auto) 3.2 Hitchcock # (Auto) 0.4 Eos # (Auto) 0.1 Baso # (Auto) 0.03 Sodium 138 Potassium 4.0 Chloride 105 Carbon Dioxide 27 Anion Gap 11 BUN 15 Creatinine 0.5 L Est GFR ( Amer) > 60 Est GFR (Non-Af Amer) > 60 Random Glucose 178 H Calcium 9.4 Phosphorus 4.3 Magnesium 1.9 Total Bilirubin 0.4 Direct Bilirubin AST 25 ALT 55 Alkaline Phosphatase 118 Total Protein 6.3 Albumin 3.5 Globulin 2.9 Albumin/Globulin Ratio 1.2 Triglycerides 212 H Cholesterol 226 H LDL Cholesterol Direct 137 H HDL Cholesterol 40 Free T4 Thyroxine (T4) Total T3 TSH 3rd Generation 1.22 06/09/18 06/09/18 08:50 08:50 WBC RBC Hgb Hct MCV MCH MCHC RDW Plt Count MPV Gran % Lymph % (Auto) Hitchcock % (Auto) Eos % (Auto) Baso % (Auto) Gran # Lymph # (Auto) Hitchcock # (Auto) Eos # (Auto) Baso # (Auto) Sodium Potassium Chloride Carbon Dioxide Anion Gap BUN Creatinine Est GFR ( Amer) Est GFR (Non-Af Amer) Random Glucose Calcium Phosphorus Magnesium Total Bilirubin 0.4 Direct Bilirubin 0.1 AST 30 ALT 55 Alkaline Phosphatase 119 Total Protein 6.8 Albumin 3.6 Globulin 3.2 Albumin/Globulin Ratio 1.1 Triglycerides Cholesterol LDL Cholesterol Direct HDL Cholesterol Free T4 1.21 Thyroxine (T4) 8.9 Total T3 1.26 TSH 3rd Generation Treatment Plan Review - Problem AGITATED BEHAVIOR Time Initiated: 10:00 Progress toward outcomes: resolved NON COMPLIANCE WITH TX Time Initiated: 10:00 Progress toward outcomes: improved
[2018-06-21] MEDS: Pantoprazole 40 mg EC Tab PO SCH (06:27)
[2018-06-21] MEDS: Levothyroxine 88 MCG TAB PO SCH (06:27)
[2018-06-21] MEDS: Insulin Lispro (HUMAlog) HIGH Coverage SC SCH ×4 (09:02→22:14)
[2018-06-21] MEDS: Insulin Detemir 100 units/ml Vial (Levemir) SC SCH ×2 (09:03→16:45)
[2018-06-21] MEDS: Omega-3-Acid Ethyl Esters 1 GM Cap PO SCH ×2 (10:15→16:44)
--- NOTE | 2018-06-21 10:22 | PCM.PYCHPN ---
Psychiatric Progress Note - Psychiatric Progress Note Patient seen today, length of contact: 30 minutes Problems Identified/Issues Discussed: History of Present Illness and Precipitating Events: Patient is a 72-year-old female with a history of bipolar disorder and dementia, prior psychiatric admissions at [facility] for depression and SA via drug OD, compliant with medications prescribed by her retired psychiatrist, Dr. Field who was transferred from [facility] for treatment of depression, anxiety and increased forgetfulness. I reviewed [facility] records which indicate the patient presented to their ER on June 02, 2018 with complaints of dizziness . She was treated for a fracture/dislocation of the left fourth finger and was to instruct a follow up with a hand specialist in a couple days. She was also treated for uncontrolled diabetes and evaluated for dizziness and near syncope. She was noted to somatic, depressed and anxious despite reported compliance with outpatient psychiatric medications of Seroquel 400 HS, Ambien 10 HS and klonopin 0.5 mg pi TID. Apparently patient was very worried because her psychiatrist, Dr. Field recently retired and she didn't know how to obtain another psychiatrist. I met with patient at bedside and although she is cooperative she presents as a poor and vague historian. Patient indicates awareness as she is at [facility] however she has no idea what month or year it is. She reports that she is profoundly depressed and anxious however denies any perceptual disturbance or SI. Presently she denies any discomfort pain or side effects of her medication and has been in fair behavior control since her transfer from [facility] PSYCHIATRIC HISTORY History of bipolar disorder prior psychiatric admissions at [facility] for depression and SA via drug OD, Compliant with medications prescribed by her retired psychiatrist, Dr. Field-- Seroquel 400 HS, Ambien 10 HS and klonopin 0.5 mg pi TID SOCIAL HISTORY Born and raised in [facility]. Patient has 5 children and reportedly resides in by herself. PROGRESS NOTE 06/21/18 I reviewed recent notes and met with patient at bedside. Patient is oriented x3 and remains cooperative and responsive. She seems more oriented than our prior interviews though appearance is unkempt. Patient reports that she continues to be depressed. She is aware of the therapeutic latency of her medications and denies any hopelessness or SI. Indicates that her mood is improving a little since admission. She still feels anxious (though this is also improving a little) and complains of poor appetite "I am not eating too much". She slept a little better last night. Patient continues to deny any perceptual disturbance or SI. Presently she denies any discomfort pain or side effects of her medication and has been in good behavioral control. Tolerating cross taper of lexapro to effexor well thus far. Staff note that patient has been quiet and still generally keeps to herself though appears brighter and a little more spontaneous since admission. Diagnostic Results: Bipolar Disorder by history Medication Change: Yes (Lexapro discontinued and effexor increased) Medical Record Reviewed: Yes Mental Status Examination - Cognitive Function Orientation: Place Memory: Intact Attention: WNL Concentration: Poor Association: Loose Fund of Knowledge: Poor - Mood Mood: Depressed ("I am still depressed and anxious"), Anxious - Affect Affect: Constricted (And tearful) - Speech Speech: Appropriate - Formal Thought Process Formal Thought Process: No Impairment - Suicidal Ideation Suicidal Ideation: No - Homicidal Ideation Homicidal Ideation: No Goal/Treatment Plan - Goal/Treatment Plan Need for Continued Stay: Remain at risks for inpatient hospitalization, Severe depression anxiety, Discharge may exacerbated symptoms, Severe functional impairment Progress Toward Problem(s) and Goals/Treatment Plan: * group, milieu and supportive tx * Appreciate f/u by Dr. Gonzalez on 06/20/18~no new recommendations at this time, will continue to f/u. * Seroquel 200 mg twice a day for mood stabilization * Ambien 5 mg as needed for insomnia * Lexapro d/c'ed on 06/21/18 (last dose of 5 mg given on 06/21/18). Effexor 37.5mg po daily for depression/anxiety initiated 06/19/2018 and increased to 75 mg po daily on 06/21/18 * Klonopin 0.5mg twice a day and 0.5 mg at the nighttime for anxiety * Patient refused ECT treatment, but might greatly benefit from it * vitals reviewed and noted below: Selected Entries 06/20/18 06/20/18 06/21/18 06:53 16:00 07:22 Temperature 97.4 F L 98.2 F Pulse Rate 85 101 H 81 Respiratory 20 20 Rate Blood Pressure 114/65 103/78 139/80 * consultation for discharge plan and social issues * New lab results noted below: Laboratory Results - last 24 hr 06/20/18 06/20/18 08:00 08:00 WBC 4.8 D RBC 4.54 Hgb 13.3 Hct 41.8 MCV 92.1 MCH 29.3 MCHC 31.8 RDW 13.4 Plt Count 258 MPV 10.0 Neut % (Auto) 29.5 L Lymph % (Auto) 53.8 H Bland % (Auto) 15.5 H Eos % (Auto) 0.6 L Baso % (Auto) 0.6 Lymph # (Auto) 2.6 Bland # (Auto) 0.8 H Eos # (Auto) 0.0 Baso # (Auto) 0.03 Absolute Neuts (auto) 1.42 Sodium 139 Potassium 3.7 Chloride 104 Carbon Dioxide 31 Anion Gap 8 L BUN 15 Creatinine 0.6 L Est GFR ( Amer) > 60 Est GFR (Non-Af Amer) > 60 Random Glucose 137 H Calcium 8.8 Total Bilirubin 0.3 AST 20 ALT 29 Alkaline Phosphatase 80 Total Protein 6.3 Albumin 3.4 Globulin 2.9 Albumin/Globulin Ratio 1.2 * [facility] admission labs reviewed and noted below: Laboratory Tests 06/09/18 06/09/18 06/09/18 07:00 07:00 07:00 WBC 6.7 RBC 4.60 Hgb 13.9 Hct 42.2 MCV 91.7 MCH 30.2 MCHC 32.9 RDW 13.8 Plt Count 289 MPV 9.9 Gran % 44.7 L Lymph % (Auto) 48.1 H Bland % (Auto) 5.2 Eos % (Auto) 1.6 Baso % (Auto) 0.4 Gran # 3.00 Lymph # (Auto) 3.2 Bland # (Auto) 0.4 Eos # (Auto) 0.1 Baso # (Auto) 0.03 Sodium 138 Potassium 4.0 Chloride 105 Carbon Dioxide 27 Anion Gap 11 BUN 15 Creatinine 0.5 L Est GFR ( Amer) > 60 Est GFR (Non-Af Amer) > 60 Random Glucose 178 H Calcium 9.4 Phosphorus 4.3 Magnesium 1.9 Total Bilirubin 0.4 Direct Bilirubin AST 25 ALT 55 Alkaline Phosphatase 118 Total Protein 6.3 Albumin 3.5 Globulin 2.9 Albumin/Globulin Ratio 1.2 Triglycerides 212 H Cholesterol 226 H LDL Cholesterol Direct 137 H HDL Cholesterol 40 Free T4 Thyroxine (T4) Total T3 TSH 3rd Generation 1.22 06/09/18 06/09/18 08:50 08:50 WBC RBC Hgb Hct MCV MCH MCHC RDW Plt Count MPV Gran % Lymph % (Auto) Bland % (Auto) Eos % (Auto) Baso % (Auto) Gran # Lymph # (Auto) Bland # (Auto) Eos # (Auto) Baso # (Auto) Sodium Potassium Chloride Carbon Dioxide Anion Gap BUN Creatinine Est GFR ( Amer) Est GFR (Non-Af Amer) Random Glucose Calcium Phosphorus Magnesium Total Bilirubin 0.4 Direct Bilirubin 0.1 AST 30 ALT 55 Alkaline Phosphatase 119 Total Protein 6.8 Albumin 3.6 Globulin 3.2 Albumin/Globulin Ratio 1.1 Triglycerides Cholesterol LDL Cholesterol Direct HDL Cholesterol Free T4 1.21 Thyroxine (T4) 8.9 Total T3 1.26 TSH 3rd Generation Estimated Date of D/C: 06/22/18
--- NOTE | 2018-06-21 20:59 | PN ---
DATE: 06/21/2018 SUBJECTIVE: The patient is seen in the dayroom while having breakfast. The patient is sitting up in the bed. The patient appears to be alert, awake, responsive. The patient does not appear to be in any distress. Overnight nurse's notes were reviewed. The patient was found to be more isolative. The circumstantial thought process and depressed mood compliant with medications. Appetite was found to be good. No suicidal ideation or attempt noted.. The patient this morning was relatively better. No auditory or visual hallucination noted. No suicidal or homicidal ideation noted. PHYSICAL EXAMINATION: VITAL SIGNS: Vital signs in the last 12 to 24 hours, T-max 98.2, heart rate 81, blood pressure 139/80, respiration 20, O2 sat not documented. HEENT: Head is normocephalic, atraumatic. HEENT examination shows pink conjunctivae. Anicteric sclerae. No oropharyngeal lesion. NECK: No neck rigidity. CHEST: Kyphosis. CARDIOPULMONARY: S1, S2, regular rhythm. No audible murmur, gallop, rub. LUNGS: Shows no audible crackle, rales or wheezing. ABDOMEN: Soft. Positive bowel sound. No palpable hepatosplenomegaly. No guarding. No rigidity. No rebound tenderness. No organomegaly noted. GENITALIA: Female. RECTAL: Deferred. EXTREMITIES: Shows no pitting edema. No calf tenderness. No Homans' sign. NEUROLOGIC: The patient is alert, awake, responsive. She is able to ambulate independently. Motor strength is 5/5 in the upper and lower extremity. MUSCULOSKELETAL: Shows a body mass index of 24. DIAGNOSTICS: From 06/20/2018, WBC 4.8, hemoglobin and hematocrit 13.3, 41.8, platelet 258. Sodium 139, potassium 3.7, chloride 104, CO2 31, anion gap 8, BUN 15, creatinine 0.6, GFR greater than 60, glucose 137, calcium is 8.8. LFTs are within normal limit. The patient is seen by Psychiatry yesterday, 06/21/2018. IMPRESSION: 1. Acute exacerbation of bipolar disorder with acute exacerbation of anxiety and depression. 2. History of bipolar disorder and questionable history of dementia. 3. History of depression and suicidal attempt and suicidal ideation. 4. History of electroconvulsive therapy treatment. 5. Left fourth finger fracture dislocation. 6. Uncontrolled insulin-requiring diabetes mellitus with hemoglobin A1c of greater than 11 and fructosamine of greater than 325. 7. Insomnia. 8. History of bipolar disorder. 9. Depression. 10. Constricted affect. 11. Hypovitaminosis D. 12. Hyperlipidemia. 13. Hypertriglyceridemia. 14. Dizziness. 15. Depression. 16. Anxiety. 17. Hypertriglyceridemia. 18. Hypothyroidism. PLAN: At this time, the patient is seen by the psychiatrist today. Their recommendation is possible discharge tomorrow, 06/22/2018. Current medications, Ambien 5 mg at bedtime, p.r.n., meclizine, Antivert 25 mg p.o. every 8 hours, p.r.n., Drisdol 50,000 units weekly, Effexor 75 mg daily, Humalog high-dose sliding scale coverage a.c. and at bedtime, Klonopin 0.5 mg twice a day and Klonopin 0.5 mg at bedtime, Levemir 20 units with breakfast and dinner, Lipitor 40 mg daily, Lovaza 1 g twice a day, Protonix 40 mg daily, Seroquel 200 mg a.m. and at bedtime, Synthroid 88 mcg daily Tylenol p.r.n., Zofran 4 mg every 8 p.r.n. The patient is on heart-healthy diet, out of bed, SCDs, physical therapy, occupational therapy all ordered. The patient is seen and evaluated. The patient will be followed closely when the patient is in psychiatric floor. Dictated and electronically signed, not read. Tim Gonzalez MD
[2018-06-22] MEDS: Levothyroxine 88 MCG TAB PO SCH (06:11)
[2018-06-22] MEDS: Pantoprazole 40 mg EC Tab PO SCH (06:11)
[2018-06-22] MEDS: Insulin Lispro (HUMAlog) HIGH Coverage SC SCH ×4 (08:20→21:09)
[2018-06-22] MEDS: Omega-3-Acid Ethyl Esters 1 GM Cap PO SCH ×2 (09:43→16:03)
[2018-06-22] MEDS: Insulin Detemir 100 units/ml Vial (Levemir) SC SCH ×2 (09:45→17:10)
--- NOTE | 2018-06-22 13:50 | PCM.PYCHPN ---
Psychiatric Progress Note - Psychiatric Progress Note Patient seen today, length of contact: 30 minutes Patient Chief Complaint: "I am eating a little better" Problems Identified/Issues Discussed: ECT education, risk/benefits and alternatives discussed, suicide/ homicide pr evention, past psychiatric h/o, current psychiatric symptoms, medical problems, risk/benefits and alternatives of medications, medications compliance, coping strategies, substance abuse h/o, relapse prevention, importance of follow up with psychiatrist and therapist, discharge plan. Medical Problems: Patient has multiple medical issues, including Insulin dependent diabetes mellitus Hypothyroidism Hyperlipidemia History of dizziness, syncopal episodes Recent fracture and dislocation of the left fourth finger Diagnostic Results: 06/09/18 07:00 06/09/18 07:00 Lab Results 06/11/18 07:21: POC Glucose (mg/dL) 139 H 06/10/18 20:56: POC Glucose (mg/dL) 178 H 06/10/18 16:15: POC Glucose (mg/dL) 146 H 06/10/18 11:03: POC Glucose (mg/dL) 215 H 06/10/18 08:37: POC Glucose (mg/dL) 101 06/09/18 21:06: POC Glucose (mg/dL) 248 H 06/09/18 17:22: POC Glucose (mg/dL) 141 H 06/09/18 11:17: POC Glucose (mg/dL) 221 H 06/09/18 08:50: Free T4 1.21, Thyroxine (T4) 8.9, Total T3 1.26 06/09/18 08:50: Fructosamine 325 H, Homocysteine Cardiovas 7.6 06/09/18 08:50: 25-OH Vitamin D Total 26.0 L 06/09/18 08:50: Total Bilirubin 0.4, Direct Bilirubin 0.1, AST 30, ALT 55, Alkaline Phosphatase 119, Total Protein 6.8, Albumin 3.6, Globulin 3.2, Albumin/Globulin Ratio 1.1, Homocysteine 8.6, Free T3 pg/mL 2.79 06/09/18 07:00: Hemoglobin A1c 11.1 H 06/09/18 07:00: Sodium 138, Potassium 4.0, Chloride 105, Carbon Dioxide 27, Anion Gap 11, BUN 15, Creatinine 0.5 L, Est GFR ( Amer) > 60, Est GFR (Non-Af Amer) > 60, Random Glucose 178 H, Calcium 9.4, Phosphorus 4.3, Magnesium 1.9, Total Bilirubin 0.4, AST 25, ALT 55, Alkaline Phosphatase 118, Total Protein 6.3, Albumin 3.5, Globulin 2.9, Albumin/Globulin Ratio 1.2, Triglycerides 212 H, Cholesterol 226 H, LDL Cholesterol Direct 137 H, HDL Cholesterol 40 06/09/18 07:00: WBC 6.7, RBC 4.60, Hgb 13.9, Hct 42.2, MCV 91.7, MCH 30.2, MCHC 32.9, RDW 13.8, Plt Count 289, MPV 9.9, Gran % 44.7 L, Lymph % (Auto) 48.1 H, [place] % (Auto) 5.2, Eos % (Auto) 1.6, Baso % (Auto) 0.4, Gran # 3.00, Lymph # (Auto) 3.2, [place] # (Auto) 0.4, Eos # (Auto) 0.1, Baso # (Auto) 0.03 06/09/18 07:00: TSH 3rd Generation 1.22 06/09/18 07:00: RPR Nonreactive Vital Signs Temp Pulse Resp BP Pulse Ox 06/11/18 07:00 98.2 F 80 19 134/86 06/10/18 16:00 78 128/77 06/10/18 07:00 98.2 F 91 H 19 128/72 06/09/18 15:46 93 H 109/64 06/09/18 07:32 98.6 F 86 20 122/77 06/09/18 06:22 16 06/08/18 23:39 97.8 F 89 18 111/70 96 06/08/18 22:47 97.8 F 89 18 111/70 96 Temp Pulse Resp BP Pulse Ox 97.8 F 89 19 116/68 96 06/19/18 07:00 06/19/18 07:00 06/19/18 07:00 06/19/18 07:00 06/08/18 23:39 Labs ordered for tomorrow, DSM 5 Symptoms Update: Patient is a 72-year-old female with a history of bipolar disorder and dementia, prior psychiatric admissions at [facility] for depression and SA via drug OD, compliant with medications prescribed by her retired psychiatrist, Dr. Field who was transferred from [facility] for treatment of depression, anxiety and increased forgetfulness. She was seen and examined today at the treatment team meeting room, poor personal hygiene, affect is depressed and tearful, patient wants present better than she actually is. pt reported that "I feel better a little", as per staff patient preferred to stay in her room, but more visible in the unit, patient was not eating this week, yesterday her appetite was little better, patient still refused to have ECT treatment, this bond writer initiated Effexor, patient tolerated medications well, no side effects observed or reported. Collateral's were obtained from patient's daughter, by SW: 06/13/18: Trigger for the pt's depression was pt's son who suffered from bipolar disorder and non-compliant with medications, taking an impulsive trip to [facility] in April 2018. While patient was at [facility], pt's psychotropic medica tions were stopped, causing patient to become increasingly depressed. Two psychiatric admissions at [facility] in the Summer and Fall 2017 due to overdose on medications. Since that time pt's daughter controls pt's medications. Patient's daughter reports patient has hx of ECT about 15-20 years ago at [facility]. Patient's daughter reports ECT was effective. Pt has NO h/o dementia. Patient psychiatrist retired and patient had difficulties to find one. Patient's daughter is not pt's POA. SW asked if she will be pt's POA if patient is agreeable. So far patient tolerates medications well, no side effects observed or reported, aims 0, no EPS. Diagnostic Results: Bipolar Disorder by history Patient does not have a history of dementia at the treatment team meeting room, patient presented to be unkempt, Medication Change: Yes (Effexor increased) Medical Record Reviewed: Yes Consults ordered or reviewed: Medical consult appreciated, please see Dr. Downs's/ notes for more detailed information. Dietitian consult was initiated Mental Status Examination - Cognitive Function Orientation: Place Memory: Intact Attention: WNL Concentration: Poor Association: Loose Fund of Knowledge: Poor - Mood Mood: Depressed ("I am still depressed and anxious"), Anxious - Affect Affect: Constricted (Depressed and tearful) - Speech Speech: Appropriate (Underproductive low volume ) - Formal Thought Process Formal Thought Process: No Impairment - Suicidal Ideation Suicidal Ideation: No - Homicidal Ideation Homicidal Ideation: No Goal/Treatment Plan - Goal/Treatment Plan Need for Continued Stay: Remain at risks for inpatient hospitalization, Severe depression anxiety, Discharge may exacerbated symptoms, Severe functional impairment Progress Toward Problem(s) and Goals/Treatment Plan: Milieu/structure/supportive therapy SW consultation for discharge plan and social issues Med management: Seroquel 200 mg twice a day for mood stabilization Ambien 5 mg as needed for insomnia Effexor 37.5 mg +75 mg for depression and anxiety Synthroid 88 mcg daily Drisdol 50,000 units every 7 days Patient refused ECT treatment, but might greatly benefit from it Klonopin 0.5mg twice a day and 0.5 mg at the nighttime for anxiety Family involvement, collaterals appreciated Follow up on labs Will monitor closely Pt was educated about risk/benefits and alternatives of medications, coping strategies (safety plan, suicide prevention), relapse prevention, importance of follow up with psychiatrist and therapist, stay away from drugs/alcohol/smoking Estimated Date of D/C: 06/25/18
--- NOTE | 2018-06-22 22:50 | PN ---
DATE: 06/22/2018 SUBJECTIVE: The patient is again seen lying in the bed today. Overnight nurse's notes were reviewed. The patient slept well, refused dinner last night. The patient was found to be less depressed, no anxiety noted. PHYSICAL EXAMINATION: VITAL SIGNS: T-max 99, heart rate 79, blood pressure 145/84, respirations 20, O2 sat not documented. HEENT: Normocephalic, atraumatic. HEENT examination shows pink conjunctivae. Anicteric sclerae. No oropharyngeal lesion. NECK: No neck rigidity. CHEST: Kyphosis. CARDIOPULMONARY: S1, S2, regular rhythm. Questionable soft systolic murmur at left sternal border, right second intercostal space, left second intercostal space. LUNGS: Shows no audible crackle, rales or wheezing. ABDOMEN: Soft. Positive bowel sounds. GENITALIA: Female. RECTAL: Deferred. EXTREMITIES: Shows no pitting edema, no calf tenderness, no Homans' sign. NEUROLOGIC: The patient is alert, awake, responsive. She is able to move upper and lower extremity without assistance. Gait examination is not tested. VASCULAR: Palpable pulses. DIAGNOSTICS : Fingerstick blood sugar 235, 191, 187, 139, 295, 193. CBC from 06/20/2018 and CMP from 06/20/2018 was reviewed. IMPRESSION: 1. Acute exacerbation of anxiety and depression. 2. History of bipolar disorder. 3. History of suicidal ideation and attempt. 4. Insulin dependent requiring diabetes mellitus. 5. Hyperlipidemia. 6. Hypothyroidism. 7. Hypertriglyceridemia. 8. History of vertigo. 9. Left hand fourth finger fracture and dislocation. 10. History of poor compliance and noncompliance. 11. Questionable history of dementia. 12. History of depression. 13. History of ECG treatment. 14. Hypovitaminosis D. 15. Insomnia. 16. Vertigo and dizziness. 17. Possible diabetic neuropathy. PLAN: At this time, the patient has been ordered Ambien 5 mg at bedtime p.r.n., meclizine 25 mg p.o. every 8 p.r.n., Drisdol 50,000 units weekly, Effexor 75 mg daily and 37.5 mg daily, Humalog high-dose sliding scale coverage a.c. and at bedtime, Klonopin 0.5 mg twice a day, Klonopin 0.5 mg at bedtime, Levemir 20 units with breakfast and dinner, Lipitor 40 mg daily, Lovaza 1 g twice a day, Seroquel 300 mg at bedtime and Seroquel 200 mg at 8:00 a.m., Synthroid 88 mcg daily, Zofran 4 mg p.o. every 8 p.r.n. At present, the patient will be continued on above therapeutic intervention. The patient will be continued on the psychiatry floor till the patient is cleared for discharge by Psychiatry. Dictated and electronically signed, not read. Tim Gonzalez MD
[2018-06-23] MEDS: Levothyroxine 88 MCG TAB PO SCH (05:46)
[2018-06-23] MEDS: Pantoprazole 40 mg EC Tab PO SCH (05:46)
[2018-06-23] MEDS: Omega-3-Acid Ethyl Esters 1 GM Cap PO SCH ×2 (09:18→17:19)
[2018-06-23] MEDS: Insulin Detemir 100 units/ml Vial (Levemir) SC SCH ×2 (09:19→17:19)
[2018-06-23] MEDS: Insulin Lispro (HUMAlog) HIGH Coverage SC SCH ×4 (09:20→22:09)
--- NOTE | 2018-06-23 10:20 | PCM.PYCHPN ---
Psychiatric Progress Note - Psychiatric Progress Note Patient seen today, length of contact: 30 minutes Problems Identified/Issues Discussed: PROGRESS NOTE 06/23/18 I reviewed recent notes and met with patient at bedside. Patient is oriented x3 and remains cooperative and responsive. She still seems more oriented, clear and focused than earlier admission interviews. Patient reports that she continues to be depressed. She is more hopeless than hopeful. Remains anxious with okay appetite . She slept a little better last night. Patient continues to deny any perceptual disturbance or SI. Presently she denies any discomfort pain or side effects of her medication and has been in good behavioral control. Tolerating discontinuation of lexapro and titration of effexor well thus far. Staff note that patient has been quiet and still generally keeps to herself though appears brighter and a little more spontaneous since admission. Diagnostic Results: Bipolar Disorder by history Medication Change: Yes (Effexor increased) Medical Record Reviewed: Yes Mental Status Examination - Cognitive Function Orientation: Place Memory: Intact Attention: WNL Concentration: Poor Association: Loose Fund of Knowledge: Poor - Mood Mood: Depressed ("I am still depressed, more hopeless than hopeful"), Anxious - Affect Affect: Constricted (Depressed ) - Speech Speech: Appropriate (Underproductive low volume ) - Formal Thought Process Formal Thought Process: No Impairment - Suicidal Ideation Suicidal Ideation: No - Homicidal Ideation Homicidal Ideation: No Goal/Treatment Plan - Goal/Treatment Plan Need for Continued Stay: Remain at risks for inpatient hospitalization, Severe depression anxiety, Discharge may exacerbated symptoms, Severe functional impairment Progress Toward Problem(s) and Goals/Treatment Plan: * group, milieu and supportive tx * vitals reviewed and noted below: Selected Entries 06/22/18 06/22/18 07:17 15:00 Temperature 99.0 F Pulse Rate 79 108 H Respiratory 20 19 Rate Blood Pressure 145/84 92/50 L * consultation for discharge plan and social issues * Prior lab results noted below: Laboratory Results - last 24 hr 06/20/18 06/20/18 08:00 08:00 WBC 4.8 D RBC 4.54 Hgb 13.3 Hct 41.8 MCV 92.1 MCH 29.3 MCHC 31.8 RDW 13.4 Plt Count 258 MPV 10.0 Neut % (Auto) 29.5 L Lymph % (Auto) 53.8 H [place] % (Auto) 15.5 H Eos % (Auto) 0.6 L Baso % (Auto) 0.6 Lymph # (Auto) 2.6 [place] # (Auto) 0.8 H Eos # (Auto) 0.0 Baso # (Auto) 0.03 Absolute Neuts (auto) 1.42 Sodium 139 Potassium 3.7 Chloride 104 Carbon Dioxide 31 Anion Gap 8 L BUN 15 Creatinine 0.6 L Est GFR ( Amer) > 60 Est GFR (Non-Af Amer) > 60 Random Glucose 137 H Calcium 8.8 Total Bilirubin 0.3 AST 20 ALT 29 Alkaline Phosphatase 80 Total Protein 6.3 Albumin 3.4 Globulin 2.9 Albumin/Globulin Ratio 1.2 * [facility] admission labs reviewed and noted below: Laboratory Tests 06/09/18 06/09/18 06/09/18 07:00 07:00 07:00 WBC 6.7 RBC 4.60 Hgb 13.9 Hct 42.2 MCV 91.7 MCH 30.2 MCHC 32.9 RDW 13.8 Plt Count 289 MPV 9.9 Gran % 44.7 L Lymph % (Auto) 48.1 H [place] % (Auto) 5.2 Eos % (Auto) 1.6 Baso % (Auto) 0.4 Gran # 3.00 Lymph # (Auto) 3.2 [place] # (Auto) 0.4 Eos # (Auto) 0.1 Baso # (Auto) 0.03 Sodium 138 Potassium 4.0 Chloride 105 Carbon Dioxide 27 Anion Gap 11 BUN 15 Creatinine 0.5 L Est GFR ( Amer) > 60 Est GFR (Non-Af Amer) > 60 Random Glucose 178 H Calcium 9.4 Phosphorus 4.3 Magnesium 1.9 Total Bilirubin 0.4 Direct Bilirubin AST 25 ALT 55 Alkaline Phosphatase 118 Total Protein 6.3 Albumin 3.5 Globulin 2.9 Albumin/Globulin Ratio 1.2 Triglycerides 212 H Cholesterol 226 H LDL Cholesterol Direct 137 H HDL Cholesterol 40 Free T4 Thyroxine (T4) Total T3 TSH 3rd Generation 1.22 06/09/18 06/09/18 08:50 08:50 WBC RBC Hgb Hct MCV MCH MCHC RDW Plt Count MPV Gran % Lymph % (Auto) [place] % (Auto) Eos % (Auto) Baso % (Auto) Gran # Lymph # (Auto) [place] # (Auto) Eos # (Auto) Baso # (Auto) Sodium Potassium Chloride Carbon Dioxide Anion Gap BUN Creatinine Est GFR ( Amer) Est GFR (Non-Af Amer) Random Glucose Calcium Phosphorus Magnesium Total Bilirubin 0.4 Direct Bilirubin 0.1 AST 30 ALT 55 Alkaline Phosphatase 119 Total Protein 6.8 Albumin 3.6 Globulin 3.2 Albumin/Globulin Ratio 1.1 Triglycerides Cholesterol LDL Cholesterol Direct HDL Cholesterol Free T4 1.21 Thyroxine (T4) 8.9 Total T3 1.26 TSH 3rd Generation Estimated Date of D/C: 06/25/18
[2018-06-24] MEDS: Pantoprazole 40 mg EC Tab PO SCH (06:04)
[2018-06-24] MEDS: Levothyroxine 88 MCG TAB PO SCH (06:04)
[2018-06-24 07:26] VITALS: RESP 19
[2018-06-24] MEDS: Omega-3-Acid Ethyl Esters 1 GM Cap PO SCH ×2 (08:42→16:22)
[2018-06-24] MEDS: Insulin Lispro (HUMAlog) HIGH Coverage SC SCH ×4 (08:43→21:08)
[2018-06-24] MEDS: Insulin Detemir 100 units/ml Vial (Levemir) SC SCH ×2 (08:43→16:21)
--- NOTE | 2018-06-24 09:13 | PCM.PYCHPN ---
Psychiatric Progress Note - Psychiatric Progress Note Patient seen today, length of contact: 30 minutes Problems Identified/Issues Discussed: PROGRESS NOTE 06/24/18 I reviewed recent notes and met with patient at bedside. Patient is oriented x3 and remains cooperative and responsive. She still seems more oriented, clear and focused than earlier admission interviews. Patient reports that she continues to be depressed. She is more hopeless than hopeful. Remains anxious with okay appetite . She slept a little better last night. Patient continues to deny any perceptual disturbance or SI. Presently she denies any discomfort pain or side effects of her medication and has been in good behavioral control. Tolerating discontinuation of lexapro and titration of effexor well thus far. Staff note that patient has been quiet and still generally keeps to herself though appears brighter and more visible since admission. Diagnostic Results: Bipolar Disorder by history Medication Change: No ( ) Medical Record Reviewed: Yes Mental Status Examination - Cognitive Function Orientation: Place Memory: Intact Attention: WNL Concentration: Poor Association: Loose Fund of Knowledge: Poor - Mood Mood: Depressed ("I am still depressed, more hopeless than hopeful"), Anxious - Affect Affect: Constricted (Depressed ) - Speech Speech: Appropriate (Underproductive low volume ) - Formal Thought Process Formal Thought Process: No Impairment - Suicidal Ideation Suicidal Ideation: No - Homicidal Ideation Homicidal Ideation: No Goal/Treatment Plan - Goal/Treatment Plan Need for Continued Stay: Remain at risks for inpatient hospitalization, Severe depression anxiety, Discharge may exacerbated symptoms, Severe functional impairment Progress Toward Problem(s) and Goals/Treatment Plan: * group, milieu and supportive tx * vitals reviewed and noted below: Selected Entries 06/24/18 07:00 Temperature 98.2 F Pulse Rate 82 Respiratory 19 Rate Blood Pressure 119/71 * consultation for discharge plan and social issues * Prior lab results noted below: Laboratory Results - last 24 hr 06/20/18 06/20/18 08:00 08:00 WBC 4.8 D RBC 4.54 Hgb 13.3 Hct 41.8 MCV 92.1 MCH 29.3 MCHC 31.8 RDW 13.4 Plt Count 258 MPV 10.0 Neut % (Auto) 29.5 L Lymph % (Auto) 53.8 H [place] % (Auto) 15.5 H Eos % (Auto) 0.6 L Baso % (Auto) 0.6 Lymph # (Auto) 2.6 [place] # (Auto) 0.8 H Eos # (Auto) 0.0 Baso # (Auto) 0.03 Absolute Neuts (auto) 1.42 Sodium 139 Potassium 3.7 Chloride 104 Carbon Dioxide 31 Anion Gap 8 L BUN 15 Creatinine 0.6 L Est GFR ( Amer) > 60 Est GFR (Non-Af Amer) > 60 Random Glucose 137 H Calcium 8.8 Total Bilirubin 0.3 AST 20 ALT 29 Alkaline Phosphatase 80 Total Protein 6.3 Albumin 3.4 Globulin 2.9 Albumin/Globulin Ratio 1.2 * [facility] admission labs reviewed and noted below: Laboratory Tests 06/09/18 06/09/18 06/09/18 07:00 07:00 07:00 WBC 6.7 RBC 4.60 Hgb 13.9 Hct 42.2 MCV 91.7 MCH 30.2 MCHC 32.9 RDW 13.8 Plt Count 289 MPV 9.9 Gran % 44.7 L Lymph % (Auto) 48.1 H [place] % (Auto) 5.2 Eos % (Auto) 1.6 Baso % (Auto) 0.4 Gran # 3.00 Lymph # (Auto) 3.2 [place] # (Auto) 0.4 Eos # (Auto) 0.1 Baso # (Auto) 0.03 Sodium 138 Potassium 4.0 Chloride 105 Carbon Dioxide 27 Anion Gap 11 BUN 15 Creatinine 0.5 L Est GFR ( Amer) > 60 Est GFR (Non-Af Amer) > 60 Random Glucose 178 H Calcium 9.4 Phosphorus 4.3 Magnesium 1.9 Total Bilirubin 0.4 Direct Bilirubin AST 25 ALT 55 Alkaline Phosphatase 118 Total Protein 6.3 Albumin 3.5 Globulin 2.9 Albumin/Globulin Ratio 1.2 Triglycerides 212 H Cholesterol 226 H LDL Cholesterol Direct 137 H HDL Cholesterol 40 Free T4 Thyroxine (T4) Total T3 TSH 3rd Generation 1.22 06/09/18 06/09/18 08:50 08:50 WBC RBC Hgb Hct MCV MCH MCHC RDW Plt Count MPV Gran % Lymph % (Auto) [place] % (Auto) Eos % (Auto) Baso % (Auto) Gran # Lymph # (Auto) [place] # (Auto) Eos # (Auto) Baso # (Auto) Sodium Potassium Chloride Carbon Dioxide Anion Gap BUN Creatinine Est GFR ( Amer) Est GFR (Non-Af Amer) Random Glucose Calcium Phosphorus Magnesium Total Bilirubin 0.4 Direct Bilirubin 0.1 AST 30 ALT 55 Alkaline Phosphatase 119 Total Protein 6.8 Albumin 3.6 Globulin 3.2 Albumin/Globulin Ratio 1.1 Triglycerides Cholesterol LDL Cholesterol Direct HDL Cholesterol Free T4 1.21 Thyroxine (T4) 8.9 Total T3 1.26 TSH 3rd Generation Estimated Date of D/C: 06/25/18
--- NOTE | 2018-06-24 18:44 | PN ---
DATE: 06/24/2018 SUBJECTIVE: The patient is seen in again lying in room 519, bed 1. The patient appears to be depressed and isolated. The patient refuses to come out of the room. The patient is seen lying in the bed. PHYSICAL EXAMINATION: VITAL SIGNS: T-max 98.2, heart rate 82, blood pressure 119/71, respiration 19. HEENT: Head is normocephalic, atraumatic. [place] conjunctivae. Anicteric sclerae. No oropharyngeal lesion. NECK: No neck rigidity. CHEST: Kyphosis. LUNGS: Shows no audible crackle, rales or wheezing. CARDIOVASCULAR: S1, S2, regular rhythm. ABDOMEN: Soft. Positive bowel sound. GENITALIA: Female. RECTAL: Deferred. EXTREMITIES: Show no pitting edema, no calf tenderness, no Homans' sign. NEUROLOGIC: The patient is alert, awake, responsive, is able to move upper and lower extremity without assistance. Gait examination is not tested. MUSCULOSKELETAL: Shows a body mass index of 23. VASCULAR: Palpable pulses. CRANIAL NERVES: II-XII limited. LABORATORY DATA: Fingerstick blood sugar 189, 161, 159, 257, 221. IMPRESSION AND PLAN: 1. Acute exacerbation of anxiety and depression with slow resolving depression. 2. Questionable social isolation. 3. Uncontrolled insulin-requiring diabetes mellitus with hemoglobin A1c of 11.1 and fructosamine of 325. 4. Hypovitaminosis D. 5. Hyperlipidemia, hypertriglyceridemia. 6. History of bipolar disorder. 7. Depression. 8. Insomnia. 9. Dizziness. 10. Insulin-requiring diabetes mellitus. 11. Hypothyroidism. PLAN: At this time the patient is medically stable. From the medicine perspective, the patient is currently on Ambien 5 mg at bedtime p.r.n.; Antivert 25 every 8 hours p.r.n.; Drisdol 50,000 units weekly; Effexor 75 mg daily and Effexor 37.5 mg daily at 10:00 a.m., 02:00 p.m.; Humalog medium dose sliding scale coverage; Klonopin 0.5 mg twice a day; Klonopin 0.5 mg at bedtime; Levemir 20 units with breakfast and dinner; Lipitor 40 mg daily; Lovaza 1 g twice a day; Protonix 40 mg daily; Seroquel 300 mg at bedtime; Seroquel 200 mg daily; Synthroid 88 mcg daily; Zofran 4 mg p.o. every 8 hours p.r.n. The patient anticipated date of discharge is 06/25/2018. The patient has been explained about the outpatient close followup with her primary care physician, Dr. Dereck Paniagua. The patient is to follow up with PMD after discharge for management of her diabetes, hyperlipidemia, hypertriglyceridemia, hypovitaminosis D. In addition, the patient was also advised about outpatient Podiatry and Ophthalmology followup. Dictated and electronically signed, not read. Tim Gonzalez MD
[2018-06-25] MEDS: Levothyroxine 88 MCG TAB PO SCH (05:05)
[2018-06-25] MEDS: Pantoprazole 40 mg EC Tab PO SCH (05:05)
[2018-06-25 07:09] VITALS: BP 133/83; PULSE 87; TEMP 97.8
[2018-06-25] MEDS: Omega-3-Acid Ethyl Esters 1 GM Cap PO SCH (09:21)
[2018-06-25] MEDS: Insulin Lispro (HUMAlog) HIGH Coverage SC SCH ×2 (09:21→11:54)
[2018-06-25] MEDS: Insulin Detemir 100 units/ml Vial (Levemir) SC SCH (09:24)
[2018-06-25] MEDS: Ergocalciferol 50,000 Intl Units Cap PO SCH (11:34)
--- NOTE | 2018-06-25 16:36 | PN ---
DATE: 06/25/2018 SUBJECTIVE: The patient has been on Psychiatry floor room 519. Overnight nurse's notes were reviewed. The patient was sad and depressed regarding discharge today. Otherwise there was no other adverse events noted documented, notified. OBJECTIVE: VITAL SIGNS: T-max 97.8, blood pressure 133/83, respiration 19. HEENT: Head normocephalic, atraumatic. Pinkish conjunctivae. Anicteric sclerae. No oropharyngeal lesion. NECK: No neck rigidity. CHEST: Kyphosis. LUNGS: Shows no audible crackle, rales or wheezing. CARDIOVASCULAR: S1, S2, regular rhythm. ABDOMEN: Soft. Positive bowel sound. No palpable hepatosplenomegaly. GENITALIA: Female. RECTAL: Deferred. EXTREMITIES: Shows no pitting edema, no Homans' sign. NEUROLOGIC: The patient is alert, awake, responsive, is able to move upper and lower extremity without assistance. Gait examination is not tested. Cranial nerves II-XII limited. VASCULAR: Palpable pulses. Plantars are downloads. DTRs at 2+. Fingerstick blood sugar readings were reviewed. Diagnostic data none from today. IMPRESSION AND PLAN: 1. Acute exacerbation of anxiety and depression. 2. History of bipolar disorder. 3. History of suicidal ideation, suicidal attempt. 4. Uncontrolled insulin-requiring diabetes mellitus with hyperglycemia and elevated hemoglobin A1c of 11.1 and elevated fructosamine. 5. Hypercholesteremia, hypertriglyceridemia. 6. Hypovitaminosis D. 7. Hypothyroidism. 8. Questionable history of dementia. 9. Poor personal hygiene. 10. Questionable social isolation. PLAN: At this time, the patient is medically stable for discharge from medical point of view. The patient needs close outpatient followup from medicine by the primary care physician with continuation of patient's medications as per the MAR and as per the discharge medication. The patient needs repeat lab work upon discharge with PMD. The patient needs close psychiatric followup upon discharge. In addition, the patient has been explained in [place] about outpatient Ophthalmology and Podiatry evaluation. The patient is for possible discharge today. Dictated and electronically signed, not read. Tim Gonzalez MD [facility] # [id number]
--- NOTE | 2018-06-25 16:55 | PCM.PYCHDC ---
Mental Status Examination - Mental Status Examination Orientation: Person, Place, Situation, Time Memory: Intact Mood: Neutral Affect: Constricted Attention: WNL (Much improved) Concentration: WNL (Much improved) Association: WNL Fund of Knowledge: WNL Formal Thought Process: No Impairment Description of patient's judgement and insight: Pt has improved insight into mental and medical illness, pt was compliant with medications and unit rules and regulations, pt was going to groups, was calm, cooperative, socially appropriate, no behavioral incidents, no agitation, no aggression. Psychotic Thoughts and Behaviors: Pt denied v/a/t hallucinations, denied paranoid ideations, pt does not appear to be psychotic, and thought process is goal directed. Suicidal Ideation: No Current Homicidal Ideation?: No Plan: pt adamantly denied thoughts of harming self or others denied intent or plan. Discharge Summary - Discharge Note Reason for Hospitalization: Depression, suicidal ideation, please see admission notes for more detailed information Psychiatric History (includes Medical, Family, Personal Hx): History of bipolar disorder, patient does not have history of dementia Laboratory Data: Abnormal Lab Results 06/24/18 06/24/18 06/25/18 15:58 21:04 07:54 POC Glucose (mg/dL) 274 H 249 H 162 H 06/25/18 11:36 POC Glucose (mg/dL) 200 H 06/20/18 08:00 06/20/18 08:00 Lab Results 06/25/18 11:36: POC Glucose (mg/dL) 200 H 06/25/18 07:54: POC Glucose (mg/dL) 162 H 06/24/18 21:04: POC Glucose (mg/dL) 249 H 06/24/18 15:58: POC Glucose (mg/dL) 274 H 06/24/18 11:57: POC Glucose (mg/dL) 189 H 06/24/18 07:29: POC Glucose (mg/dL) 161 H 06/23/18 21:11: POC Glucose (mg/dL) 159 H 06/23/18 16:29: POC Glucose (mg/dL) 257 H 06/23/18 11:12: POC Glucose (mg/dL) 221 H 06/23/18 07:26: POC Glucose (mg/dL) 137 H 06/22/18 20:33: POC Glucose (mg/dL) 248 H 06/22/18 16:40: POC Glucose (mg/dL) 179 H 06/22/18 11:51: POC Glucose (mg/dL) 197 H 06/22/18 07:29: POC Glucose (mg/dL) 171 H 06/21/18 21:48: POC Glucose (mg/dL) 235 H 06/21/18 16:32: POC Glucose (mg/dL) 191 H 06/21/18 11:48: POC Glucose (mg/dL) 187 H 06/21/18 07:30: POC Glucose (mg/dL) 139 H 06/20/18 21:12: POC Glucose (mg/dL) 295 H 06/20/18 16:09: POC Glucose (mg/dL) 193 H 06/20/18 11:15: POC Glucose (mg/dL) 180 H 06/20/18 08:00: Sodium 139, Potassium 3.7, Chloride 104, Carbon Dioxide 31, Anion Gap 8 L, BUN 15, Creatinine 0.6 L, Est GFR ( Amer) > 60, Est GFR (Non-Af Amer) > 60, Random Glucose 137 H, Calcium 8.8, Total Bilirubin 0.3, AST 20, ALT 29, Alkaline Phosphatase 80, Total Protein 6.3, Albumin 3.4, Globulin 2.9, Albumin/Globulin Ratio 1.2 06/20/18 08:00: WBC 4.8 D, RBC 4.54, Hgb 13.3, Hct 41.8, MCV 92.1, MCH 29.3, MCHC 31.8, RDW 13.4, Plt Count 258, MPV 10.0, Neut % (Auto) 29.5 L, Lymph % (Auto) 53.8 H, Crowley % (Auto) 15.5 H, Eos % (Auto) 0.6 L, Baso % (Auto) 0.6, Lymph # (Auto) 2.6, Crowley # (Auto) 0.8 H, Eos # (Auto) 0.0, Baso # (Auto) 0.03, Absolute Neuts (auto) 1.42 06/20/18 07:23: POC Glucose (mg/dL) 147 H 06/19/18 21:20: POC Glucose (mg/dL) 271 H 06/19/18 16:08: POC Glucose (mg/dL) 113 H 06/19/18 11:15: POC Glucose (mg/dL) 266 H 06/19/18 07:16: POC Glucose (mg/dL) 154 H 06/18/18 21:15: POC Glucose (mg/dL) 279 H 06/18/18 16:15: POC Glucose (mg/dL) 105 06/18/18 11:53: POC Glucose (mg/dL) 151 H 06/18/18 08:13: POC Glucose (mg/dL) 105 06/17/18 21:41: POC Glucose (mg/dL) 193 H 06/17/18 16:07: POC Glucose (mg/dL) 182 H 06/17/18 11:10: POC Glucose (mg/dL) 152 H 06/17/18 07:30: POC Glucose (mg/dL) 129 H 06/16/18 21:42: POC Glucose (mg/dL) 234 H 06/16/18 15:49: POC Glucose (mg/dL) 221 H 06/16/18 11:40: POC Glucose (mg/dL) 190 H 06/16/18 08:00: POC Glucose (mg/dL) 97 06/15/18 21:11: POC Glucose (mg/dL) 219 H 06/15/18 16:16: POC Glucose (mg/dL) 219 H 06/15/18 11:43: POC Glucose (mg/dL) 129 H 06/15/18 07:53: POC Glucose (mg/dL) 109 06/14/18 21:09: POC Glucose (mg/dL) 166 H 06/14/18 16:18: POC Glucose (mg/dL) 114 H 06/14/18 11:15: POC Glucose (mg/dL) 221 H 06/14/18 07:26: POC Glucose (mg/dL) 143 H 06/13/18 21:10: POC Glucose (mg/dL) 262 H 06/13/18 16:27: POC Glucose (mg/dL) 111 H 06/13/18 11:26: POC Glucose (mg/dL) 232 H 06/13/18 07:32: POC Glucose (mg/dL) 179 H 06/12/18 22:03: POC Glucose (mg/dL) 143 H 06/12/18 16:39: POC Glucose (mg/dL) 132 H 06/12/18 11:47: POC Glucose (mg/dL) 209 H 06/12/18 07:18: POC Glucose (mg/dL) 179 H 06/11/18 20:58: POC Glucose (mg/dL) 169 H 06/11/18 16:44: POC Glucose (mg/dL) 210 H 06/11/18 11:03: POC Glucose (mg/dL) 155 H 06/11/18 07:21: POC Glucose (mg/dL) 139 H 06/10/18 20:56: POC Glucose (mg/dL) 178 H 06/10/18 16:15: POC Glucose (mg/dL) 146 H 06/10/18 11:03: POC Glucose (mg/dL) 215 H 06/10/18 08:37: POC Glucose (mg/dL) 101 06/09/18 21:06: POC Glucose (mg/dL) 248 H 06/09/18 17:22: POC Glucose (mg/dL) 141 H 06/09/18 11:17: POC Glucose (mg/dL) 221 H 06/09/18 08:50: Free T4 1.21, Thyroxine (T4) 8.9, Total T3 1.26 06/09/18 08:50: Fructosamine 325 H, Homocysteine Cardiovas 7.6 06/09/18 08:50: 25-OH Vitamin D Total 26.0 L 06/09/18 08:50: Total Bilirubin 0.4, Direct Bilirubin 0.1, AST 30, ALT 55, Alkaline Phosphatase 119, Total Protein 6.8, Albumin 3.6, Globulin 3.2, Albumin/Globulin Ratio 1.1, Homocysteine 8.6, Free T3 pg/mL 2.79 06/09/18 07:00: Hemoglobin A1c 11.1 H 06/09/18 07:00: Sodium 138, Potassium 4.0, Chloride 105, Carbon Dioxide 27, Anion Gap 11, BUN 15, Creatinine 0.5 L, Est GFR ( Amer) > 60, Est GFR (Non-Af Amer) > 60, Random Glucose 178 H, Calcium 9.4, Phosphorus 4.3, Magnesium 1.9, Total Bilirubin 0.4, AST 25, ALT 55, Alkaline Phosphatase 118, Total Protein 6.3, Albumin 3.5, Globulin 2.9, Albumin/Globulin Ratio 1.2, Triglycerides 212 H, Cholesterol 226 H, LDL Cholesterol Direct 137 H, HDL Cholesterol 40 06/09/18 07:00: WBC 6.7, RBC 4.60, Hgb 13.9, Hct 42.2, MCV 91.7, MCH 30.2, MCHC 32.9, RDW 13.8, Plt Count 289, MPV 9.9, Gran % 44.7 L, Lymph % (Auto) 48.1 H, Crowley % (Auto) 5.2, Eos % (Auto) 1.6, Baso % (Auto) 0.4, Gran # 3.00, Lymph # (Auto) 3.2, Crowley # (Auto) 0.4, Eos # (Auto) 0.1, Baso # (Auto) 0.03 06/09/18 07:00: TSH 3rd Generation 1.22 06/09/18 07:00: RPR Nonreactive Vital Signs Temp Pulse Resp BP Pulse Ox 06/25/18 07:00 97.8 F 87 19 133/83 06/24/18 16:00 80 118/78 06/24/18 07:00 98.2 F 82 19 119/71 06/23/18 16:00 109 H 89/63 L 06/23/18 07:37 97.9 F 78 20 123/62 06/23/18 07:36 97.9 F 78 20 06/22/18 15:00 108 H 19 92/50 L 06/22/18 07:17 99.0 F 79 20 145/84 06/21/18 16:30 73 98/61 L 06/21/18 07:22 98.2 F 81 20 139/80 06/20/18 16:00 101 H 103/78 06/20/18 06:53 97.4 F L 85 20 114/65 06/19/18 16:00 80 108/66 06/19/18 07:00 97.8 F 89 19 116/68 06/18/18 15:00 83 20 103/83 06/18/18 07:36 98.1 F 86 20 133/81 06/17/18 07:26 97.7 F 82 20 132/79 06/16/18 08:36 97.3 F L 06/16/18 07:00 98.4 F 84 18 126/81 06/15/18 07:33 98.9 F 89 20 138/87 06/14/18 16:30 91 H 116/75 06/14/18 07:18 98.3 F 87 20 119/73 06/13/18 07:18 98.3 F 91 H 20 128/71 06/12/18 15:00 78 115/61 06/12/18 07:24 98.8 F 81 20 144/82 06/11/18 07:00 98.2 F 80 19 134/86 06/10/18 16:00 78 128/77 06/10/18 07:00 98.2 F 91 H 19 128/72 06/09/18 15:46 93 H 109/64 06/09/18 07:32 98.6 F 86 20 122/77 06/09/18 06:22 16 06/08/18 23:39 97.8 F 89 18 111/70 96 06/08/18 22:47 97.8 F 89 18 111/70 96 Consultations:: List each consultation separately and include: 1. Reason for request. 2. Findings. 3. Follow-up Consultations: Medical consult appreciated, please see Dr. Downs's/ notes for more detailed information. Dietitian consult appreciated Summary of Hospital Course include:: 1. Description of specific treatment plan utilized for patients during their course of treatmen. 2. Summarize the time- course for resolution of acute symptoms and/or regressed behaviors. 3. Describe issues identified and worked on during hospitalization. 4. Describe medication utilized. 5. Describe medical problems identified and treated. 6. Reassessment of suicide risk Summary of Hospital Course: As per Dr. Cummings's assessment: Patient is a 72-year-old female with a history of bipolar disorder and dementia, prior psychiatric admissions at [facility] for depression and SA via drug OD, compliant with medications prescribed by her retired psychiatrist, Dr. Field who was transferred from [facility] (formerly [facility]3] for treatment of depression, anxiety and increased forgetfulness. Initially patient was preferring to stay in her bed, appears to be depressed, hopeless, patient also has episodes of forgetfulness patient also had suicidal ideation and passive wish to be . Patient was stabilized on the following medications: Seroquel 200 mg twice a day for mood stabilization Ambien 5 mg as needed for insomnia Effexor 37.5 mg +75 mg for depression and anxiety Synthroid 88 mcg daily Drisdol 50,000 units every 7 days Klonopin 0.5mg twice a day and 0.5 mg at the nighttime for anxiety Patient was offered ECT treatment but patient, discussed with patient family, patient family also declined ECT treatment for the patient. So far patient tolerates medications well, no side effects observed or reported, aims 0, no EPS. Over the course of this hospitalization pt was attending groups, pt also had medication management, had therapeutic milieu. Overall pt improved, , as per daughter patient presented much better, patient presented to be less depressed, has some future oriented plans, pt also does not appear to be psychotic, or anxious, pt was socially appropriate, no behavioral issues, pts insight improved as well and soon pt deemed to be ready for discharge. At the time of the discharge patient pose no imminent danger to self or others, will be following up at [facility], info about Dr.Emmanuel Brady office also was provided to the pt's daughter, information about follow up appointment, time and address provided to the pt, (see SW note for more detailed information). It is a patient's responsibility to follow up with outpatient clinic, PMD as well as specialists In case patient will need to obtain results of studies pending at discharge, patient was provided with contact information of Psychiatric Inpatient unit [phone] as well as Medical Record Department [phone], as well as [facility] team [phone]. Patient does not use any drugs, does not smoke, does not drink alcohol. pt was provided with prescriptions for two weeks and one refill for psychotropic meds and one week for medical meds (see medication reconciliation form) Pt was educated about safety plan in case of worsening of symptoms or in case of suicidal or homicidal ideation call 911 or go to the nearest ER, also was educated to take meds as prescribed and stay away from drugs, pt verbalized understanding. - Diagnosis (1) Bipolar disorder Status: Chronic Priority: High - Final Diagnosis (DSM 5) Condition upon Discharge: STABLE Disposition: HOME/ ROUTINE Follow-up Treatment Plan: At the time of the discharge patient pose no imminent danger to self or others, will be following up at [facility], info about Dr.Gen Hriso office also was provided to the pt's daughter, information about follow up appointment, time and address provided to the pt, (see SW note for more detailed information). It is a patient's responsibility to follow up with outpatient clinic, PMD as well as specialists In case patient will need to obtain results of studies pending at discharge, patient was provided with contact information of Psychiatric Inpatient unit [phone] as well as Medical Record Department [phone], as well as [facility] team [phone]. Patient does not use any drugs, does not smoke, does not drink alcohol. pt was provided with prescriptions for two weeks and one refill for psychotropic meds and one week for medical meds (see medication reconciliation form) Pt was educated about safety plan in case of worsening of symptoms or in case of suicidal or homicidal ideation call 911 or go to the nearest ER, also was educated to take meds as prescribed and stay away from drugs, pt verbalized understanding. Prescriptions/Medication Reconciliation: Atorvastatin [Lipitor] 40 mg PO DIN #7 tab clonazePAM [Klonopin] 0.5 mg PO TID #45 tab Ergocalciferol [Drisdol 50,000 Intl Units Cap] 1 cap PO Q7D #2 cap Insulin Detemir [Levemir] 20 unit SC ACBD #10 unit Levothyroxine [Synthroid] 88 mcg PO 0600 #7 tab [id number] Ethyl Esters 1 GM [Lovaza] 1 gm PO BID #14 sgl Pantoprazole [Protonix EC Tab] 40 mg PO 0600 #7 ect QUEtiapine [SEROquel XR] 200 mg PO DAILY #14 ter QUEtiapine [SEROquel XR] 300 mg PO HS #14 ter Venlafaxine [Effexor] 37.5 mg PO DAILY #14 tab Venlafaxine [Effexor-XR] 75 mg PO DAILY #14 cer Zolpidem [Ambien] 5 mg PO HS PRN #14 tab PRN Reason: Insomnia - Smoking Cessation Smoking Cessation Medication prescribed: No Reason for not providing: Patient denied smoking - Antipsychotic Medications Pt discharged on 2 or more routine antipsychotic medications: No
== END 2018-06-25 15:51 | disposition home or self-care (01) | DRG 885 ==
LOC: ED 22:40 → ERH 23:06 → MERGE 23:06 → ERH 23:31 → PSYC 23:50
PROVIDERS: ADMIT Psychiatry & Neurology Psychiatry; ATTEND Psychiatry & Neurology Psychiatry
DX: F31.9 Bipolar disorder, unspecified (principal); R45.851 Suicidal ideations; F41.1 Generalized anxiety disorder; E11.65 Type 2 diabetes mellitus with hyperglycemia; E74.19 Other disorders of fructose metabolism; I10 Essential (primary) hypertension; E78.5 Hyperlipidemia, unspecified; E03.9 Hypothyroidism, unspecified; E78.1 Pure hyperglyceridemia; E55.9 Vitamin D deficiency, unspecified; E78.00 Pure hypercholesterolemia, unspecified; G47.00 Insomnia, unspecified; R42 Dizziness and giddiness; S62.605A Fracture of unspecified phalanx of left ring finger, initial encounter for closed fracture; W19.XXXA Unspecified fall, initial encounter; Z79.4 Long term (current) use of insulin; Z91.19 Patient's noncompliance with other medical treatment and regimen